=== PATIENT | female | born 1990 | race Caucasian/White ===

== ENCOUNTER 2021-03-09 15:42 | Emergency (ER) | payer OTHER, SELFPAY ==
[2021-03-09 16:09] VITALS: BP 138/85; PULSE 80; RESP 18; TEMP 36.7; O2SAT 98; BMI 39.5
--- NOTE | 2021-03-09 16:12 | ED_ITS ---
HPI - General Adult General Chief complaint: Abdominal Pain Stated complaint: dehydration Time Seen by Provider: 03/09/21 16:10 Related Data Previous Rx's Medication Instructions Recorded tramadol 50 mg tablet 50 mg PO Q6H PRN #20 tab 03/09/21 Allergies Allergy/AdvReac Type Severity Reaction Status Date / Time No Known Allergies Allergy Verified 03/09/21 16:09 [No Known Allergies*] [facility] Past Medical History Medical History IBS (irritable bowel syndrome) Vaso vagal episode Social History Social History Advance Directives: No Advance Directives Information Provided: Yes Patient : No Physical Exam Vital Signs: Vital Signs: Last Vital Signs Temp 98.3 F 03/09/21 21:55 Pulse 66 03/09/21 21:55 Resp 16 03/09/21 21:55 BP 139/82 03/09/21 21:55 Pulse Ox 100 03/09/21 21:55 Body Mass Index 39.5 Course Course Course Narrative: Patient presents to the the ED for left lower quadrant Abdominal pain, diarrhea, anoxeria, and runny nose. Patient states had similiar symptoms. Patient vital signs are stabe. Patient will have labs drawn including covid swab. This is Rapid MEdical screening. Medical Decision Making Lab Data Result diagrams: 03/09/21 20:10 03/09/21 20:10 Labs: Lab Results 03/09/21 03/09/21 03/09/21 Range/Units 20:10 20:10 20:10 WBC 6.6 (4.8-10.8) X10*3/uL RBC 5.39 (4.20-5.50) X10*6/uL Hgb 14.9 (12.0-16.0) g/dl Hct 45.1 (37-47) % MCV 83.7 (80-98) fL MCH 27.6 (27.0-33.0) pg MCHC 33.0 (31.0-35.0) g/dl RDW 13.7 (11.0-16.0) % Plt Count 230 (160-400) X10*3/uL MPV 10.4 (9.4-12.3) fL Immature Gran % (Auto) 0.6 H (0.0-0.4) % Neut % (Auto) 53.2 (45-73) % Lymph % (Auto) 35.9 (20-40) % [place] % (Auto) 9.7 (2-11) % Eos % (Auto) 0.0 (0-4) % Baso % (Auto) 0.6 (0-2) % Lymph # (Auto) 2.4 (1.2-4.9) X10*3/uL [place] # (Auto) 0.6 (0.1-1.2) X10*3/uL Eos # (Auto) 0.0 (0.0-0.4) X10*3/uL Baso # (Auto) 0.0 (0.0-0.2) X10*3/uL Abs Immat Gran (auto) 0.04 H (0.00-0.03) X10*3/uL Absolute Neuts (auto) 3.5 (2.0-8.3) X10*3/uL Absolute Nucleated RBC 0.000 (0.0-0.012) X10*3/uL Nucleated RBC % (auto) 0.0 (0.0-0.2) /100WBC Sodium 141 (135-145) mmol/L Potassium 4.0 (3.3-5.1) mmol/L Chloride 110 H (96-108) mmol/L Carbon Dioxide 22 (22-29) mmol/L Anion Gap 13 (12-20) BUN 7 L (9-16) mg/dL Creatinine 0.85 (0.5-1.4) mg/dL Estim Creat Clear Calc 129.5 Estimated GFR > 60 Random Glucose 82 (60-115) mg/dL Calcium 9.3 (8.4-10.2) mg/dL Magnesium (1.6-2.6) mg/dL Total Bilirubin 0.4 (0.0-1.0) mg/dL Direct Bilirubin < 0.2 (0.0-0.5) mg/dL AST 18 (5-31) U/L ALT 22 (0-31) U/L Alkaline Phosphatase 94 (39-117) U/L Total Creatine Kinase (26-140) U/L Total Protein 7.4 (6.5-8.0) g/dL Albumin 4.5 (3.5-5.0) g/dL Lipase 14 (8-78) U/L Urine Color Urine Appearance Urine pH (5.0-8.0) Ur Specific [place] (1.005-1.025) Urine Protein (NEG-TRACE) MG/DL Urine Glucose (UA) (NEG) MG/DL Urine Ketones (NEG) MG/DL Urine Blood (NEG) Urine Nitrite (NEG) Ur Leukocyte Esterase (NEG) Urine RBC (0) /HPF Urine WBC (0-4) /HPF Ur Squamous Epith Cells /LPF Urine Bacteria /LPF Urine Mucus /LPF Urine Test (NEGATIVE) Coronavirus (PCR) NEGATIVE (Negative) Influenza Type A (PCR) NEGATIVE (Negative) Influenza Type B (PCR) NEGATIVE (Negative) RSV RNA Qual (PCR) NEGATIVE (Negative) 03/09/21 03/09/21 03/09/21 Range/Units 20:10 20:15 20:15 WBC (4.8-10.8) X10*3/uL RBC (4.20-5.50) X10*6/uL Hgb (12.0-16.0) g/dl Hct (37-47) % MCV (80-98) fL MCH (27.0-33.0) pg MCHC (31.0-35.0) g/dl RDW (11.0-16.0) % Plt Count (160-400) X10*3/uL MPV (9.4-12.3) fL Immature Gran % (Auto) (0.0-0.4) % Neut % (Auto) (45-73) % Lymph % (Auto) (20-40) % [place] % (Auto) (2-11) % Eos % (Auto) (0-4) % Baso % (Auto) (0-2) % Lymph # (Auto) (1.2-4.9) X10*3/uL [place] # (Auto) (0.1-1.2) X10*3/uL Eos # (Auto) (0.0-0.4) X10*3/uL Baso # (Auto) (0.0-0.2) X10*3/uL Abs Immat Gran (auto) (0.00-0.03) X10*3/uL Absolute Neuts (auto) (2.0-8.3) X10*3/uL Absolute Nucleated RBC (0.0-0.012) X10*3/uL Nucleated RBC % (auto) (0.0-0.2) /100WBC Sodium (135-145) mmol/L Potassium (3.3-5.1) mmol/L Chloride (96-108) mmol/L Carbon Dioxide (22-29) mmol/L Anion Gap (12-20) BUN (9-16) mg/dL Creatinine (0.5-1.4) mg/dL Estim Creat Clear Calc Estimated GFR Random Glucose (60-115) mg/dL Calcium (8.4-10.2) mg/dL Magnesium 2.2 (1.6-2.6) mg/dL Total Bilirubin (0.0-1.0) mg/dL Direct Bilirubin (0.0-0.5) mg/dL AST (5-31) U/L ALT (0-31) U/L Alkaline Phosphatase (39-117) U/L Total Creatine Kinase 92 (26-140) U/L Total Protein (6.5-8.0) g/dL Albumin (3.5-5.0) g/dL Lipase (8-78) U/L Urine Color DARK YELLOW Urine Appearance CLOUDY Urine pH 6.0 (5.0-8.0) Ur Specific [place] >= 1.030 H (1.005-1.025) Urine Protein TRACE (NEG-TRACE) MG/DL Urine Glucose (UA) NEG (NEG) MG/DL Urine Ketones NEG (NEG) MG/DL Urine Blood 3+ H (NEG) Urine Nitrite NEG (NEG) Ur Leukocyte Esterase NEG (NEG) Urine RBC 76-150 H (0) /HPF Urine WBC 1-4 (0-4) /HPF Ur Squamous Epith Cells 1+ /LPF Urine Bacteria 1+ /LPF Urine Mucus TRACE /LPF Urine Test NEGATIVE (NEGATIVE) Coronavirus (PCR) (Negative) Influenza Type A (PCR) (Negative) Influenza Type B (PCR) (Negative) RSV RNA Qual (PCR) (Negative) Discharge Plan Discharge Clinical Impression: Irritable bowel syndrome Patient Disposition: Home, Self-Care Instructions: Irritable Bowel Syndrome (ED) Additional Instructions: Continue taking your dicyclomine 1 tablet every 8 hours as need Selective foods as advised by your gluing pressman Tramadol for increased pain Follow-up with PCP/gluing pressman Prescriptions: New tramadol 50 mg tablet 50 mg PO Q6H PRN (Reason: pain) Qty: 20 RF: 0 Interventions: ED Discharge Assessment Last Done: 03/09/21 22:44 Discharge Date/Time: 03/09/21 22:44
[2021-03-09 20:15] LABS: MANUAL DIFF FLAG NO
[2021-03-09 20:38] LABS: Basophils Percent Auto 0.6 % (0-2); Hematocrit 45.1 % (37-47); Hemoglobin 14.9 g/dl (12.0-16.0); Imm Gran Abs Auto 0.04 X10*3/uL (0.00-0.03); Imm Gran Pct Auto 0.6 % (0.0-0.4); Lymphocytes Absolute Auto 2.4 X10*3/uL (1.2-4.9); Lymphocytes Percent Auto 35.9 % (20-40); Mean Corpuscular Hemoglobin 27.6 pg (27.0-33.0); Mean Corpuscular Volume 83.7 fL (80-98); Mean Platelet Volume 10.4 fL (9.4-12.3); Monocytes Absolute Auto 0.6 X10*3/uL (0.1-1.2); Monocytes Percent Auto 9.7 % (2-11); Neutrophils Absolute Auto 3.5 X10*3/uL (2.0-8.3); Neutrophils Percent Auto 53.2 % (45-73); Platelet Count 230 X10*3/uL (160-400); Red Blood Count 5.39 X10*6/uL (4.20-5.50); Red Cell Distribution Width 13.7 % (11.0-16.0); White Blood Count 6.6 X10*3/uL (4.8-10.8)
[2021-03-09 20:41] LABS: Alanine Aminotransferase 22 U/L (0-31); Albumin Level 4.5 g/dL (3.5-5.0); Alkaline Phosphatase 94 U/L (39-117); Anion Gap 13 (12-20); Aspartate Amino Transferase 18 U/L (5-31); Bilirubin Direct < 0.2 mg/dL (0.0-0.5); Bilirubin Total 0.4 mg/dL (0.0-1.0); Blood Urea Nitrogen 7 mg/dL (9-16); Calcium 9.3 mg/dL (8.4-10.2); Carbon Dioxide 22 mmol/L (22-29); Chloride 110 mmol/L (96-108); Creatinine Clr Calc Pharmacy 129.5; Estimated Glomerular Filt Rate > 60; Glucose Random 82 mg/dL (60-115); Lipase 14 U/L (8-78); Magnesium 2.2 mg/dL (1.6-2.6); Sodium 141 mmol/L (135-145); Total Protein 7.4 g/dL (6.5-8.0)
[2021-03-09 20:46] LABS: Glucose Urine UA NEG (NEG); Leukocyte Esterase Urine NEG (NEG); Nitrite Urine NEG (NEG); Specific Gravity - Urine >= 1.030 (1.005-1.025); UACC Culture Trigger NO; Urine Blood 3+ (NEG); Urine Ketones NEG (NEG); Urine Protein TRACE MG/DL (NEG-TRACE)
[2021-03-09 20:49] LABS: UPreg QC Valid YES; Urine Pregnancy NEGATIVE (NEGATIVE)
[2021-03-09 20:50] LABS: Appearance Urine CLOUDY; Color Urine DARK YELLOW
[2021-03-09 20:57] LABS: Bacteria Urine 1+ /LPF; Mucus Urine TRACE /LPF; Squamous Epithelial Cell Urine 1+ /LPF
[2021-03-09 21:33] LABS: Influenza A PCR NEGATIVE (Negative); Influenza B PCR NEGATIVE (Negative); Resp Syncy Virus RNA Qual PCR NEGATIVE (Negative); SARS COV2 PCR INHOUSE NEGATIVE (Negative)
--- NOTE | 2021-03-09 21:51 | ED_ITS ---
HPI - Abdominal Pain General Chief Complaint: Abdominal Pain Stated Complaint: dehydration Time Seen by Provider: 03/09/21 16:10 Source: patient Mode of arrival: ambulatory History of Present Illness HPI narrative: Patient with history of anxiety IBS taking dicyclomine once in a while complaining of diffuse abdominal pain with bloating for last few days unable to eat much also complaining of nasal congestion no fever no cough patient had diarrhea 2 days ago no nausea no vomiting also has increased anxiety lately Related Data Previous Rx's Medication Instructions Recorded tramadol 50 mg tablet 50 mg PO Q6H PRN #20 tab 03/09/21 Allergies Allergy/AdvReac Type Severity Reaction Status Date / Time No Known Allergies Allergy Verified 03/09/21 16:09 [No Known Allergies*] Review of Systems Review of Systems Constitutional : No Weight loss, No Fever, No Chills ENT/Mouth : No sore throat, No Rhinorrhea Eyes: No Eye Pain, No Swelling Cardiovascular : No Chest Pain, no palpitations Respiratory : No Cough, No Sputum, no shortness of breath Gastrointestinal : no Nausea, No Vomiting, + Diarrhea, + abdominal Pain, no black stools Genitourinary : No Dysuria, No Urinary Frequency Musculoskeletal : No joint pain, No Myalgias, No Joint Swelling Skin : No Skin Lesions, No rash Neuro : No Weakness, No Numbness, No Dizziness, No Headache Psych : + Anxiety, No Depression Heme/Lymph: No Bruising, No Lymphadenopathy Endocrine : No Polyuria, No Polydipsia All other systems reviewed and are negative Physical Exam Vital Signs: Vital Signs: Last Vital Signs Temp 98.3 F 03/09/21 21:55 Pulse 66 03/09/21 21:55 Resp 16 03/09/21 21:55 BP 139/82 03/09/21 21:55 Pulse Ox 100 03/09/21 21:55 Body Mass Index 39.5 Appearance: Alert. Oriented X3. No acute distress. Eyes: No pallor or icterus ENT: Pharynx normal. Oral Mucosa moist Neck: Normal inspection. Neck supple. CVS: Normal heart rate and rhythm. Pulses normal. Respiratory: No respiratory distress. Equal air entry bilateral, no wheezing/rales/rhonchi Abdomen: Soft and nontender. Bowel sounds are present, no mass palpable, no CVA tenderness Skin: Skin warm and dry. Normal skin color. Normal skin turgor. Extremities: No lower extremity edema. No calf tenderness Neuro: Oriented X 3. MDM - Abdominal Pain Lab Data Attestation: I reviewed the patient's lab results. Result diagrams: 03/09/21 20:10 03/09/21 20:10 Labs: Lab Results 03/09/21 03/09/21 03/09/21 Range/Units 20:10 20:10 20:10 WBC 6.6 (4.8-10.8) X10*3/uL RBC 5.39 (4.20-5.50) X10*6/uL Hgb 14.9 (12.0-16.0) g/dl Hct 45.1 (37-47) % MCV 83.7 (80-98) fL MCH 27.6 (27.0-33.0) pg MCHC 33.0 (31.0-35.0) g/dl RDW 13.7 (11.0-16.0) % Plt Count 230 (160-400) X10*3/uL MPV 10.4 (9.4-12.3) fL Immature Gran % (Auto) 0.6 H (0.0-0.4) % Neut % (Auto) 53.2 (45-73) % Lymph % (Auto) 35.9 (20-40) % [place] % (Auto) 9.7 (2-11) % Eos % (Auto) 0.0 (0-4) % Baso % (Auto) 0.6 (0-2) % Lymph # (Auto) 2.4 (1.2-4.9) X10*3/uL [place] # (Auto) 0.6 (0.1-1.2) X10*3/uL Eos # (Auto) 0.0 (0.0-0.4) X10*3/uL Baso # (Auto) 0.0 (0.0-0.2) X10*3/uL Abs Immat Gran (auto) 0.04 H (0.00-0.03) X10*3/uL Absolute Neuts (auto) 3.5 (2.0-8.3) X10*3/uL Absolute Nucleated RBC 0.000 (0.0-0.012) X10*3/uL Nucleated RBC % (auto) 0.0 (0.0-0.2) /100WBC Sodium 141 (135-145) mmol/L Potassium 4.0 (3.3-5.1) mmol/L Chloride 110 H (96-108) mmol/L Carbon Dioxide 22 (22-29) mmol/L Anion Gap 13 (12-20) BUN 7 L (9-16) mg/dL Creatinine 0.85 (0.5-1.4) mg/dL Estim Creat Clear Calc 129.5 Estimated GFR > 60 Random Glucose 82 (60-115) mg/dL Calcium 9.3 (8.4-10.2) mg/dL Magnesium (1.6-2.6) mg/dL Total Bilirubin 0.4 (0.0-1.0) mg/dL Direct Bilirubin < 0.2 (0.0-0.5) mg/dL AST 18 (5-31) U/L ALT 22 (0-31) U/L Alkaline Phosphatase 94 (39-117) U/L Total Creatine Kinase (26-140) U/L Total Protein 7.4 (6.5-8.0) g/dL Albumin 4.5 (3.5-5.0) g/dL Lipase 14 (8-78) U/L Urine Color Urine Appearance Urine pH (5.0-8.0) Ur Specific [place] (1.005-1.025) Urine Protein (NEG-TRACE) MG/DL Urine Glucose (UA) (NEG) MG/DL Urine Ketones (NEG) MG/DL Urine Blood (NEG) Urine Nitrite (NEG) Ur Leukocyte Esterase (NEG) Urine RBC (0) /HPF Urine WBC (0-4) /HPF Ur Squamous Epith Cells /LPF Urine Bacteria /LPF Urine Mucus /LPF Urine Test (NEGATIVE) Coronavirus (PCR) NEGATIVE (Negative) Influenza Type A (PCR) NEGATIVE (Negative) Influenza Type B (PCR) NEGATIVE (Negative) RSV RNA Qual (PCR) NEGATIVE (Negative) 03/09/21 03/09/21 03/09/21 Range/Units 20:10 20:15 20:15 WBC (4.8-10.8) X10*3/uL RBC (4.20-5.50) X10*6/uL Hgb (12.0-16.0) g/dl Hct (37-47) % MCV (80-98) fL MCH (27.0-33.0) pg MCHC (31.0-35.0) g/dl RDW (11.0-16.0) % Plt Count (160-400) X10*3/uL MPV (9.4-12.3) fL Immature Gran % (Auto) (0.0-0.4) % Neut % (Auto) (45-73) % Lymph % (Auto) (20-40) % [place] % (Auto) (2-11) % Eos % (Auto) (0-4) % Baso % (Auto) (0-2) % Lymph # (Auto) (1.2-4.9) X10*3/uL [place] # (Auto) (0.1-1.2) X10*3/uL Eos # (Auto) (0.0-0.4) X10*3/uL Baso # (Auto) (0.0-0.2) X10*3/uL Abs Immat Gran (auto) (0.00-0.03) X10*3/uL Absolute Neuts (auto) (2.0-8.3) X10*3/uL Absolute Nucleated RBC (0.0-0.012) X10*3/uL Nucleated RBC % (auto) (0.0-0.2) /100WBC Sodium (135-145) mmol/L Potassium (3.3-5.1) mmol/L Chloride (96-108) mmol/L Carbon Dioxide (22-29) mmol/L Anion Gap (12-20) BUN (9-16) mg/dL Creatinine (0.5-1.4) mg/dL Estim Creat Clear Calc Estimated GFR Random Glucose (60-115) mg/dL Calcium (8.4-10.2) mg/dL Magnesium 2.2 (1.6-2.6) mg/dL Total Bilirubin (0.0-1.0) mg/dL Direct Bilirubin (0.0-0.5) mg/dL AST (5-31) U/L ALT (0-31) U/L Alkaline Phosphatase (39-117) U/L Total Creatine Kinase 92 (26-140) U/L Total Protein (6.5-8.0) g/dL Albumin (3.5-5.0) g/dL Lipase (8-78) U/L Urine Color DARK YELLOW Urine Appearance CLOUDY Urine pH 6.0 (5.0-8.0) Ur Specific [place] >= 1.030 H (1.005-1.025) Urine Protein TRACE (NEG-TRACE) MG/DL Urine Glucose (UA) NEG (NEG) MG/DL Urine Ketones NEG (NEG) MG/DL Urine Blood 3+ H (NEG) Urine Nitrite NEG (NEG) Ur Leukocyte Esterase NEG (NEG) Urine RBC 76-150 H (0) /HPF Urine WBC 1-4 (0-4) /HPF Ur Squamous Epith Cells 1+ /LPF Urine Bacteria 1+ /LPF Urine Mucus TRACE /LPF Urine Test NEGATIVE (NEGATIVE) Coronavirus (PCR) (Negative) Influenza Type A (PCR) (Negative) Influenza Type B (PCR) (Negative) RSV RNA Qual (PCR) (Negative) Discharge Plan Discharge Clinical Impression: Irritable bowel syndrome Qualifiers: Irritable bowel syndrome type: with diarrhea Qualified Code(s): K58.0 - Irrita ble bowel syndrome with diarrhea Patient Disposition: Home, Self-Care Instructions: Irritable Bowel Syndrome (ED) Additional Instructions: Continue taking your dicyclomine 1 tablet every 8 hours as need Selective foods as advised by your insole lip turner Tramadol for increased pain Follow-up with PCP/insole lip turner Prescriptions: New tramadol 50 mg tablet 50 mg PO Q6H PRN (Reason: pain) Qty: 20 RF: 0 PMFSH Past Medical History Medical History IBS (irritable bowel syndrome) Vaso vagal episode Social History Social History Advance Directives: No Advance Directives Information Provided: Yes Patient : No
[2021-03-09 21:55] VITALS: BP 139/82; PULSE 66; RESP 16; TEMP 36.8; O2SAT 100
[2021-03-09] MEDS: traMADoL HCL 50 MG TABLET PO (22:39)
[2021-03-09] MEDS: LORazepam 0.5 MG TABLET PO (22:40)
== END 2021-03-09 22:44 | disposition home or self-care (01) ==
PROVIDERS: Physician Assistant; Emergency Provider Internal Medicine; PCP Internal Medicine
DX: K58.0 Irritable bowel syndrome with diarrhea (principal); R10.30 Lower abdominal pain, unspecified; Z20.822 Contact with and (suspected) exposure to COVID-19; Z79.899 Other long term (current) drug therapy
CPT/HCPCS: 0241U; 36415; 80053; 80076; 81001; 81025; 82248; 82550; 83690; 83735; 85025; 99283; 99284

== ENCOUNTER 2021-03-16 11:16 | Emergency (ER) | payer OTHER, SELFPAY ==
--- NOTE | ~2021-03-16 | CT_ITS ---
EXAMINATION: CT ABDOMEN AND PELVIS WITHOUT CONTRAST CLINICAL INFORMATION: Right-sided abdominal pain. Evaluate for appendicitis. COMPARISON: CT abdomen/pelvis dated 02/21/2019. TECHNIQUE: Multidetector volumetric imaging was performed from the superior aspect of the liver through the pubic symphysis. Sagittal and coronal reformatted images were obtained on the technologist's workstation. This CT examination was performed using dose optimization techniques as appropriate, variously including the following: *Automated exposure control *Adjustment of mA and/or kV according to patient size (this includes techniques or standardized protocols for targeted exams where dose is matched to indication/reason for exam; i.e. extremities or head) *Use of iterative reconstruction technique DLP: 1117 mGy-cm. FINDINGS: LUNG BASES: The visualized lung bases are unremarkable. LIVER, GALLBLADDER, AND BILIARY TREE: The liver is normal in size, shape, and attenuation. No focal hepatic lesion or biliary ductal dilatation is present. The gallbladder is unremarkable with no evidence of radiopaque gallstones, gallbladder wall thickening, or obvious pericholecystic inflammatory changes. PANCREAS: Unremarkable. SPLEEN: Unremarkable. ADRENAL GLANDS: Unremarkable. KIDNEYS AND URETERS: The kidneys are normal in size, shape, and attenuation. Right mid/upper pole renal stone measuring 0.2 cm, too small to catheterize by Hounsfield units. This is located approximately 11.5 cm from the posterior axillary line. No additional renal or ureteral stone. No hydronephrosis or hydroureter. No perinephric stranding. BLADDER: Partially distended and unremarkable. GASTROINTESTINAL TRACT: No bowel wall thickening or associated inflammatory change. No small or large bowel obstruction. Unremarkable appendix. PERITONEAL CAVITY: No intra-abdominal free air or free fluid. No intra-abdominal mass or organized fluid collection/abscess formation. ABDOMINAL WALL: No significant hernia is appreciated. LYMPH NODES: No significant lymphadenopathy. VASCULAR: Unremarkable. PELVIC VISCERA: The uterus and adnexa are unremarkable. OSSEOUS STRUCTURES: Unremarkable. CT/CT abdomen pelvis wo con IMPRESSION: 1. Left mid/upper pole renal stone measuring 0.2 cm. No right renal stone. No ureteral stone. No hydronephrosis or hydroureter. Unremarkable urinary bladder. 2. No bowel wall thickening or associated fat or change. No small or large bowel obstruction. Unremarkable appendix. 3. No intra-abdominal mass, lymphadenopathy, or ascites.
--- NOTE | ~2021-03-16 | US_ITS ---
EXAMINATION: US ABDOMEN LIMITED CLINICAL INFORMATION: Epigastric pain. Gallbladder disease. COMPARISON: CT abdomen/pelvis dated 02/21/2019. Abdominal radiograph dated 03/19/2019. TECHNIQUE: Real-time imaging of the right upper quadrant abdominal viscera. FINDINGS: PANCREAS: The visualized pancreatic head and body are unremarkable. The tail is obscured by overlying bowel gas. LIVER: Unremarkable. The liver is normal in size. The liver contour is normal. Parenchymal echogenicity is normal. No focal hepatic lesion. There is no intrahepatic biliary duct dilatation seen. GALLBLADDER: Normal. The gallbladder is physiologically distended without evidence of stones, sludge, polyps, wall thickening or pericholecystic fluid. COMMON BILE DUCT: Normal in caliber measuring 0.4 cm in diameter. RIGHT KIDNEY: Normal. No hydronephrosis. No renal calculi or focal parenchymal lesions. The kidney measures 10.9 cm in maximum dimension. FREE FLUID: None. US/US abdomen limited IMPRESSION: Unremarkable examination.
[2021-03-16 11:59] VITALS: BP 129/77; PULSE 63; RESP 18; TEMP 36.9; O2SAT 100; BMI 37.5
--- NOTE | 2021-03-16 12:29 | ED_ITS ---
HPI - Abdominal Pain General Chief Complaint: Abdominal Pain Stated Complaint: stomach pains Time Seen by Provider: 03/16/21 12:27 Source: patient Mode of arrival: ambulatory Limitations: no limitations History of Present Illness HPI narrative: 30-year-old female came in for evaluation of abdominal pain. Abdominal pain started a week ago, diffuse abdominal pain that is mostly constant, pain is worsening with foods nothing relieves the, no other associated symptoms with to patient was seen in the department last week for evaluation of similar symptoms patient was diagnosed with IBS flare. No dysuria, no frequency. Related Data Previous Rx's Medication Instructions Recorded tramadol 50 mg tablet 50 mg PO Q6H PRN #20 tab 03/09/21 Allergies Allergy/AdvReac Type Severity Reaction Status Date / Time No Known Allergies Allergy Verified 03/09/21 16:09 [No Known Allergies*] Review of Systems Review of Systems All other systems are reviewed and are negative Constitutional: Reports as per HPI and Reports no additional constitutional complaints Eyes: Reports as per HPI and Reports no additional eye complaints Reports system reviewed and no additional complaints, except as documented Cardiovascular: Reports as per HPI and Reports no additional cardiovascular complaints Respiratory: Reports as per HPI and Reports no additional respiratory complaints Gastrointestinal: Reports as per HPI and Reports no additional gastrointestinal complaints Genitourinary: Reports no additional female genitourinary complaints Musculoskeletal: Reports no additional musculoskeletal complaints Skin/Breast: Reports system reviewed and no additional complaints, except as docu Psychiatric: Reports no additional psychiatric complaints Endocrine: Reports no additional endocrine complaints Hematologic/Lymphatic: Reports no additional hematologic/lymphatic complaints Allergic/Immunologic: Reports no additional allergic/immunologic complaints Reports system reviewed and no additional complaints, except as documented and Reports Abnormal speech present Physical Exam Vital Signs: Vital Signs: Last Vital Signs Temp 97.8 F 03/16/21 14:00 Pulse 59 03/16/21 14:00 Resp 18 03/16/21 11:59 BP 144/86 H 03/16/21 14:00 Pulse Ox 100 03/16/21 14:00 Body Mass Index 37.5 Vital signs have been reviewed as appeared to be correct. Blood pressure normal. Heart rate normal. Respiration rate normal. Temperature normal. Oxygen saturation normal. Appearance: Alert. Oriented X3. No acute distress. Head: Normal external exam. Normocephalic. Atraumatic. No [place] signs noted. No raccoon eyes noted Eyes: PERRLA. EOMI. Conjunctiva and sclera normal. Eyelids normal. ENT: TM's Normal. Pharynx normal. Uvula midline. Moist mucous membranes. No trismus noted. No drooling noted. No muffled voice noted. Neck: Normal inspection. Neck supple. FROM. No adenopathy. Thyroid Normal. No meningeal signs. No neck mass noted. CVS: Normal heart rate and rhythm. Heart sound normal. No murmurs noted. Pulses normal throughout. Respiratory: No respiratory distress. Painless inspiration. Breath sounds normal. No wheezes/rales/rhonchi noted. Chest nontender. No accessory muscle usage noted or decreased air movement noted. Abdomen: Soft and nontender. Bowel sounds normal in all 4 quadrants. No distention noted. No organomegaly noted. No visible injury noted. Back: No CVA tenderness. Full range of motion noted. Skin: Skin warm and dry. Normal skin color. Normal skin turgor. No rashes/lesions/lacerations noted. Extremities: No lower extremity edema. Extremities exhibit normal range of motion. Extremities nontender. Neuro: Oriented X 3. Cranial nerve exam: II-XII are grossly intact No motor deficit. No sensory deficit. Reflexes normal. Course Course Course Narrative: Assessment and plan. 30-year-old female came in for nonspecific abdominal pain that has improved but she is in the emergency department, patient was history of IBS. Patient's history, patient's exam, labs, and CT abdomen pelvis, and ultrasound of the gallbladder findings are more consistent with possible IBS versus gastritis. Patient is already having an appointment with systems applications programming lead in the next week patient was instructed to keep the appointment next week. MDM - Abdominal Pain Medical Records Attestation: I reviewed the patient's medical records. Lab Data Attestation: I reviewed the patient's lab results. Result diagrams: 03/16/21 12:50 03/16/21 12:49 Labs: Lab Results 03/16/21 03/16/21 03/16/21 Range/Units 12:49 12:49 12:50 WBC 5.1 (4.8-10.8) X10*3/uL RBC 5.26 (4.20-5.50) X10*6/uL Hgb 14.3 (12.0-16.0) g/dl Hct 43.3 (37-47) % MCV 82.3 (80-98) fL MCH 27.2 (27.0-33.0) pg MCHC 33.0 (31.0-35.0) g/dl RDW 13.6 (11.0-16.0) % Plt Count 210 (160-400) X10*3/uL MPV 9.9 (9.4-12.3) fL Immature Gran % (Auto) 0.2 (0.0-0.4) % Neut % (Auto) 51.1 (45-73) % Lymph % (Auto) 36.2 (20-40) % [place] % (Auto) 12.1 H (2-11) % Eos % (Auto) 0.0 (0-4) % Baso % (Auto) 0.4 (0-2) % Lymph # (Auto) 1.8 (1.2-4.9) X10*3/uL [place] # (Auto) 0.6 (0.1-1.2) X10*3/uL Eos # (Auto) 0.0 (0.0-0.4) X10*3/uL Baso # (Auto) 0.0 (0.0-0.2) X10*3/uL Abs Immat Gran (auto) 0.01 (0.00-0.03) X10*3/uL Absolute Neuts (auto) 2.6 (2.0-8.3) X10*3/uL Absolute Nucleated RBC 0.000 (0.0-0.012) X10*3/uL Nucleated RBC % (auto) 0.0 (0.0-0.2) /100WBC Sodium 142 (135-145) mmol/L Potassium 3.9 (3.3-5.1) mmol/L Chloride 109 H (96-108) mmol/L Carbon Dioxide 24 (22-29) mmol/L Anion Gap 13 (12-20) BUN 6 L (9-16) mg/dL Creatinine 0.86 (0.5-1.4) mg/dL Estim Creat Clear Calc 128.4 Estimated GFR > 60 Random Glucose 93 (60-115) mg/dL Calcium 9.1 (8.4-10.2) mg/dL Total Bilirubin 0.5 (0.0-1.0) mg/dL Direct Bilirubin < 0.2 (0.0-0.5) mg/dL AST 21 (5-31) U/L ALT 20 (0-31) U/L Alkaline Phosphatase 81 (39-117) U/L Total Protein 6.9 (6.5-8.0) g/dL Albumin 4.2 (3.5-5.0) g/dL Lipase 9 (8-78) U/L Urine Color YELLOW Urine Appearance CLEAR Urine pH 6.0 (5.0-8.0) Ur Specific [place] 1.025 (1.005-1.025) Urine Protein TRACE (NEG-TRACE) MG/DL Urine Glucose (UA) NEG (NEG) MG/DL Urine Ketones 5 (NEG) MG/DL Urine Blood TRACE (NEG) Urine Nitrite NEG (NEG) Ur Leukocyte Esterase NEG (NEG) Urine RBC 1-4 (0) /HPF Urine WBC 0-2 (0-4) /HPF Ur Squamous Epith Cells 2+ /LPF Urine Bacteria TRACE /LPF Urine Mucus 2+ /LPF Urine Test (NEGATIVE) 03/16/21 Range/Units 12:50 WBC (4.8-10.8) X10*3/uL RBC (4.20-5.50) X10*6/uL Hgb (12.0-16.0) g/dl Hct (37-47) % MCV (80-98) fL MCH (27.0-33.0) pg MCHC (31.0-35.0) g/dl RDW (11.0-16.0) % Plt Count (160-400) X10*3/uL MPV (9.4-12.3) fL Immature Gran % (Auto) (0.0-0.4) % Neut % (Auto) (45-73) % Lymph % (Auto) (20-40) % [place] % (Auto) (2-11) % Eos % (Auto) (0-4) % Baso % (Auto) (0-2) % Lymph # (Auto) (1.2-4.9) X10*3/uL [place] # (Auto) (0.1-1.2) X10*3/uL Eos # (Auto) (0.0-0.4) X10*3/uL Baso # (Auto) (0.0-0.2) X10*3/uL Abs Immat Gran (auto) (0.00-0.03) X10*3/uL Absolute Neuts (auto) (2.0-8.3) X10*3/uL Absolute Nucleated RBC (0.0-0.012) X10*3/uL Nucleated RBC % (auto) (0.0-0.2) /100WBC Sodium (135-145) mmol/L Potassium (3.3-5.1) mmol/L Chloride (96-108) mmol/L Carbon Dioxide (22-29) mmol/L Anion Gap (12-20) BUN (9-16) mg/dL Creatinine (0.5-1.4) mg/dL Estim Creat Clear Calc Estimated GFR Random Glucose (60-115) mg/dL Calcium (8.4-10.2) mg/dL Total Bilirubin (0.0-1.0) mg/dL Direct Bilirubin (0.0-0.5) mg/dL AST (5-31) U/L ALT (0-31) U/L Alkaline Phosphatase (39-117) U/L Total Protein (6.5-8.0) g/dL Albumin (3.5-5.0) g/dL Lipase (8-78) U/L Urine Color Urine Appearance Urine pH (5.0-8.0) Ur Specific [place] (1.005-1.025) Urine Protein (NEG-TRACE) MG/DL Urine Glucose (UA) (NEG) MG/DL Urine Ketones (NEG) MG/DL Urine Blood (NEG) Urine Nitrite (NEG) Ur Leukocyte Esterase (NEG) Urine RBC (0) /HPF Urine WBC (0-4) /HPF Ur Squamous Epith Cells /LPF Urine Bacteria /LPF Urine Mucus /LPF Urine Test NEGATIVE (NEGATIVE) Imaging Data CT scan - abdomen: Radiologist's impression: 1. Left mid/upper pole renal stone measuring 0.2 cm. No right renal stone. No ureteral stone. No hydronephrosis or hydroureter. Unremarkable urinary bladder. ?2. No bowel wall thickening or associated fat or change. No small or large bowel obstruction. Unremarkable appendix. ?3. No intra-abdominal mass, lymphadenopathy, or ascites.? US - abdomen: Radiologist's impression: Unremarkable exam. Discharge Plan Discharge Clinical Impression: Abdominal pain Patient Disposition: Home, Self-Care Instructions: Abdominal Pain (ED) Prescriptions: No Action tramadol 50 mg tablet 50 mg PO Q6H PRN (Reason: pain) Qty: 20 RF: 0 Referrals: Komal Diaz MD [Primary Care Provider] - 2 days PMFSH Past Medical History Medical History IBS (irritable bowel syndrome) Vaso vagal episode Social History Social History Advance Directives: No Advance Directives Information Provided: No Patient : No
[2021-03-16] MEDS: 0.9 % Sodium Chloride 1,000 ML 999 ML IVCONT (12:55)
[2021-03-16] MEDS: Famotidine/PF 20 MG/2 ML VIAL IVPUSH (12:55)
[2021-03-16 12:57] LABS: MANUAL DIFF FLAG NO
[2021-03-16 12:58] LABS: Basophils Percent Auto 0.4 % (0-2); Hematocrit 43.3 % (37-47); Hemoglobin 14.3 g/dl (12.0-16.0); Imm Gran Abs Auto 0.01 X10*3/uL (0.00-0.03); Imm Gran Pct Auto 0.2 % (0.0-0.4); Lymphocytes Absolute Auto 1.8 X10*3/uL (1.2-4.9); Lymphocytes Percent Auto 36.2 % (20-40); Mean Corpuscular Hemoglobin 27.2 pg (27.0-33.0); Mean Corpuscular Volume 82.3 fL (80-98); Mean Platelet Volume 9.9 fL (9.4-12.3); Monocytes Absolute Auto 0.6 X10*3/uL (0.1-1.2); Monocytes Percent Auto 12.1 % (2-11); Neutrophils Absolute Auto 2.6 X10*3/uL (2.0-8.3); Neutrophils Percent Auto 51.1 % (45-73); Platelet Count 210 X10*3/uL (160-400); Red Blood Count 5.26 X10*6/uL (4.20-5.50); Red Cell Distribution Width 13.6 % (11.0-16.0); White Blood Count 5.1 X10*3/uL (4.8-10.8)
[2021-03-16 13:01] LABS: Glucose Urine UA NEG (NEG); Leukocyte Esterase Urine NEG (NEG); Nitrite Urine NEG (NEG); Specific Gravity - Urine 1.025 (1.005-1.025); UACC Culture Trigger NO; Urine Blood TRACE (NEG); Urine Ketones 5 MG/DL (NEG); Urine Protein TRACE MG/DL (NEG-TRACE)
[2021-03-16 13:05] LABS: Appearance Urine CLEAR; Color Urine YELLOW
[2021-03-16 13:06] LABS: UPreg QC Valid YES; Urine Pregnancy NEGATIVE (NEGATIVE)
[2021-03-16 13:17] LABS: Bacteria Urine TRACE /LPF; Mucus Urine 2+ /LPF; Squamous Epithelial Cell Urine 2+ /LPF; WBC Urine 0-2 /HPF (0-4)
[2021-03-16 13:21] LABS: Alanine Aminotransferase 20 U/L (0-31); Albumin Level 4.2 g/dL (3.5-5.0); Alkaline Phosphatase 81 U/L (39-117); Anion Gap 13 (12-20); Aspartate Amino Transferase 21 U/L (5-31); Bilirubin Direct < 0.2 mg/dL (0.0-0.5); Bilirubin Total 0.5 mg/dL (0.0-1.0); Blood Urea Nitrogen 6 mg/dL (9-16); Calcium 9.1 mg/dL (8.4-10.2); Carbon Dioxide 24 mmol/L (22-29); Chloride 109 mmol/L (96-108); Creatinine Clr Calc Pharmacy 128.4; Estimated Glomerular Filt Rate > 60; Glucose Random 93 mg/dL (60-115); Lipase 9 U/L (8-78); Potassium 3.9 mmol/L (3.3-5.1); Sodium 142 mmol/L (135-145); Total Protein 6.9 g/dL (6.5-8.0)
[2021-03-16 14:00] VITALS: BP 144/86; PULSE 59; TEMP 36.6; O2SAT 100
[2021-03-16 15:13] VITALS: BP 127/72; PULSE 60; RESP 18; O2SAT 98
== END 2021-03-16 15:14 | disposition home or self-care (01) ==
PROVIDERS: Emergency Provider Emergency Medicine; PCP Internal Medicine
DX: R10.9 Unspecified abdominal pain (principal)
CPT/HCPCS: 36415; 74176; 76705; 80048; 80076; 81001; 81003; 81025; 83690; 85025; 96361; 96374; 99284

== ENCOUNTER 2021-07-17 18:15 | Emergency (ER) | payer OTHER, SELFPAY ==
--- NOTE | ~2021-07-17 | CT_ITS ---
EXAMINATION: CT ABDOMEN AND PELVIS WITH CONTRAST CLINICAL INFORMATION: Left lower quadrant and left flank pain. COMPARISON: Abdominal ultrasound dated from 03/16/[address] abdomen/pelvis dated from 12/14/2020. TECHNIQUE: Multidetector volumetric images were obtained from the superior aspect of the liver through the pubic symphysis following administration 85 mL of Omnipaque 350 intravenous contrast. Sagittal and coronal reformatted images were obtained on the technologist's workstation. Oral contrast: No This CT examination was performed using dose optimization techniques as appropriate, variously including the following: *Automated exposure control *Adjustment of mA and/or kV according to patient size (this includes techniques or standardized protocols for targeted exams where dose is matched to indication/reason for exam; i.e. extremities or head) *Use of iterative reconstruction technique DLP: 979 mGy-cm FINDINGS: LUNG BASES: Subsegmental atelectasis. No focal consolidation or pleural effusion. LIVER, GALLBLADDER, AND BILIARY TREE: The liver is normal in size, shape, and attenuation. No focal hepatic lesion or biliary ductal dilatation is present. The gallbladder is unremarkable with no evidence of radiopaque gallstones, gallbladder wall thickening, or obvious pericholecystic inflammatory changes. PANCREAS: Unremarkable. SPLEEN: Unremarkable. ADRENAL GLANDS: Unremarkable. KIDNEYS AND URETERS: The kidneys are normal in size, shape, and attenuation. Redemonstration of a punctate stone in the upper pole of the left kidney. No hydronephrosis or hydroureter. No perinephric stranding. BLADDER: Unremarkable. GASTROINTESTINAL TRACT: The stomach and the small bowel are nondilated. There are however several fluid-filled loops of small bowel with prominent mesenteric lymph nodes. Normal appendix. No pericolic inflammatory changes or bowel obstruction. Normal appendix. ABDOMINAL WALL: No significant hernia is appreciated. LYMPH NODES: Normal. VASCULAR: Unremarkable. PELVIC VISCERA: Unremarkable. OSSEOUS STRUCTURES: Unremarkable. CT/CT abdomen pelvis w con IMPRESSION: Fluid-filled loops of small bowel with prominent mesenteric lymph nodes and subtle mesentery engorgement raising the possibility of gastroenteritis in the appropriate clinical context. Nonobstructive left-sided renal calculus.
[2021-07-17 20:27] VITALS: BP 143/92; PULSE 84; RESP 16; TEMP 36.8; O2SAT 100; BMI 39.5
[2021-07-17 20:43] LABS: Basophils Percent Auto 0.2 % (0-2); Eosinophils Absolute Auto 0.1 X10*3/uL (0.0-0.4); Eosinophils Percent Auto 0.8 % (0-4); Hematocrit 43.2 % (37.0-47.0); Hemoglobin 14.2 g/dl (12.0-16.0); Imm Gran Abs Auto 0.03 X10*3/uL (0.00-0.03); Imm Gran Pct Auto 0.5 % (0.0-0.4); Lymphocytes Absolute Auto 1.6 X10*3/uL (1.2-4.9); Lymphocytes Percent Auto 26.7 % (20-40); MANUAL DIFF FLAG NO; Mean Corpuscular HGB Conc 32.9 g/dl (31.0-35.0); Mean Corpuscular Hemoglobin 27.6 pg (27.0-33.0); Mean Platelet Volume 9.3 fL (9.4-12.3); Monocytes Absolute Auto 0.9 X10*3/uL (0.1-1.2); Monocytes Percent Auto 14.6 % (2-11); Neutrophils Absolute Auto 3.5 x10*3/uL (2.0-8.3); Neutrophils Percent Auto 57.2 % (45-73); Platelet Count 196 X10*3/uL (160-400); Red Blood Count 5.14 X10*6/uL (4.20-5.50); Red Cell Distribution Width 13.2 % (11.0-16.0)
[2021-07-17 20:51] LABS: Appearance Urine CLEAR; Color Urine YELLOW; Glucose Urine UA NEG (NEG); Leukocyte Esterase Urine NEG (NEG); Nitrite Urine NEG (NEG); Specific Gravity - Urine >= 1.030 (1.005-1.025); Urine Blood NEG (NEG); Urine Ketones NEG (NEG); Urine Protein NEG (NEG-TRACE)
[2021-07-17 20:56] LABS: UPreg QC Valid YES; Urine Pregnancy NEGATIVE (NEGATIVE)
[2021-07-17 21:03] LABS: Alanine Aminotransferase 23 U/L (0-31); Albumin Level 4.2 g/dL (3.5-5.0); Alkaline Phosphatase 102 U/L (39-117); Anion Gap 11 (12-20); Aspartate Amino Transferase 24 U/L (5-31); Bilirubin Total 0.3 mg/dL (0.0-1.0); Blood Urea Nitrogen 9 mg/dL (9-16); Calcium 8.6 mg/dL (8.4-10.2); Carbon Dioxide 25 mmol/L (22-29); Chloride 108 mmol/L (96-108); Creatinine Clr Calc Pharmacy 139.2; Estimated Glomerular Filt Rate > 60; Glucose Random 78 mg/dL (60-115); Lipase 13 U/L (8-78); Potassium 3.9 mmol/L (3.3-5.1); Sodium 140 mmol/L (135-145); Total Protein 7.1 g/dL (6.5-8.0)
[2021-07-17] MEDS: Morphine Sulfate 4 MG/ML CARTRIDGE IM (22:53)
[2021-07-17] MEDS: 0.9 % Sodium Chloride 1,000 ML 999 ML IV (22:53)
[2021-07-17] MEDS: ondansetron HCL 4 MG/2 ML VIAL IVPUSH (22:53)
[2021-07-17] MEDS: iohexoL 350 MG/ML 100 ML INFUS..BTL 85 ML IV (23:16)
[2021-07-17 23:41] VITALS: BP 137/78; PULSE 73; RESP 16; O2SAT 99
[2021-07-18 00:01] LABS: COVID-19 Test Negative (Negative); IDNOW Serial# 9DD0AD1C
--- NOTE | 2021-07-18 00:05 | ED_ITS ---
HPI - Abdominal Pain General Chief Complaint: Abdominal Pain Stated Complaint: ? kidney infected Time Seen by Provider: 07/17/21 22:00 Source: patient Mode of arrival: ambulatory Limitations: no limitations History of Present Illness HPI narrative: 30-year-old female with 2 weeks low back pain presents for sudden worsening left back pain radiating to her left lower quadrant. States last night she was vomiting from the pain and felt feverish. She has that headache today, she has body aches and is nauseous. She has had diarrhea. She can not eat due to the nausea. Patient's past medical history of kidney stones, states this feels like a kidney stone. States the pain comes and goes and is worse with movement, is a 5/10. No abdominal surgeries. As she does have a history of IBS. Related Data Previous Rx's Medication Instructions Recorded tramadol 50 mg tablet 50 mg PO Q6H PRN #20 tab 03/09/21 ibuprofen 800 mg tablet 800 mg PO Q8H 7 Days #21 tab 07/18/21 Allergies Allergy/AdvReac Type Severity Reaction Status Date / Time No Known Allergies Allergy Verified 03/09/21 16:09 [No Known Allergies*] Review of Systems Constitutional: Reports body ache(s), Reports chills, Reports fatigue, Reports fever(s), Reports headache(s), Reports malaise and Denies weakness Eyes: Denies diplopia Denies vertigo, Denies dizziness, Denies otalgia, Reports headache(s), Denies mouth pain, Denies post nasal drip, Denies sinus pain, Denies sinus pressure, Denies sore throat and Denies throat swelling Cardiovascular: Denies chest pain, Denies syncope, Denies leg edema, Denies lightheadedness, Denies Loss of Consciousness, Denies palpitations and Denies dyspnea Respiratory: Denies chest congestion, Denies cough and Denies dyspnea Gastrointestinal: Reports abdominal pain, Denies hematochezia, Denies constipation, Reports diarrhea, Reports nausea and Denies vomiting Genitourinary: Denies hematuria, Denies dysuria, Denies urinary hesitancy, Denies urinary urgency, Denies vaginal discharge and Denies vaginal odor Musculoskeletal: Reports back pain Denies confusion, Denies vertigo, Denies dizziness, Denies syncope, Reports headache(s) and Denies weakness Psychiatric: Denies anxiety, Denies confusion and Denies depression Endocrine: Reports fatigue and Denies palpitations Allergic/Immunologic: Denies throat swelling Physical Exam Vital Signs: Vital Signs: Last Vital Signs Temp 98.2 F 07/17/21 20:27 Pulse 73 07/17/21 23:41 Resp 16 07/17/21 23:41 BP 137/78 07/17/21 23:41 Pulse Ox 99 07/17/21 23:41 BMI result Body Mass Index 39.5 Const: General: no acute distress, well developed, alert and awake; No confusion Nutritional Appearance: obese Orientation/consciousness: patient oriented x3 and No confusion Limitations: no limitations HENMT: Head: Yes normal to inspection, Yes normocephalic and Yes atraumatic Ears: hearing grossly normal bilaterally, external ears normal, TM's normal bilaterally and EAC's normal General nose exam: Normal external nose present Face and sinus: Yes normal facial exam and Yes sinuses nontender Mouth: Normal oral and palatal mucosa present Throat: Yes posterior oropharynx normal Eyes: Conjunctivae: conjunctivae normal Pupils: Equal, round and reactive pupils present EOM: EOMs intact bilaterally Neck: Neck: Yes full ROM, Yes no lymphadenopathy and Yes supple Resp: Effort & Inspection: normal respiratory effort and able to speak in complete sentences Auscultation: clear to auscultation bilaterally, no crackles, no rales, no rhonchi and no wheezes Cardio: Rate: regular rate Rhythm: regular rhythm Heart sounds: S1 normal heart sound present and S2 normal heart sound present GI: Inspection: Yes Abdominal panniculus present, Yes obesity and Yes striae Palpation (GI): Soft to palpation, Tenderness to palpation present (GI) in the LLQ, Guarding due to palpation present (GI) in the LLQ and not rigid Percussion: Yes normal to percussion Auscultation: normal bowel sounds : General: Yes no CVA tenderness Back/Spine/Pelvis: Back: no CVA tenderness Skin: General skin exam: no rashes or lesions noted Neuro: General: patient oriented x3 and No confusion Cranial nerves: Yes Equal, round and reactive pupils present Extrem: General: Yes normal to inspection and Yes full ROM Psych: Appearance: grossly normal Affect: normal affect Attitude: cooperative Thought process: Normal thought process present Course Course Course Narrative: 30-year-old female with 2 weeks of low back pain with 1 day of left low back pain radiating to her left lower quadrant. Patient has been vomiting from pain, has had diarrhea, has been nauseous. On exam, patient is tender and guarding in her left lower quadrant, no CVA tenderness in her left flank. Labs and urine are normal. CT shows Fluid-filled loops of small bowel with prominent mesenteric lymph nodes and subtle mesentery engorgement raising the possibility of gastroenteritis in the appropriate clinical context. ? Nonobstructive left-sided renal calculus Patient COVID negative. Most likely mesenteric adenitis. Treated patient with NSAIDs,, will have her follow-up with her primary care provider MDM - Abdominal Pain Lab Data Result diagrams: 07/17/21 20:38 07/17/21 20:38 Labs: Lab Results 07/17/21 07/17/21 07/17/21 Range/Units 20:35 20:35 20:38 WBC 6.0 (4.8-10.8) X10*3/uL RBC 5.14 (4.20-5.50) X10*6/uL Hgb 14.2 (12.0-16.0) g/dl Hct 43.2 (37.0-47.0) % MCV 84.0 (80.0-98.0) fL MCH 27.6 (27.0-33.0) pg MCHC 32.9 (31.0-35.0) g/dl RDW 13.2 (11.0-16.0) % Plt Count 196 (160-400) X10*3/uL MPV 9.3 L (9.4-12.3) fL Immature Gran % (Auto) 0.5 H (0.0-0.4) % Neut % (Auto) 57.2 (45-73) % Lymph % (Auto) 26.7 (20-40) % [place] % (Auto) 14.6 H (2-11) % Eos % (Auto) 0.8 (0-4) % Baso % (Auto) 0.2 (0-2) % Lymph # (Auto) 1.6 (1.2-4.9) X10*3/uL [place] # (Auto) 0.9 (0.1-1.2) X10*3/uL Eos # (Auto) 0.1 (0.0-0.4) X10*3/uL Baso # (Auto) 0.0 (0.0-0.2) X10*3/uL Abs Immat Gran (auto) 0.03 (0.00-0.03) X10*3/uL Absolute Neuts (auto) 3.5 (2.0-8.3) x10*3/uL Absolute Nucleated RBC 0.000 (0.0-0.012) X10*3/uL Nucleated RBC % (auto) 0.0 (0.0-0.2) /100WBC Sodium (135-145) mmol/L Potassium (3.3-5.1) mmol/L Chloride (96-108) mmol/L Carbon Dioxide (22-29) mmol/L Anion Gap (12-20) BUN (9-16) mg/dL Creatinine (0.5-1.4) mg/dL Estim Creat Clear Calc Estimated GFR Random Glucose (60-115) mg/dL Calcium (8.4-10.2) mg/dL Total Bilirubin (0.0-1.0) mg/dL AST (5-31) U/L ALT (0-31) U/L Alkaline Phosphatase (39-117) U/L Total Protein (6.5-8.0) g/dL Albumin (3.5-5.0) g/dL Lipase (8-78) U/L Urine Color YELLOW Urine Appearance CLEAR Urine pH 6.0 (5.0-8.0) Ur Specific [place] >= 1.030 H (1.005-1.025) Urine Protein NEG (NEG-TRACE) MG/DL Urine Glucose (UA) NEG (NEG) MG/DL Urine Ketones NEG (NEG) MG/DL Urine Blood NEG (NEG) Urine Nitrite NEG (NEG) Ur Leukocyte Esterase NEG (NEG) Urine Test NEGATIVE (NEGATIVE) COVID-19 (JUNAID) (Negative) COVID-19 Clin Com 07/17/21 07/17/21 Range/Units 20:38 23:26 WBC (4.8-10.8) X10*3/uL RBC (4.20-5.50) X10*6/uL Hgb (12.0-16.0) g/dl Hct (37.0-47.0) % MCV (80.0-98.0) fL MCH (27.0-33.0) pg MCHC (31.0-35.0) g/dl RDW (11.0-16.0) % Plt Count (160-400) X10*3/uL MPV (9.4-12.3) fL Immature Gran % (Auto) (0.0-0.4) % Neut % (Auto) (45-73) % Lymph % (Auto) (20-40) % [place] % (Auto) (2-11) % Eos % (Auto) (0-4) % Baso % (Auto) (0-2) % Lymph # (Auto) (1.2-4.9) X10*3/uL [place] # (Auto) (0.1-1.2) X10*3/uL Eos # (Auto) (0.0-0.4) X10*3/uL Baso # (Auto) (0.0-0.2) X10*3/uL Abs Immat Gran (auto) (0.00-0.03) X10*3/uL Absolute Neuts (auto) (2.0-8.3) x10*3/uL Absolute Nucleated RBC (0.0-0.012) X10*3/uL Nucleated RBC % (auto) (0.0-0.2) /100WBC Sodium 140 (135-145) mmol/L Potassium 3.9 (3.3-5.1) mmol/L Chloride 108 (96-108) mmol/L Carbon Dioxide 25 (22-29) mmol/L Anion Gap 11 L (12-20) BUN 9 (9-16) mg/dL Creatinine 0.79 (0.5-1.4) mg/dL Estim Creat Clear Calc 139.2 Estimated GFR > 60 Random Glucose 78 (60-115) mg/dL Calcium 8.6 (8.4-10.2) mg/dL Total Bilirubin 0.3 (0.0-1.0) mg/dL AST 24 (5-31) U/L ALT 23 (0-31) U/L Alkaline Phosphatase 102 D (39-117) U/L Total Protein 7.1 (6.5-8.0) g/dL Albumin 4.2 (3.5-5.0) g/dL Lipase 13 (8-78) U/L Urine Color Urine Appearance Urine pH (5.0-8.0) Ur Specific [place] (1.005-1.025) Urine Protein (NEG-TRACE) MG/DL Urine Glucose (UA) (NEG) MG/DL Urine Ketones (NEG) MG/DL Urine Blood (NEG) Urine Nitrite (NEG) Ur Leukocyte Esterase (NEG) Urine Test (NEGATIVE) COVID-19 (JUNAID) Negative (Negative) COVID-19 Clin Com See Note Discharge Plan Discharge Clinical Impression: Nonspecific mesenteric adenitis Patient Disposition: Home, Self-Care Instructions: Mesenteric Adenitis (ED) Additional Instructions: Your labs and urine are normal This is reassuring. Your COVID was negative You have inflamed lymph nodes in your belly which I think are causing her pain. Most likely this is a viral infection which will resolve on its Please take ibuprofen as prescribed. Please call your primary care provider on Tuesday for follow-up appointment. If you have worsening pain, fevers, if you cannot eat or drink, please return to emergency room Prescriptions: New ibuprofen 800 mg tablet 800 mg PO Q8H 7 Days Qty: 21 RF: 0 No Action tramadol 50 mg tablet 50 mg PO Q6H PRN (Reason: pain) Qty: 20 RF: 0 Interventions: ED Discharge Assessment Last Done: 07/18/21 00:24 Discharge Date/Time: 07/18/21 00:31 [facility] Past Medical History Medical History IBS (irritable bowel syndrome) Vaso vagal episode Social History Social History Advance Directives: No Advance Directives Information Provided: Yes Patient : No
[2021-07-18] MEDS: Ketorolac Tromethamine 30 MG/ML VIAL IVPUSH (00:27)
== END 2021-07-18 00:31 | disposition home or self-care (01) ==
PROVIDERS: Physician Assistant; Emergency Provider Emergency Medicine; PCP Internal Medicine
DX: I88.0 Nonspecific mesenteric lymphadenitis (principal); M54.50 Low back pain, unspecified; R10.32 Left lower quadrant pain; Z79.899 Other long term (current) drug therapy; Z20.822 Contact with and (suspected) exposure to COVID-19
CPT/HCPCS: 36415; 74177; 80053; 81003; 81025; 83690; 85025; 87635; 96361; 96372; 96374; 96375; 99284; J1885; J2270; J2405; Q9967

== ENCOUNTER 2021-07-30 21:32 | Emergency (ER) | payer OTHER, SELFPAY ==
[2021-07-30 22:07] VITALS: BP 136/84; PULSE 120; RESP 22; TEMP 36.8; O2SAT 96; BMI 39.5
[2021-07-30 22:26] LABS: COVID-19 Test Positive (Negative)
[2021-07-31 01:58] VITALS: BP 131/81; PULSE 104; RESP 16; TEMP 36.8; O2SAT 99
--- NOTE | 2021-07-31 02:16 | ED.URI ---
HPI - URI/Sore Throat General Chief Complaint: Upper Respiratory Symptoms Stated Complaint: diff breathing covid booster 07/28 Time Seen by Provider: 07/31/21 01:55 Source: patient Mode of arrival: ambulatory Limitations: no limitations History of Present Illness HPI Narrative: 30-year-old female who presents emergency department for evaluation of fever, chills, cough, chest pain, shortness of breath, body aches, dyspnea on exertion and diarrhea. The patient states that her and took a home COVID-19 testing tested positive. She states that she has received 2 Pfizer vaccinations with her last 1 on 12/16/2020 and she chest got a Moderna booster shot on 07/28/2021. Related Data Previous Rx's Medication Instructions Recorded tramadol 50 mg tablet 50 mg PO Q6H PRN #20 tab 03/09/21 ibuprofen 800 mg tablet 800 mg PO Q8H 7 Days #21 tab 07/18/21 Allergies Allergy/AdvReac Type Severity Reaction Status Date / Time No Known Allergies Allergy Verified 03/09/21 16:09 [No Known Allergies*] Review of Systems Review of Systems: Yes all other systems are reviewed and are negative Neurologic: Reports Abnormal speech present [facility] Past Medical History [facility] Narrative: Past medical history: Vasovagal syncope sleep apnea. Social history: She is . She lives at home with her and mother. She denies tobacco, alcohol use. She smokes marijuana twice a week. Medical History IBS (irritable bowel syndrome) Vaso vagal episode Social History Social History Advance Directives: No Patient : No Physical Exam Vital Signs: Vital Signs: Last Vital Signs Temp 98.3 F 07/31/21 01:58 Pulse 104 H 07/31/21 01:58 Resp 16 07/31/21 01:58 BP 131/81 07/31/21 01:58 Pulse Ox 99 07/31/21 01:58 BMI result Body Mass Index 39.5 Const: General: cooperative, no acute distress, well developed, alert and awake Orientation/consciousness: oriented to person HENMT: Head: Yes normal to inspection, Yes normocephalic and Yes atraumatic Ears: hearing grossly normal bilaterally General nose exam: Normal external nose present Face and sinus: Yes normal facial exam Mouth: Normal oral and palatal mucosa present, lip normal, tongue normal, oropharynx normal and moist mucous membranes Throat: Yes posterior oropharynx normal, Yes tonsils normal and Yes uvula midline Eyes: General: appearance normal, both eyes and all related structures Eyelids: Yes eyelids normal Conjunctivae: conjunctivae normal Sclerae: sclerae normal Corneas: corneas normal Pupils: Equal, round and reactive pupils present Neck: Neck: Yes normal visual inspection, Yes no lymphadenopathy, Yes trachea midline and Yes supple Thyroid: Thyroid normal Lymphatic: no lymphadenopathy noted Chest: Chest palpation & inspection: normal inspection of the chest and normal palpation of entire chest wall Resp: Effort & Inspection: normal respiratory effort and able to speak in complete sentences Auscultation: clear to auscultation bilaterally Cardio: Rate: regular rate Rhythm: regular rhythm Heart sounds: S1 normal heart sound present, S2 normal heart sound present and no murmurs GI: Inspection: Yes normal to inspection and Yes obesity Palpation (GI): Soft to palpation, nontender and No hepatosplenomegaly present Auscultation: normal bowel sounds : General: Yes no CVA tenderness Back/Spine/Pelvis: Back: no CVA tenderness Thoracic/Lumbar Spine: thoracic and lumbar spine normal to inspection Skin: General skin exam: no rashes or lesions noted, no erythema and no jaundice Lesions: no lesions Rashes: no rashes Trauma: no lacerations or abrasions Wounds: no wounds Neuro: General: oriented to person, moves all extremities and no focal motor deficits Cranial nerves: Yes Equal, round and reactive pupils present Cognition (Neuro): normal cognition Speech: Abnormal speech present Motor exam (neuro): Motor abnormalities not present Extrem: General: Yes normal to inspection, Yes no pedal edema and Yes no calf tenderness Right upper extremity: normal to inspection Left upper extremity: normal to inspection Right lower extremity: normal to inspection Left lower extremity: normal to inspection Psych: Appearance: grossly normal Mental Status: mental status grossly normal Speech and movement: Normal speech and movement present Affect: normal affect Attitude: cooperative Thought process: Normal thought process present Insight: Good insight present (Psych) Course Course Course Narrative: 30-year-old female who presents emergency department for evaluation of viral like illness with symptoms including fever, chills, myalgias, fatigue, shortness of breath, dyspnea on exertion and cough. She has also had diarrhea. The patient's tested positive for COVID-19. The patient has been vaccinated with 2 Pfizer vaccine with the 2nd vaccine given on 12/16/2020 and she received a Moderna booster on 07/28/2021. Patient's vital signs revealed tachycardia with a pulse of 120, repeat was 104. She initially had an elevated respiratory rate of 22 with a repeat of 16. O2 saturation was 96-99% on room air. Her examination was unremarkable. Patient's COVID-19 test was positive. I did discuss the management of COVID 19. The patient does have an elevated BMI of 39.5 and I think she would benefit from COVID-19 monoclonal antibodies therefore she will be referred to the [facility] COVID-19 infusion clinic. She was told to quarantine at home for at least 7 days or until her symptoms have completely resolved. She was given printed and verbal instructions and discharged home. MDM - URI/Sore Throat Lab Data Labs: Lab Results 07/30/21 Range/Units 22:13 COVID-19 (JUNAID) Positive A (Negative) COVID-19 Clin Com See Note Discharge Plan Discharge Clinical Impression: COVID-19 virus infection Patient Disposition: Home, Self-Care Instructions: COVID-19 (Coronavirus Disease 2019) (ED) Additional Instructions: Your COVID-19 test today was positive. Your O2 saturation was 99% on room air which is reassuring. We do not hospitalize people for COVID-19 unless the developed pneumonia and her O2 saturation is less than 90% on room air. I believe that you would benefit from receiving COVID-19 monoclonal antibodies therefore I am referring you to the [facility] COVID-19 monoclonal infusion clinic. I emailed your information to the clinic. Please call the number on the bottom of the referral form today to make sure they received this information and that they are scheduling you for the COVID-19 monoclonal antibody treatment. Take ibuprofen 200 mg pills, 3 pills every 6 hours as needed for pain. Take Tylenol (acetaminophen) 500 mg pills, 2 pills every 4 to 6 hours as needed for pain. Follow-up with your doctor in 2 days. Please return to the emergency department if your symptoms get worse or if you develop any symptoms that are concerning to you. You need to quarantine for 7-14 days or until your symptoms have completely resolved. Prescriptions: No Action tramadol 50 mg tablet 50 mg PO Q6H PRN (Reason: pain) Qty: 20 RF: 0 ibuprofen 800 mg tablet 800 mg PO Q8H 7 Days Qty: 21 RF: 0
== END 2021-07-31 02:49 | disposition home or self-care (01) ==
PROVIDERS: Emergency Provider Emergency Medicine Emergency Medical Services
DX: U07.1 COVID-19 (principal)
CPT/HCPCS: 36415; 87635; 99283

== ENCOUNTER 2022-10-19 16:46 | Inpatient (IN) | payer OTHER, SELFPAY ==
--- NOTE | ~2022-10-19 | CT_ITS ---
EXAMINATION: CT ABDOMEN AND PELVIS WITH CONTRAST CLINICAL INFORMATION: Left lower quadrant pain, rectal bleeding. COMPARISON: CT scan of the abdomen and pelvis dated 07/17/2021. TECHNIQUE: Multidetector volumetric images were obtained from the superior aspect of the liver through the pubic symphysis following administration 85 mL of Omnipaque 350 intravenous contrast. Sagittal and coronal reformatted images were obtained on the technologist's workstation. Oral contrast: No This CT examination was performed using dose optimization techniques as appropriate, variously including the following: *Automated exposure control *Adjustment of mA and/or kV according to patient size (this includes techniques or standardized protocols for targeted exams where dose is matched to indication/reason for exam; i.e. extremities or head) *Use of iterative reconstruction technique DLP: 976 mGy-cm FINDINGS: LUNG BASES: The visualized lung bases are unremarkable. LIVER, GALLBLADDER, AND BILIARY TREE: Unremarkable. PANCREAS: Unremarkable. SPLEEN: Unremarkable. ADRENAL GLANDS: Unremarkable. KIDNEYS AND URETERS: Mild left hydronephrosis is seen caused by a 0.4 cm calculus at the level the left ureterovesical junction (image 54, series 5). BLADDER: Unremarkable. GASTROINTESTINAL TRACT: The stomach, small bowel and appendix are unremarkable. The colon and rectum are unremarkable. ABDOMINAL WALL: No significant hernia is appreciated. LYMPH NODES: No lymphadenopathy. VASCULAR: Unremarkable. PELVIC VISCERA: Unremarkable. OSSEOUS STRUCTURES: L5-S1 small to moderate posterior disc osteophyte complex mildly narrowing the spinal canal with a mid sagittal diameter 12 mm (image 61, series 3; image 71, series 6). T12-L1 mild degenerative disc disease. Mild bilateral sacroiliac degenerative joint changes. CT/CT abdomen pelvis w IV con IMPRESSION: 1. Mild left hydronephrosis caused by 0.4 cm calculus at the level the left ureterovesical junction. 2. Degenerative changes in the thoracolumbar spine as detailed above.
[2022-10-19 17:32] VITALS: BP 152/93; PULSE 66; RESP 18; TEMP 36.6; O2SAT 100; BMI 41.0
--- NOTE | 2022-10-19 17:32 | ED_ITS ---
HPI - General Adult General Chief complaint: Abdominal Pain <BHAVANI Roy - Last Filed: 10/19/22 17:34> Stated complaint: Abdominal pain <BHAVANI Roy - Last Filed: 10/19/22 17:34> Time Seen by Provider: 10/19/22 20:50 <BHAVANI Roy - Last Filed: 10/19/22 17:34> Source: patient <Trupti Araujo NP - Last Filed: 10/20/22 00:18> Mode of arrival: ambulatory <Trupti Araujo NP - Last Filed: 10/20/22 00:18> Limitations: no limitations <Trupti Araujo NP - Last Filed: 10/20/22 00:18> History of Present Illness HPI narrative: 31-year-old female presents with left lower quadrant abdominal pain with rectal bleeding. Has had multiple episodes of nausea, vomiting, and syncope over the past day. States the pain is sharp and intense. She does not report any prior abdominal surgeries. <Trupti Araujo NP - Last Filed: 10/20/22 00:18> Onset (ago): day(s) (1) <Trupti Araujo NP - Last Filed: 10/20/22 00:18> Location: abdomen <Trupti Araujo NP - Last Filed: 10/20/22 00:18> Radiation: non-radiation <Trupti Araujo NP - Last Filed: 10/20/22 00:18> Severity: severe <Trupti Aruajo NP - Last Filed: 10/20/22 00:18> Severity scale (1-10): 9 <Trupti Araujo NP - Last Filed: 10/20/22 00:18> Quality: aching and sharp <Trupti Araujo NP - Last Filed: 10/20/22 00:18> Pain Consistency: constant <Trupti Araujo NP - Last Filed: 10/20/22 00:18> Relieving factors: none <Trupti Araujo NP - Last Filed: 10/20/22 00:18> Exacerbating factors: movement <Trupti Araujo NP - Last Filed: 10/20/22 00:18> Associated symptoms: nausea/vomiting and syncope <Trupti Araujo NP - Last Filed: 10/20/22 00:18> Treatments prior to arrival: NSAID <Trupti Araujo NP - Last Filed: 10/20/22 00:18> Related Data Home medications: Home Medications Medication Instructions Recorded Confirmed apremilast 30 mg tablet (Otezla) 1 tab PO BID 10/19/22 10/19/22 escitalopram oxalate 20 mg tablet 1 tab PO DAILY 10/19/22 10/19/22 <BHAVANI Roy - Last Filed: 10/19/22 17:34> Allergies/adverse reactions: Allergies Allergy/AdvReac Type Severity Reaction Status Date / Time No Known Allergies Allergy Verified 10/19/22 17:31 [No Known Allergies*] <BHAVANI Roy - Last Filed: 10/19/22 17:34> Review of Systems Review of Systems: Constitutional: No Fever, No Chills Cardiovascular: No Chest Pain, No SOB Respiratory: No Cough, No Dyspnea Gastrointestinal: Positive Nausea, phos Vomiting, positive Diarrhea, positive left lower abdominal Pain Genitourinary: No Dysuria, No Hematuria Musculoskeletal: No joint pain, No Myalgias, No Joint Swelling Skin: No Skin lacerations, No rash Neuro: No Weakness, No Numbness, No Paresthesias, positive syncope, No Dizziness, No Headache <Trupti Araujo NP - Last Filed: 10/20/22 00:18> Yes all other systems are reviewed and are negative <Trupti Araujo NP - Last Filed: 10/20/22 00:18> [facility] Past Medical History Attestation statement: The following information was validated with the patient. <Trupti Araujo NP - Last Filed: 10/20/22 00:18> Source: old records reviewed <Trupti Araujo NP - Last Filed: 10/20/22 00:18> Medical History: Medical History IBS (irritable bowel syndrome) Vaso vagal episode <BHAVANI Roy Last Filed: 10/19/22 17:34> Social History Social History: Social History Alcohol intake: current Alcohol intake frequency: holidays/special occasions only Smoked in Last 30 Days: No Use of substances other than those prescribed or required for medical reasons: No Advance Directives: No Advance Directives Information Provided: No <BHAVANI Roy - Last Filed: 10/19/22 17:34> Physical Exam ED Vital Signs: Vital Signs - 24 hr 10/19/22 17:32 10/19/22 22:41 Temperature 98 F 98.4 F Pulse Rate 66 65 Respiratory Rate 18 20 Blood Pressure 152/93 H 121/78 Pulse Oximetry 100 100 Oxygen Delivery Method Room Air Room Air BMI result Body Mass Index 41.0 <BHAVANI Roy - Last Filed: 10/19/22 17:34> Vital Signs - 24 hr 10/19/22 17:32 10/19/22 22:41 Temperature 98 F 98.4 F Pulse Rate 66 65 Respiratory Rate 18 20 Blood Pressure 152/93 H 121/78 Pulse Oximetry 100 100 Oxygen Delivery Method Room Air Room Air BMI result Body Mass Index 41.0 <Trupti Araujo NP - Last Filed: 10/20/22 00:18> Appearance: Alert. Oriented X3. Moderate distress. Eyes: Pupils equal, round and reactive to light. Sclera nonicteric. ENT: Pharynx normal. Neck: Normal inspection. Neck supple. CVS: Normal heart rate and rhythm. Pulses normal. Respiratory: No respiratory distress. Breath sounds normal. Abdomen: Soft and diffusely tender to left lower and left upper quadrant, positive left-sided CVA tenderness. Skin: Skin warm and dry. Normal skin color. Normal skin turgor. Extremities: No lower extremity edema. Gait not assessed for safety. Neuro: No motor deficit. No sensory deficit. Cranial nerves 2-12 intact. <Trupti Araujo NP - Last Filed: 10/20/22 00:18> Course Course Course Narrative: This is an RME: Additional HPI, ROS, PE not included below will be deferred to primary provider. 31-year-old female history of diverticulosis presents to the emergency department for evaluation of left lower quadrant pain with associated bright red blood per rectum x1 day. Patient tells me she has never been told to use diverticulitis. Patient did have a colonoscopy before, she tells me the last 1 was a few years ago, which was unremarkable. Patient reports associated nausea, vomiting, fatigue, malaise, decreased appetite. Denies chest pain, shortness of breath, recent sick contacts is, changes in diet, recent antibiotic use Physical exam with left lower quadrant tenderness to palpation. Plan urine, labs, CT of the abdomen pelvis. Ordered fluids, pain meds, antinausea medications, OBS <BHAVANI Roy - Last Filed: 10/19/22 17:34> This is an RME: Additional HPI, ROS, PE not included below will be deferred to primary provider. 31-year-old female history of diverticulosis presents to the emergency department for evaluation of left lower quadrant pain with associated bright red blood per rectum x1 day. Patient tells me she has never been told to use diverticulitis. Patient did have a colonoscopy before, she tells me the last 1 was a few years ago, which was unremarkable. Patient reports associated nausea, vomiting, fatigue, malaise, decreased appetite. Denies chest pain, shortness of breath, recent sick contacts is, changes in diet, recent antibiotic use Physical exam with left lower quadrant tenderness to palpation. Plan urine, labs, CT of the abdomen pelvis. Ordered fluids, pain meds, antinausea medications, OBS 31-year-old female presents with 1 day of left lower quadrant abdominal pain, has had a few episodes of syncope today, with pain accompanied by nausea vomiting and diarrhea. States that she has bloody diarrhea, has a history of IBS and diverticulosis. Patient does report several days of abdominal pain prior to this sharp intense pain. CT scan abdomen and pelvis is pending. Labs drawn while she was in the emergency department waiting room. Labs indicated elevated white count of 13.3, this could possibly be viral versus infectious etiology. Patient states that she has relief from pain with morphine, will wait for CT scan results. Physical exam is consistent with possible colitis versus diverticulitis versus kidney stone versus pyelonephritis versus appendicitis. 22:45 CT scan indicates obstructing calculus at the left UVJ with hydronephrosis. Physical exam is consistent with pyelonephritis, white count is 13, urinalysis positive for leuks and white blood cells. Will treat with ceftriaxone, cultures and and lactic pending. Discussion with hospitalist regarding plan of care to admit for pyelo. Call out to Urology for consult. 23:27 urology would like continuous fluids and Flomax. Will around in the morning. <Trupti Araujo NP - Last Filed: 10/20/22 00:18> Consultations Consultation #1: Hospitalist <Trupti Araujo NP - Last Filed: 10/20/22 00:18> Time: 23:07 <Trupti Araujo NP - Last Filed: 10/20/22 00:18> Consultation #2: Urology <Trupti Araujo NP - Last Filed: 10/20/22 00:18> Time: 23:07 <Trupti Araujo NP - Last Filed: 10/20/22 00:18> Medications Administered Discontinued Medications Generic Name Dose Route Start Last Admin Trade Name Freq PRN Reason Stop Dose Admin Sodium Chloride 1,000 mls @ 999 mls/hr 10/19/22 17:45 10/19/22 21:38 Ns IV 10/19/22 18:45 Infused .Q1H1M BENJAMIN Infusion Ceftriaxone Sodium 1 gm/ 50 mls @ 100 mls/hr 10/19/22 22:47 10/19/22 23:37 Sodium Chloride IV 10/19/22 23:16 100 mls/hr ONCE ONE Administration Sodium Chloride 1,000 mls @ 999 mls/hr 10/19/22 23:00 10/19/22 23:37 Ns IVCONT 10/20/22 00:00 999 mls/hr .Q1H1M BENJAMIN Administration Iohexol 100 ml 10/19/22 21:54 10/19/22 21:54 Iohexol 350 Mg/Ml 100 Ml Infus..Btl IV 10/19/22 21:55 85 ml ONCE ONE Administration Morphine Sulfate 4 mg 10/19/22 17:32 10/19/22 20:32 Morphine Sulfate 4 Mg/Ml Cartridge IVPUSH 10/19/22 17:33 4 mg ONCE ONE Administration Protocol Ondansetron HCl 4 mg 10/19/22 17:30 10/19/22 20:32 Ondansetron Odt 4 Mg Tab.Rapdis TRANSLINGU 10/19/22 17:31 4 mg ONCE ONE Administration <BHAVANI Roy - Last Filed: 10/19/22 17:34> Medications Administered Discontinued Medications Generic Name Dose Route Start Last Admin Trade Name Pelon PRN Reason Stop Dose Admin Sodium Chloride 1,000 mls @ 999 mls/hr 10/19/22 17:45 10/19/22 21:38 Ns IV 10/19/22 18:45 Infused .Q1H1M BENJAMIN Infusion Ceftriaxone Sodium 1 gm/ 50 mls @ 100 mls/hr 10/19/22 22:47 10/19/22 23:37 Sodium Chloride IV 10/19/22 23:16 100 mls/hr ONCE ONE Administration Sodium Chloride 1,000 mls @ 999 mls/hr 10/19/22 23:00 10/19/22 23:37 Ns IVCONT 10/20/22 00:00 999 mls/hr .Q1H1M BENJAMIN Administration Iohexol 100 ml 10/19/22 21:54 10/19/22 21:54 Iohexol 350 Mg/Ml 100 Ml Infus..Btl IV 10/19/22 21:55 85 ml ONCE ONE Administration Morphine Sulfate 4 mg 10/19/22 17:32 10/19/22 20:32 Morphine Sulfate 4 Mg/Ml Cartridge IVPUSH 10/19/22 17:33 4 mg ONCE ONE Administration Protocol Ondansetron HCl 4 mg 10/19/22 17:30 10/19/22 20:32 Ondansetron Odt 4 Mg Tab.Rapdis TRANSLINGU 10/19/22 17:31 4 mg ONCE ONE Administration <Trupti Araujo NP - Last Filed: 10/20/22 00:18> Medical Decision Making Differential Diagnosis Differential Diagnoses: The differential diagnosis associated with the presentation includes <Trupti Araujo NP - Last Filed: 10/20/22 00:18> Acute abdomen, diverticulitis, colitis, UTI pyelo, kidney stone <Trupti Araujo NP - Last Filed: 10/20/22 00:18> Admission/Observation Consideration of admission/observation: Escalation of care including admission/observation considered <Trupti Araujo NP - Last Filed: 10/20/22 00:18> Admitted for pyelonephritis <Trupti Araujo NP - Last Filed: 10/20/22 00:18> Consult Healthcare Provider Management of the patient was discussed with: Hospitalist <Trupti Araujo NP - Last Filed: 10/20/22 00:18> Plan is to admit for pyelo <Trupti Araujo NP - Last Filed: 10/20/22 00:18> Lab Data MDM Lab Attestation statement: I reviewed the patient's lab results. <Trupti Araujo NP - Last Filed: 10/20/22 00:18> Result Diagrams: 10/19/22 18:11 10/19/22 18:11 <BHAVANI Roy - Last Filed: 10/19/22 17:34> Labs: Lab Results 10/19/22 10/19/22 10/19/22 Range/Units 18:11 18:11 21:04 WBC 13.3 H (4.8-10.8) X10*3/uL RBC 5.18 (4.20-5.50) X10*6/uL Hgb 14.6 (12.0-16.0) g/dl Hct 44.2 (37.0-47.0) % MCV 85.3 (80.0-98.0) fL MCH 28.2 (27.0-33.0) pg MCHC 33.0 (31.0-35.0) g/dl RDW 13.2 (11.0-16.0) % Plt Count 241 (160-400) X10*3/uL MPV 10.5 (9.4-12.3) fL Immature Gran % (Auto) 1.4 H (0.0-0.4) % Neut % (Auto) 79.6 H (45-73) % Lymph % (Auto) 12.4 L (20-40) % Richardson % (Auto) 5.8 (2-11) % Eos % (Auto) 0.4 (0-4) % Baso % (Auto) 0.4 (0-2) % Lymph # (Auto) 1.6 (1.2-4.9) X10*3/uL Richardson # (Auto) 0.8 (0.1-1.2) X10*3/uL Eos # (Auto) 0.1 (0.0-0.4) X10*3/uL Baso # (Auto) 0.1 (0.0-0.2) X10*3/uL Abs Immat Gran (auto) 0.18 H (0.00-0.03) X10*3/uL Absolute Neuts (auto) 10.6 H (2.0-8.3) x10*3/uL Absolute Nucleated RBC 0.000 (0.0-0.012) X10*3/uL Nucleated RBC % (auto) 0.0 (0.0-0.2) /100WBC Sodium 141 (135-145) mmol/L Potassium 4.0 (3.3-5.1) mmol/L Chloride 108 (96-108) mmol/L Carbon Dioxide 24 (22-29) mmol/L Anion Gap 13 (12-20) BUN 11 (9-16) mg/dL Creatinine 0.86 (0.5-1.4) mg/dL Estim Creat Clear Calc 129.5 Estimated GFR > 60 Random Glucose 114 (60-115) mg/dL Lactic Acid (0.5-2.0) mmol/L Calcium 8.8 (8.4-10.2) mg/dL Magnesium 2.2 (1.6-2.6) mg/dL Total Bilirubin 0.3 (0.0-1.0) mg/dL AST 18 (5-31) U/L ALT 16 (0-31) U/L Alkaline Phosphatase 104 (39-117) U/L Total Protein 7.0 (6.5-8.0) g/dL Albumin 4.1 (3.5-5.0) g/dL Lipase 17 (8-78) U/L Urine Color Yellow Urine Appearance Clear Urine pH 5.5 (5.0-9.0) Ur Specific Sylvester 1.025 (1.005-1.025) Urine Protein 30 (1+) H (Neg-Trace) mg/dL Urine Glucose (UA) Negative (Negative) mg/dL Urine Ketones Trace (Negative) mg/dL Urine Blood Large (3+) H (Negative) Urine Nitrite Negative (Negative) Ur Leukocyte Esterase Trace H (Negative) Urine RBC >20 H (0-2) /HPF Urine WBC 6-10 H (0-5) /HPF Ur Squamous Epith Cells 3-5 (0-2) /HPF Urine Bacteria None Seen (None Seen) Hyaline Casts 0-2 (0-2) /LPF Urine Test (NEGATIVE) Blood Type Antibody Screen 10/19/22 10/19/22 10/19/22 Range/Units 21:04 21:04 23:28 WBC (4.8-10.8) X10*3/uL RBC (4.20-5.50) X10*6/uL Hgb (12.0-16.0) g/dl Hct (37.0-47.0) % MCV (80.0-98.0) fL MCH (27.0-33.0) pg MCHC (31.0-35.0) g/dl RDW (11.0-16.0) % Plt Count (160-400) X10*3/uL MPV (9.4-12.3) fL Immature Gran % (Auto) (0.0-0.4) % Neut % (Auto) (45-73) % Lymph % (Auto) (20-40) % Richardson % (Auto) (2-11) % Eos % (Auto) (0-4) % Baso % (Auto) (0-2) % Lymph # (Auto) (1.2-4.9) X10*3/uL Richardson # (Auto) (0.1-1.2) X10*3/uL Eos # (Auto) (0.0-0.4) X10*3/uL Baso # (Auto) (0.0-0.2) X10*3/uL Abs Immat Gran (auto) (0.00-0.03) X10*3/uL Absolute Neuts (auto) (2.0-8.3) x10*3/uL Absolute Nucleated RBC (0.0-0.012) X10*3/uL Nucleated RBC % (auto) (0.0-0.2) /100WBC Sodium (135-145) mmol/L Potassium (3.3-5.1) mmol/L Chloride (96-108) mmol/L Carbon Dioxide (22-29) mmol/L Anion Gap (12-20) BUN (9-16) mg/dL Creatinine (0.5-1.4) mg/dL Estim Creat Clear Calc Estimated GFR Random Glucose (60-115) mg/dL Lactic Acid 0.7 (0.5-2.0) mmol/L Calcium (8.4-10.2) mg/dL Magnesium (1.6-2.6) mg/dL Total Bilirubin (0.0-1.0) mg/dL AST (5-31) U/L ALT (0-31) U/L Alkaline Phosphatase (39-117) U/L Total Protein (6.5-8.0) g/dL Albumin (3.5-5.0) g/dL Lipase (8-78) U/L Urine Color Urine Appearance Urine pH (5.0-9.0) Ur Specific Sylvester (1.005-1.025) Urine Protein (Neg-Trace) mg/dL Urine Glucose (UA) (Negative) mg/dL Urine Ketones (Negative) mg/dL Urine Blood (Negative) Urine Nitrite (Negative) Ur Leukocyte Esterase (Negative) Urine RBC (0-2) /HPF Urine WBC (0-5) /HPF Ur Squamous Epith Cells (0-2) /HPF Urine Bacteria (None Seen) Hyaline Casts (0-2) /LPF Urine Test NEGATIVE (NEGATIVE) Blood Type O Negative Antibody Screen NEGATIVE <BHAVANI Roy - Last Filed: 10/19/22 17:34> Lab Results 10/19/22 10/19/22 10/19/22 Range/Units 18:11 18:11 21:04 WBC 13.3 H (4.8-10.8) X10*3/uL RBC 5.18 (4.20-5.50) X10*6/uL Hgb 14.6 (12.0-16.0) g/dl Hct 44.2 (37.0-47.0) % MCV 85.3 (80.0-98.0) fL MCH 28.2 (27.0-33.0) pg MCHC 33.0 (31.0-35.0) g/dl RDW 13.2 (11.0-16.0) % Plt Count 241 (160-400) X10*3/uL MPV 10.5 (9.4-12.3) fL Immature Gran % (Auto) 1.4 H (0.0-0.4) % Neut % (Auto) 79.6 H (45-73) % Lymph % (Auto) 12.4 L (20-40) % Richardson % (Auto) 5.8 (2-11) % Eos % (Auto) 0.4 (0-4) % Baso % (Auto) 0.4 (0-2) % Lymph # (Auto) 1.6 (1.2-4.9) X10*3/uL Richardson # (Auto) 0.8 (0.1-1.2) X10*3/uL Eos # (Auto) 0.1 (0.0-0.4) X10*3/uL Baso # (Auto) 0.1 (0.0-0.2) X10*3/uL Abs Immat Gran (auto) 0.18 H (0.00-0.03) X10*3/uL Absolute Neuts (auto) 10.6 H (2.0-8.3) x10*3/uL Absolute Nucleated RBC 0.000 (0.0-0.012) X10*3/uL Nucleated RBC % (auto) 0.0 (0.0-0.2) /100WBC Sodium 141 (135-145) mmol/L Potassium 4.0 (3.3-5.1) mmol/L Chloride 108 (96-108) mmol/L Carbon Dioxide 24 (22-29) mmol/L Anion Gap 13 (12-20) BUN 11 (9-16) mg/dL Creatinine 0.86 (0.5-1.4) mg/dL Estim Creat Clear Calc 129.5 Estimated GFR > 60 Random Glucose 114 (60-115) mg/dL Lactic Acid (0.5-2.0) mmol/L Calcium 8.8 (8.4-10.2) mg/dL Magnesium 2.2 (1.6-2.6) mg/dL Total Bilirubin 0.3 (0.0-1.0) mg/dL AST 18 (5-31) U/L ALT 16 (0-31) U/L Alkaline Phosphatase 104 (39-117) U/L Total Protein 7.0 (6.5-8.0) g/dL Albumin 4.1 (3.5-5.0) g/dL Lipase 17 (8-78) U/L Urine Color Yellow Urine Appearance Clear Urine pH 5.5 (5.0-9.0) Ur Specific Sylvester 1.025 (1.005-1.025) Urine Protein 30 (1+) H (Neg-Trace) mg/dL Urine Glucose (UA) Negative (Negative) mg/dL Urine Ketones Trace (Negative) mg/dL Urine Blood Large (3+) H (Negative) Urine Nitrite Negative (Negative) Ur Leukocyte Esterase Trace H (Negative) Urine RBC >20 H (0-2) /HPF Urine WBC 6-10 H (0-5) /HPF Ur Squamous Epith Cells 3-5 (0-2) /HPF Urine Bacteria None Seen (None Seen) Hyaline Casts 0-2 (0-2) /LPF Urine Test (NEGATIVE) Blood Type Antibody Screen 10/19/22 10/19/22 10/19/22 Range/Units 21:04 21:04 23:28 WBC (4.8-10.8) X10*3/uL RBC (4.20-5.50) X10*6/uL Hgb (12.0-16.0) g/dl Hct (37.0-47.0) % MCV (80.0-98.0) fL MCH (27.0-33.0) pg MCHC (31.0-35.0) g/dl RDW (11.0-16.0) % Plt Count (160-400) X10*3/uL MPV (9.4-12.3) fL Immature Gran % (Auto) (0.0-0.4) % Neut % (Auto) (45-73) % Lymph % (Auto) (20-40) % Richardson % (Auto) (2-11) % Eos % (Auto) (0-4) % Baso % (Auto) (0-2) % Lymph # (Auto) (1.2-4.9) X10*3/uL Richardson # (Auto) (0.1-1.2) X10*3/uL Eos # (Auto) (0.0-0.4) X10*3/uL Baso # (Auto) (0.0-0.2) X10*3/uL Abs Immat Gran (auto) (0.00-0.03) X10*3/uL Absolute Neuts (auto) (2.0-8.3) x10*3/uL Absolute Nucleated RBC (0.0-0.012) X10*3/uL Nucleated RBC % (auto) (0.0-0.2) /100WBC Sodium (135-145) mmol/L Potassium (3.3-5.1) mmol/L Chloride (96-108) mmol/L Carbon Dioxide (22-29) mmol/L Anion Gap (12-20) BUN (9-16) mg/dL Creatinine (0.5-1.4) mg/dL Estim Creat Clear Calc Estimated GFR Random Glucose (60-115) mg/dL Lactic Acid 0.7 (0.5-2.0) mmol/L Calcium (8.4-10.2) mg/dL Magnesium (1.6-2.6) mg/dL Total Bilirubin (0.0-1.0) mg/dL AST (5-31) U/L ALT (0-31) U/L Alkaline Phosphatase (39-117) U/L Total Protein (6.5-8.0) g/dL Albumin (3.5-5.0) g/dL Lipase (8-78) U/L Urine Color Urine Appearance Urine pH (5.0-9.0) Ur Specific Sylvester (1.005-1.025) Urine Protein (Neg-Trace) mg/dL Urine Glucose (UA) (Negative) mg/dL Urine Ketones (Negative) mg/dL Urine Blood (Negative) Urine Nitrite (Negative) Ur Leukocyte Esterase (Negative) Urine RBC (0-2) /HPF Urine WBC (0-5) /HPF Ur Squamous Epith Cells (0-2) /HPF Urine Bacteria (None Seen) Hyaline Casts (0-2) /LPF Urine Test NEGATIVE (NEGATIVE) Blood Type O Negative Antibody Screen NEGATIVE <Trupti Araujo NP - Last Filed: 10/20/22 00:18> Independent Interpretation I performed an independent interpretation of an: CT Scan <Trupti Araujo NP - Last Filed: 10/20/22 00:18> Radiology Impression Discussion of test interpretation with radiology: I have reviewed the radiologist's reading. <Trupti Araujo NP - Last Filed: 10/20/22 00:18> Radiologist Impression: EXAMINATION: CT ABDOMEN AND PELVIS WITH CONTRAST? CLINICAL INFORMATION: Left lower quadrant pain, rectal bleeding.? COMPARISON: CT scan of the abdomen and pelvis dated 07/17/2021. ? TECHNIQUE: Multidetector volumetric images were obtained from the superior aspect of the liver through the pubic symphysis following administration 85 mL of Omnipaque 350 intravenous contrast. Sagittal and coronal reformatted images were obtained on the technologist's workstation.? Oral contrast: No This CT examination was performed using dose optimization techniques as appropriate, variously including the following: *Automated exposure control *Adjustment of mA and/or kV according to patient size (this includes techniques or standardized protocols for targeted exams where dose is matched to indication/reason for exam; i.e. extremities or head) *Use of iterative reconstruction technique DLP: 976 mGy-cm FINDINGS: LUNG BASES: The visualized lung bases are unremarkable.? LIVER, GALLBLADDER, AND BILIARY TREE: Unremarkable. PANCREAS: Unremarkable.? SPLEEN: Unremarkable.? ADRENAL GLANDS: Unremarkable.? KIDNEYS AND URETERS: Mild left hydronephrosis is seen caused by a 0.4 cm calculus at the level the left ureterovesical junction (image 54, series 5). BLADDER: Unremarkable.? GASTROINTESTINAL TRACT: The stomach, small bowel and appendix are unremarkable. The colon and rectum are unremarkable. ABDOMINAL WALL: No significant hernia is appreciated.? LYMPH NODES: No lymphadenopathy. VASCULAR: Unremarkable. PELVIC VISCERA: Unremarkable.? OSSEOUS STRUCTURES: L5-S1 small to moderate posterior disc osteophyte complex mildly narrowing the spinal canal with a mid sagittal diameter 12 mm (image 61, series 3; image 71, series 6). T12-L1 mild degenerative disc disease. Mild bilateral sacroiliac degenerative joint changes. CT/CT abdomen pelvis w IV con IMPRESSION: 1. Mild left hydronephrosis caused by 0.4 cm calculus at the level the left ureterovesical junction. 2. Degenerative changes in the thoracolumbar spine as detailed above. <Trupti Araujo NP - Last Filed: 10/20/22 00:18> External Record Review External record reviewed: Outpatient record, Prior outpatient labs and Prior outpatient radiology <Trupti Araujo NP - Last Filed: 10/20/22 00:18> Prescription Management I considered prescription management with: Pain Medication and Antibiotic <Trupti Araujo NP - Last Filed: 10/20/22 00:18> Discharge Plan Discharge Clinical Impression: Abdominal pain, Kidney stone, Nausea & vomiting, Syncope, Pyelonephritis <BHAVANI Roy - Last Filed: 10/19/22 17:34> Patient Disposition: Admitted As Inpatient <BHAVANI Roy - Last Filed: 10/19/22 17:34>
[2022-10-19 18:17] LABS: MANUAL DIFF FLAG NO
[2022-10-19 18:27] LABS: Basophils Absolute Auto 0.1 X10*3/uL (0.0-0.2); Basophils Percent Auto 0.4 % (0-2); Eosinophils Absolute Auto 0.1 X10*3/uL (0.0-0.4); Eosinophils Percent Auto 0.4 % (0-4); Hematocrit 44.2 % (37.0-47.0); Hemoglobin 14.6 g/dl (12.0-16.0); Imm Gran Abs Auto 0.18 X10*3/uL (0.00-0.03); Imm Gran Pct Auto 1.4 % (0.0-0.4); Lymphocytes Absolute Auto 1.6 X10*3/uL (1.2-4.9); Lymphocytes Percent Auto 12.4 % (20-40); Mean Corpuscular Hemoglobin 28.2 pg (27.0-33.0); Mean Corpuscular Volume 85.3 fL (80.0-98.0); Mean Platelet Volume 10.5 fL (9.4-12.3); Monocytes Absolute Auto 0.8 X10*3/uL (0.1-1.2); Monocytes Percent Auto 5.8 % (2-11); Neutrophils Absolute Auto 10.6 x10*3/uL (2.0-8.3); Neutrophils Percent Auto 79.6 % (45-73); Platelet Count 241 X10*3/uL (160-400); Red Blood Count 5.18 X10*6/uL (4.20-5.50); Red Cell Distribution Width 13.2 % (11.0-16.0); White Blood Count 13.3 X10*3/uL (4.8-10.8)
[2022-10-19 18:38] LABS: Alanine Aminotransferase 16 U/L (0-31); Albumin Level 4.1 g/dL (3.5-5.0); Alkaline Phosphatase 104 U/L (39-117); Anion Gap 13 (12-20); Aspartate Amino Transferase 18 U/L (5-31); Bilirubin Total 0.3 mg/dL (0.0-1.0); Blood Urea Nitrogen 11 mg/dL (9-16); Calcium 8.8 mg/dL (8.4-10.2); Carbon Dioxide 24 mmol/L (22-29); Chloride 108 mmol/L (96-108); Creatinine Clr Calc Pharmacy 129.5; Estimated Glomerular Filt Rate > 60; Glucose Random 114 mg/dL (60-115); Lipase 17 U/L (8-78); Magnesium 2.2 mg/dL (1.6-2.6); Sodium 141 mmol/L (135-145)
[2022-10-19] MEDS: 0.9 % Sodium Chloride 1,000 ML 999 ML IV (20:32)
[2022-10-19] MEDS: Ondansetron ODT 4 MG TAB.RAPDIS TRANSLINGU (20:32)
[2022-10-19] MEDS: Morphine Sulfate 4 MG/ML CARTRIDGE IVPUSH (20:32)
[2022-10-19 21:18] LABS: Appearance Urine Clear; Color Urine Yellow; Glucose Urine UA Negative (Negative); Leukocyte Esterase Urine Trace (Negative); Nitrite Urine Negative (Negative); PH 5.5 (5.0-9.0); Specific Gravity - Urine 1.025 (1.005-1.025); UMIC TRIGGER UACC YES; Urine Blood Large (3+) (Negative); Urine Ketones Trace mg/dL (Negative); Urine Protein 30 (1+) mg/dL (Neg-Trace)
[2022-10-19 21:19] LABS: UPreg QC Valid YES; Urine Pregnancy NEGATIVE (NEGATIVE)
[2022-10-19 21:20] LABS: Bacteria Urine None Seen (None Seen); Hyaline Casts Urine 0-2 /LPF (0-2); RBC Urine >20 /HPF (0-2); UACC Culture Trigger YES
--- NOTE | 2022-10-19 21:49 | PC.NURSE ---
medications listed as late due to medications being ordered while pt was in the waiting room, all medications have now been administered per SEP. Pt is in CT at this time
[2022-10-19] MEDS: iohexoL 350 MG/ML 100 ML INFUS..BTL IV (21:54)
[2022-10-19 22:41] VITALS: BP 121/78; PULSE 65; RESP 20; TEMP 36.9; O2SAT 100
--- NOTE | 2022-10-19 23:00 | MHC.EDTECH ---
Dr Almazan called at 2300, voicemail left. Also sent [place], awaiting call back at this time.
--- NOTE | 2022-10-19 23:15 | MHC.EDTECH ---
Dr Almazan returns call at [phone].
[2022-10-19] MEDS: cefTRIAXone sodium 1 GM in 0.9 % Sodium Chloride 50 ML IV (23:37)
[2022-10-19] MEDS: 0.9 % Sodium Chloride 1,000 ML 999 ML IVCONT (23:37)
--- NOTE | 2022-10-19 23:45 | PM.IMHP ---
History of Present Illness Date of Service: 10/19/22 Chief Complaint: abd pain 31-year-old female with past medical history of IBS and Vasovagel syncope who presents to the hospital with complaints of left/abdominal pain. Patient states that the pain is 10/10, constant, started today, radiating to the groin. She has had urinary frequency. She feels feverish and has chills. Also associated with nausea, and few episodes of vomiting. Patient denies any chest pain, no shortness of breath, no lower extremity edema. No headache or change in vision. On arrival to the ED patient hemodynamically stable with no significant abnormal vitals Labs are significant for WBC count of 13.3, UA that is positive for leukocyte Estrace, WBC, Abdomen pelvic CT shows mild left hydronephrosis caused by an obstructing 0.4 cm calculus at the level of the left ureterovesical junction Discuss with Urology, recommended aggressive IV hydration, and admission for further management Review of Systems Review of Systems: Yes all other systems are reviewed and are negative [facility] Medical History (Updated 10/20/22 @ 05:54 by eVronica Payne MD) IBS (irritable bowel syndrome) Vaso vagal episode Surgical History (Updated 10/20/22 @ 05:50 by Veronica Payne MD) No pertinent past surgical history Social History Alcohol intake: current Alcohol intake frequency: holidays/special occasions only Patient Tobacco Use Status: Never used Tobacco Smoked in Last 30 Days: No Use of substances other than those prescribed or required for medical reasons: No Advance Directives: No Advance Directives Information Provided: No Nutrition Risks: No Nutritional Risk Patient : No Meds Allergies Allergy/AdvReac Type Severity Reaction Status Date / Time No Known Allergies Allergy Verified 10/19/22 17:31 [No Known Allergies*] Active Medications: Current Medications Sodium Chloride (Ns) 1,000 mls @ 999 mls/hr IVCONT .Q1H1M BENJAMIN Stop: 10/20/22 00:00 Last Admin: 10/19/22 23:37 Dose: 999 mls/hr Home Medications Medication Instructions Recorded Confirmed Last Taken Type apremilast 30 mg tablet (Otezla) 1 tab PO BID 03/21/23 03/21/23 03/20/23 History escitalopram oxalate 20 mg tablet 1 tab PO DAILY 10/19/22 10/19/22 10/19/22 History Physical Exam Vital Signs and Narrative: Vital Signs: Last Vital Signs Temp 98.4 F 10/19/22 22:41 Pulse 65 10/19/22 22:41 Resp 20 10/19/22 22:41 BP 121/78 10/19/22 22:41 Pulse Ox 100 10/19/22 22:41 O2 Del Method 10/19/22 22:41 BMI result Body Mass Index 41.0 Const: General: cooperative and no acute distress Orientation/consciousness: patient oriented x3 Eyes: General: appearance normal, both eyes and all related structures Pupils: Equal, round and reactive pupils present Resp: Effort & Inspection: normal respiratory effort Auscultation: clear to auscultation bilaterally Cardio: Rate: regular rate Rhythm: regular rhythm GI: Other: Left upper quadrant tenderness, no rebound or guarding Palpation (GI): Soft to palpation Auscultation: normal bowel sounds : Other: Left CVA tenderness Skin: General skin exam: no rashes or lesions noted Neuro: General: patient oriented x3 Cranial nerves: Yes Equal, round and reactive pupils present Cognition (Neuro): normal cognition Extrem: General: Yes normal to inspection and Yes no pedal edema Results Labs 10/19/22 18:11 10/19/22 18:11 Labs: Laboratory Results - last 24 hr 10/19/22 10/19/22 10/19/22 18:11 18:11 21:04 MCV 85.3 MCH 28.2 MCHC 33.0 RDW 13.2 Plt Count 241 MPV 10.5 Immature Gran % (Auto) 1.4 H Neut % (Auto) 79.6 H Lymph % (Auto) 12.4 L [place] % (Auto) 5.8 Eos % (Auto) 0.4 Baso % (Auto) 0.4 Lymph # (Auto) 1.6 [place] # (Auto) 0.8 Eos # (Auto) 0.1 Baso # (Auto) 0.1 Abs Immat Gran (auto) 0.18 H Absolute Neuts (auto) 10.6 H Absolute Nucleated RBC 0.000 Nucleated RBC % (auto) 0.0 Anion Gap 13 Estim Creat Clear Calc 129.5 Estimated GFR > 60 Random Glucose 114 Calcium 8.8 Magnesium 2.2 Total Bilirubin 0.3 AST 18 ALT 16 Alkaline Phosphatase 104 Total Protein 7.0 Albumin 4.1 Lipase 17 Urine Color Yellow Urine Appearance Clear Urine pH 5.5 Ur Specific [place] 1.025 Urine Protein 30 (1+) H Urine Glucose (UA) Negative Urine Ketones Trace Urine Blood Large (3+) H Urine Nitrite Negative Ur Leukocyte Esterase Trace H Urine RBC >20 H Urine WBC 6-10 H Ur Squamous Epith Cells 3-5 Urine Bacteria None Seen Hyaline Casts 0-2 Urine Test Blood Type Antibody Screen 10/19/22 10/19/22 21:04 21:04 MCV MCH MCHC RDW Plt Count MPV Immature Gran % (Auto) Neut % (Auto) Lymph % (Auto) [place] % (Auto) Eos % (Auto) Baso % (Auto) Lymph # (Auto) [place] # (Auto) Eos # (Auto) Baso # (Auto) Abs Immat Gran (auto) Absolute Neuts (auto) Absolute Nucleated RBC Nucleated RBC % (auto) Anion Gap Estim Creat Clear Calc Estimated GFR Random Glucose Calcium Magnesium Total Bilirubin AST ALT Alkaline Phosphatase Total Protein Albumin Lipase Urine Color Urine Appearance Urine pH Ur Specific [place] Urine Protein Urine Glucose (UA) Urine Ketones Urine Blood Urine Nitrite Ur Leukocyte Esterase Urine RBC Urine WBC Ur Squamous Epith Cells Urine Bacteria Hyaline Casts Urine Test NEGATIVE Blood Type O Negative Antibody Screen NEGATIVE Imaging Radiologist's Impressions: Impressions Abdomen/Pelvis CT 10/19/22 22:09 IMPRESSION: 1. Mild left hydronephrosis caused by 0.4 cm calculus at the level the left ureterovesical junction. 2. Degenerative changes in the thoracolumbar spine as detailed above. Assessment and Plan (1) Urolithiasis: Status: Acute (2) Hydronephrosis: Status: Acute (3) UTI (urinary tract infection): Status: Acute Plan 31-year-old was past medical history for vasovagal syncope as well as IBS presents to the hospital with abdominal pain found to have hydronephrosis with obstructing stone as well as UTI # acute hydronephrosis secondary urolithiasis - will treat with IV fluids, analgesics, - given the UTI patient will also receive IV antibiotics - follow cultures - Flomax - urology consulted # acute UTI - has urinary frequency, positive UA - in the setting of urolithiasis will treat with IV antibiotics - follow cultures # morbid obesity - continue Otezla DVT prophylaxis: Early ambulation, SCDs, for possible intervention for removal of the kidney stone Given patient's need for IV antibiotics/IV fluids patient required minimum 2 nights inpatient hospital stay for further management and monitoring Time Spent With Patient Time: Total time managing care of this patient today ____ minutes. Quality Stroke Does the patient have a stroke diagnosis?: No VTE Prior VTE?: No VTE Risk Level:: Medical - moderate - high VTE Device Contraindication: N/A - Device Ordered VTE Drug Contraindication: Treatment Not Indicated
[2022-10-19 23:54] LABS: Lactic Acid 0.7 mmol/L (0.5-2.0)
[2022-10-20] VITALS (7 sets, daily range): BP systolic 109–141; BP diastolic 59–81; PULSE 59–67; RESP 16–20; TEMP 36.4–36.6; O2SAT 96–100
[2022-10-20] MEDS: Lactated Ringers 1,000 ML 100 ML IVCONT ×3 (00:46→20:25)
[2022-10-20] MEDS: Tamsulosin HCL 0.4 MG CAPSULE PO (00:46)
[2022-10-20] MEDS: Morphine Sulfate 4 MG/ML CARTRIDGE IVPUSH ×2 (01:11→05:12)
[2022-10-20 02:28] LABS: COVID-19 Test Negative (Negative); IDNOW Serial# 6674DD1D
--- NOTE | 2022-10-20 02:52 | PC.NURSE ---
Report received from Rose GAMBLE.
--- NOTE | 2022-10-20 03:11 | PC.NURSE ---
pt ambulatory to the restroom with steady gait.
[2022-10-20 06:03] LABS: MANUAL DIFF FLAG NO
[2022-10-20 06:05] LABS: Basophils Percent Auto 0.4 % (0-2); Eosinophils Absolute Auto 0.1 X10*3/uL (0.0-0.4); Eosinophils Percent Auto 0.6 % (0-4); Hematocrit 37.9 % (37.0-47.0); Hemoglobin 12.5 g/dl (12.0-16.0); Imm Gran Abs Auto 0.05 X10*3/uL (0.00-0.03); Imm Gran Pct Auto 0.5 % (0.0-0.4); Lymphocytes Absolute Auto 3.4 X10*3/uL (1.2-4.9); Lymphocytes Percent Auto 33.6 % (20-40); Mean Platelet Volume 10.3 fL (9.4-12.3); Monocytes Absolute Auto 0.8 X10*3/uL (0.1-1.2); Monocytes Percent Auto 7.6 % (2-11); Neutrophils Absolute Auto 5.7 x10*3/uL (2.0-8.3); Neutrophils Percent Auto 57.3 % (45-73); Platelet Count 212 X10*3/uL (160-400); Red Blood Count 4.46 X10*6/uL (4.20-5.50); Red Cell Distribution Width 13.2 % (11.0-16.0)
[2022-10-20 06:20] LABS: Anion Gap 12 (12-20); Blood Urea Nitrogen 7 mg/dL (9-16); Calcium 8.1 mg/dL (8.4-10.2); Carbon Dioxide 21 mmol/L (22-29); Chloride 112 mmol/L (96-108); Creatinine Clr Calc Pharmacy 163.7; Estimated Glomerular Filt Rate > 60; Glucose Random 81 mg/dL (60-115); Potassium 3.7 mmol/L (3.3-5.1); Sodium 141 mmol/L (135-145)
--- NOTE | 2022-10-20 07:09 | PC.NURSE ---
Report to Erin GAMBLE for continued care.
--- NOTE | 2022-10-20 08:00 | PHA.MEDREC ---
Pharmacy Consult ? Medication Reconciliation Pharmacy has completed the medication reconciliation. Pt says she is only on the 2 medications (otezla and excitalopram). No otc meds. She is aware we don't have otezla here and was told she can have someone bring it in if she wants us to administer it here.
[2022-10-20] MEDS: Acetaminophen 325 MG TABLET 650 MG PO ×2 (09:30→13:12)
--- NOTE | 2022-10-20 09:30 | PC.NURSE ---
pt reports some confusion - reports believing it is from the morphine. medicated with tylenol for pain
--- NOTE | 2022-10-20 11:04 | MHC.CM.PN ---
Met with patient in regards to discharge planning. Patient lives with her mother and , ambulates independently and had no services prior to coming to the hospital. No services anticipated to be needed because patient is not homebound. PCP verified as Komal Colin. Patient received 2 Pfizer vaccines. Patient denies having a HCP. Information provided. Patient not interested in completing one at this time. Patient's will transport patient home when medically stable. Continue to monitor for d/c needs.
--- NOTE | 2022-10-20 11:11 | PC.NURSE ---
Dr Gomez at bedside to see pt. lab called r/t order for occult stool - pt reports having a 1x episode of rectal bleeding, juan luis red blood - reports a hx of hemmeroids.
--- NOTE | 2022-10-20 12:01 | HE.PHANOTE ---
Pharmacy has recieved patient's Otezla from [facility]. Pharmacy will send dose twice daily while patient is in the ER until patient moves to the unit. Once patient has a room on the unit will place in patient specific bin. Leatha Oreilly, MengD
[2022-10-20] MEDS: cefTRIAXone sodium 1 GM in 0.9 % Sodium Chloride 50 ML IV (13:12)
--- NOTE | 2022-10-20 14:02 | P.PNIM_ITS ---
Subjective Subjective Date of Service: 10/20/22 Interval History: abd pain Review of Systems stillhas flank pain slightly improvin but still significant pain no fever or chills Physical Exam Vital Signs: Vital Signs: Last Vital Signs Temp 97.9 F 10/20/22 05:57 Pulse 67 10/20/22 13:15 Resp 16 10/20/22 13:15 BP 125/74 10/20/22 13:15 Pulse Ox 99 10/20/22 13:15 O2 Del Method 10/20/22 13:15 BMI result Body Mass Index 41.0 Appearance: Alert.? Oriented X3.? not in distress.? cvs: rrr, [id number] . res: clear to auscultation ,no rhonchii or wheezing abd:soft,left flank pain -going to groin, bs present. ext pulses present , no cyanosis . neuro: axo3 , nonfocal. Objective Data Active Medications Acetaminophen (Acetaminophen 325 Mg Tablet) 650 mg PO Q6H PRN PRN Reason: Pain, Mild (Pain Scale 1-3) Last Admin: 10/20/22 09:30 Dose: 650 mg Documented By: JOSEFINA Docusate Sodium (Docusate Sodium 100 Mg Capsule) 100 mg PO DAILY PRN PRN Reason: Constipation Escitalopram Oxalate (Escitalopram Oxalate 20 Mg Tablet) 20 mg PO DAILY [facility] Hydromorphone HCl (Hydromorphone Hcl 0.5 Mg/0.5 Ml Syringe) 0.25 mg IVPUSH Q4H PRN; Protocol PRN Reason: Pain, Mild (Pain Scale 1-3) Lactated Ringer's (Lr) 1,000 mls @ 100 mls/hr IVCONT .Q10H [facility] Last Admin: 10/20/22 11:16 Dose: 100 mls/hr Documented By: JOSEFINA Ceftriaxone Sodium 1 gm/ (Sodium Chloride) 50 mls @ 100 mls/hr IV Q24H [facility] Last Admin: 10/20/22 13:12 Dose: 100 mls/hr Documented By: JOSEFINA Pt Own (Apremilast [ Otezla] 30 Mg Tablet ) 1 tab PO BID [facility] Last Admin: 10/20/22 12:54 Dose: 1 tab Documented By: JOSEFINA Ondansetron HCl (Ondansetron Hcl 4 Mg/2 Ml Vial) 4 mg IVPUSH Q8H PRN PRN Reason: Nausea and Vomiting Sodium Chloride (0.9 % Sodium Chloride Flush 3 Ml Syringe) 3 ml IVFLUSH QSHIFT [facility] Last Admin: 10/20/22 07:29 Dose: Not Given Documented By: JOSEFINA Non-Admin Reason: IV Running Tamsulosin HCl (Tamsulosin Hcl 0.4 Mg Capsule) 0.4 mg PO DAILY [facility] Labs 10/20/22 05:59 10/20/22 05:59 Labs: Laboratory Results - last 24 hr 10/19/22 10/19/22 10/19/22 18:11 18:11 21:04 MCV 85.3 MCH 28.2 MCHC 33.0 RDW 13.2 Plt Count 241 MPV 10.5 Immature Gran % (Auto) 1.4 H Neut % (Auto) 79.6 H Lymph % (Auto) 12.4 L [place] % (Auto) 5.8 Eos % (Auto) 0.4 Baso % (Auto) 0.4 Lymph # (Auto) 1.6 [place] # (Auto) 0.8 Eos # (Auto) 0.1 Baso # (Auto) 0.1 Abs Immat Gran (auto) 0.18 H Absolute Neuts (auto) 10.6 H Absolute Nucleated RBC 0.000 Nucleated RBC % (auto) 0.0 Anion Gap 13 Estim Creat Clear Calc 129.5 Estimated GFR > 60 Random Glucose 114 Lactic Acid Calcium 8.8 Magnesium 2.2 Total Bilirubin 0.3 AST 18 ALT 16 Alkaline Phosphatase 104 Total Protein 7.0 Albumin 4.1 Lipase 17 Urine Color Yellow Urine Appearance Clear Urine pH 5.5 Ur Specific [place] 1.025 Urine Protein 30 (1+) H Urine Glucose (UA) Negative Urine Ketones Trace Urine Blood Large (3+) H Urine Nitrite Negative Ur Leukocyte Esterase Trace H Urine RBC >20 H Urine WBC 6-10 H Ur Squamous Epith Cells 3-5 Urine Bacteria None Seen Hyaline Casts 0-2 Urine Test COVID-19 (JUNAID) COVID-19 Clin Com Blood Type Antibody Screen 10/19/22 10/19/22 10/19/22 21:04 21:04 23:28 MCV MCH MCHC RDW Plt Count MPV Immature Gran % (Auto) Neut % (Auto) Lymph % (Auto) [place] % (Auto) Eos % (Auto) Baso % (Auto) Lymph # (Auto) [place] # (Auto) Eos # (Auto) Baso # (Auto) Abs Immat Gran (auto) Absolute Neuts (auto) Absolute Nucleated RBC Nucleated RBC % (auto) Anion Gap Estim Creat Clear Calc Estimated GFR Random Glucose Lactic Acid 0.7 Calcium Magnesium Total Bilirubin AST ALT Alkaline Phosphatase Total Protein Albumin Lipase Urine Color Urine Appearance Urine pH Ur Specific [place] Urine Protein Urine Glucose (UA) Urine Ketones Urine Blood Urine Nitrite Ur Leukocyte Esterase Urine RBC Urine WBC Ur Squamous Epith Cells Urine Bacteria Hyaline Casts Urine Test NEGATIVE COVID-19 (JUNAID) COVID-19 Clin Com Blood Type O Negative Antibody Screen NEGATIVE 10/20/22 10/20/22 10/20/22 02:05 05:59 05:59 MCV 85.0 MCH 28.0 MCHC 33.0 RDW 13.2 Plt Count 212 MPV 10.3 Immature Gran % (Auto) 0.5 H Neut % (Auto) 57.3 Lymph % (Auto) 33.6 [place] % (Auto) 7.6 Eos % (Auto) 0.6 Baso % (Auto) 0.4 Lymph # (Auto) 3.4 [place] # (Auto) 0.8 Eos # (Auto) 0.1 Baso # (Auto) 0.0 Abs Immat Gran (auto) 0.05 H Absolute Neuts (auto) 5.7 Absolute Nucleated RBC 0.000 Nucleated RBC % (auto) 0.0 Anion Gap 12 Estim Creat Clear Calc 163.7 Estimated GFR > 60 Random Glucose 81 Lactic Acid Calcium 8.1 L D Magnesium Total Bilirubin AST ALT Alkaline Phosphatase Total Protein Albumin Lipase Urine Color Urine Appearance Urine pH Ur Specific [place] Urine Protein Urine Glucose (UA) Urine Ketones Urine Blood Urine Nitrite Ur Leukocyte Esterase Urine RBC Urine WBC Ur Squamous Epith Cells Urine Bacteria Hyaline Casts Urine Test COVID-19 (JUNAID) Negative COVID-19 Clin Com See Note Blood Type Antibody Screen Microbiology Microbiology Results: Microbiology 10/19/22 21:23 Urine Culture - Preliminary Urine clean catch - Urine baltazar top No growth to date. Assessment and Plan (1) Hydronephrosis: Status: Acute (2) Urolithiasis: Status: Acute (3) UTI (urinary tract infection): Status: Acute Plan 31-year-old was past medical history for vasovagal syncope as well as IBS presents to the hospital with abdominal pain found to have hydronephrosis with obstructing stone as well as UTI acute hydronephrosis secondary urolithiasis - will treat with IV fluids, analgesics, - given the UTI patient will also receive IV antibiotics - follow cultures - Flomax - urology consulted acute UTI - has urinary frequency, positive UA - in the setting of urolithiasis will treat with IV antibiotics - follow cultures morbid obesity - continue Otezla DVT prophylaxis:? Early ambulation, SCDs, for possible intervention for removal of the kidney stone inaptient need : IV antibiotics/IV fluids,possible urology procedure if needed. Time Spent With Patient Time: Total time managing care of this patient today ____ minutes. Quality Stroke Does the patient have a stroke diagnosis?: No VTE Prior VTE?: No VTE Risk Level:: Medical - moderate - high VTE Device Contraindication: N/A - Device Ordered VTE Drug Contraindication: Treatment Not Indicated
[2022-10-20] MEDS: HYDROmorphone HCl 0.5 MG/0.5 ML SYRINGE 0.25 MG IVPUSH ×2 (17:11→21:27)
[2022-10-21 03:06] VITALS: BP 143/85; PULSE 76; RESP 18; TEMP 36.4; O2SAT 98
[2022-10-21] MEDS: Lactated Ringers 1,000 ML 100 ML IVCONT (06:25)
[2022-10-21 07:22] VITALS: BP 146/84; PULSE 69; RESP 16; TEMP 36.3; O2SAT 98
[2022-10-21] MEDS: Escitalopram Oxalate 20 MG TABLET PO (09:32)
[2022-10-21] MEDS: Tamsulosin HCL 0.4 MG CAPSULE PO (09:33)
--- NOTE | 2022-10-21 09:45 | PM.UROPN ---
Subjective Subjective Date of Service: 10/21/22 Interval history: Appears that stone has passed May DC home with Ruchi Dejesus Six week follow-up with Urology for ultrasound Physical Exam Vital Signs: Vital Signs: Last Vital Signs Temp 97.3 F 10/21/22 07:22 Pulse 69 10/21/22 07:22 Resp 16 10/21/22 07:22 BP 146/84 H 10/21/22 07:22 Pulse Ox 98 10/21/22 07:22 O2 Del Method Room Air 10/21/22 07:22 BMI result Body Mass Index 41.0 Const: General: cooperative, healthy appearing, comfortable and no acute distress Orientation/consciousness: patient oriented x3 HEENT: Face and sinus: Yes normal facial exam Mouth: moist mucous membranes Neck: Neck: Yes normal visual inspection, Yes full ROM and Yes trachea midline Chest: Chest palpation & inspection: normal inspection of the chest Resp: Effort & Inspection: normal respiratory effort, able to speak in complete sentences and no respiratory distress GI: Inspection: Yes normal to inspection Back/Spine/Pelvis: Cervical Spine: normal cervical lordosis Thoracic/Lumbar Spine: thoracic and lumbar spine normal to inspection Skin: General skin exam: no rashes or lesions noted Neuro: General: patient oriented x3, tone normal and moves all extremities Extrem: General: Yes normal to inspection and Yes capillary refill normal Urology Results Labs 10/20/22 05:59 10/20/22 05:59 Progress Note: A&P Assessment and plan (1) Urolithiasis: Status: Acute Plan 6 week f/u US Time Spent With Patient Time: Total time managing care of this patient today ____ minutes. Progress Note: Quality Stroke Does the patient have a stroke diagnosis?: No
[2022-10-21] MEDS: ondansetron HCL 4 MG/2 ML VIAL IVPUSH (12:20)
[2022-10-21] MEDS: cefTRIAXone sodium 1 GM in 0.9 % Sodium Chloride 50 ML IV (12:20)
--- NOTE | 2022-10-21 12:35 | MHC.CM.PN ---
PT WILL DC HOME TODAY WITH NO SERVICES PT TO ARRANGE TRANSPORT
--- NOTE | 2022-10-21 17:25 | PM.DS ---
DS: Providers Provider Date of Service: 10/21/22 Date of admission: 10/19/22 23:41 Date of discharge: 10/21/22 Primary care physician: Komal Diaz MD Consults: 10/19/22 23:41 Consult to Urology Routine Consulting Provider: Andrei Sabillon Reason for consultation: obstructing urolithiasis with hydronephrosis and UTI DS: Diagnosis Discharge Diagnosis (1) Urolithiasis: Status: Acute DS: Summary Hospital Course Hospital Course: 31-year-old female with past medical history of IBS and Vasovagel syncope who presents to the hospital with complaints of left/abdominal pain.? Patient states that the pain is 10/10, constant, started today, radiating to the groin.? She has had urinary frequency.? She feels feverish and has chills.? Also associated with nausea, and few episodes of vomiting.? Patient denies any chest pain, no shortness of breath, no lower extremity edema.? No headache or change in vision.? On arrival to the ED patient hemodynamically stable with no significant abnormal vitals Labs are significant for WBC count of 13.3, UA that is positive for leukocyte Estrace, WBC, Abdomen pelvic CT shows mild left hydronephrosis caused by an obstructing 0.4 cm calculus at the level of the left ureterovesical junction Discuss with Urology, recommended aggressive IV hydration, and admission for further management. Hospital course: Patient admitted for Urolithiasis: For which patient was given hydration, pain medications and subsequently seems like Which she passed the stone, still somewhat sore but otherwise significantly better. Going home with Flomax and Naprosyn, patient is to follow up outpatient with Urology for outpatient ultrasound. patient has mild puria /asymptomatic bacteruria ,seen by urology-no need further antibiotics ,less likely UTI. Above management discussed the patient detail and she understand and in agreement with the above plan. plan: Started on Flomax and Naprosyn. Follow-up with Urology outpatientDr. Ridge. Above management discussed with patient in detail length, assessment and plan coordination time spent 50 minute, patient understand and in agreement with the above plan. Time Spent with Patient Time attestation: Total time managing care of this patient today ____ minutes. Discharge coordination time: Greater than 30 minutes Quality: Safe Use of Opioids Does Pt have an Active Cancer Diagnosis on the Problem List?: No Quality: Stroke Does the patient have a stroke diagnosis?: No Physical Exam Vital Signs: Vital Signs: Last Vital Signs Temp 97.3 F 10/21/22 07:22 Pulse 69 10/21/22 07:22 Resp 16 10/21/22 07:22 BP 146/84 H 10/21/22 07:22 Pulse Ox 98 10/21/22 07:22 O2 Del Method Room Air 10/21/22 07:22 BMI result Body Mass Index 41.0 ?Appearance: Alert.? Oriented X3.? not in distress.? cvs: rrr, [id number] . res: clear to auscultation ,no rhonchii or wheezing abd:soft,left flank pain improved but has some soarness, bs present. ext pulses present , no cyanosis . neuro: axo3 , nonfocal. DS: Data Data Completed and Pending Labs on day of discharge: Preliminary micro results at discharge 10/19/22 23:28 Blood Culture - Preliminary Blood - Venous No growth after 24 hours. 10/19/22 23:28 Blood Culture - Preliminary Blood - Venous No growth after 24 hours. Imaging Chest x-ray: Radiologist's impression: ITS Impressions Abdomen/Pelvis CT 10/19/22 22:09 IMPRESSION: 1. Mild left hydronephrosis caused by 0.4 cm calculus at the level the left ureterovesical junction. 2. Degenerative changes in the thoracolumbar spine as detailed above. Discharge Plan Discharge Anticipated Discharge Date/Time: 10/21/22 11:42 Patient Disposition: Home, Self-Care Discharge Diagnosis: Nephrolithiasis Referrals: Andrei Sabillon MD [Physician] - 2 Weeks (follow up outpatient) Komal Diaz MD [Primary Care Provider] - 1 Week Discharge Medications: New tamsulosin 0.4 mg Capsule 0.4 mg PO DAILY Qty: 30 0RF naproxen [Naprosyn] 500 mg tablet 500 mg PO BID PRN (Reason: pain) Qty: 10 0RF Continued escitalopram oxalate 20 mg tablet 1 tab PO DAILY Otezla 30 mg tablet 1 tab PO BID Discharge Orders: Discharge Order (Routine); Ordered 10/21/22 Ordered By: Ema Gomez Diet: Advance to usual diet Activity on Discharge: As tolerated Stand Alone Forms: Patient Portal Discharge page Care Plan Goals: Patient admitted for kidney stone: For which patient was given hydration, pain medications and subsequently seems like Which she passed the stone, still somewhat sore but otherwise significantly better. Going home with Flomax and Naprosyn, patient is to follow up outpatient with Urology for outpatient ultrasound. patient has mild puria /asymptomatic bacteruria ,seen by urology-no need further antibiotics ,less likely UTI. Above management discussed the patient detail and she understand and in agreement with the above plan. Health Concerns: As above. Plan of Treatment: As above. Assessment: As above. Discharge Date/Time: 10/21/22 15:29
== END 2022-10-21 15:29 | disposition home or self-care (01) | DRG 463 ==
LOC: HO.ED 23:11 → HO.EDOVER 23:47 → HO.S3 10-20 14:01
PROVIDERS: Nurse Practitioner Family; Physician Assistant; Admitting Provider Internal Medicine; Emergency Provider Internal Medicine; PCP Internal Medicine; Visit Provider Internal Medicine
DX: N13.6 Pyonephrosis (principal); E66.01 Morbid (severe) obesity due to excess calories; Z20.822 Contact with and (suspected) exposure to COVID-19; Z79.899 Other long term (current) drug therapy; Z68.41 Body mass index [BMI] 40.0-44.9, adult
CPT/HCPCS: 36415; 74177; 80048; 80053; 81001; 81025; 83605; 83690; 83735; 85025; 86850; 86900; 86901; 87040; 87086; 87635; 99285; J0696; J1170; J2270; J2405; Q9967

== ENCOUNTER 2022-10-21 16:21 | Emergency (ER) | payer OTHER, SELFPAY ==
[2022-10-21 16:25] VITALS: BP 140/100; PULSE 95; O2SAT 98
[2022-10-21 16:32] VITALS: BP 149/80; PULSE 78; RESP 16; TEMP 36.7; O2SAT 97; BMI 41.0
--- NOTE | 2022-10-21 16:34 | ED_ITS ---
HPI - General Adult General Chief complaint: Abdominal Pain Stated complaint: kidney stones Source: patient and RN notes reviewed Mode of arrival: ambulatory Limitations: no limitations History of Present Illness HPI narrative: 31-year-old female presents for evaluation of left lower abdominal pain. The patient was admitted here 2 days ago for acute left obstructive uropathy. She had a 4 mm stone at the UVJ. The patient was discharged home earlier this afternoon. She reports that she went home to shower and ?the pain came back. ? She was also treated with ceftriaxone for a couple of days due to UTI She has follow-up with Dr. Sabillon in 6 months for repeat ultrasound Currently she states her pain is 8/10 Related Data Home Medications Medication Instructions Recorded Confirmed apremilast 30 mg tablet (Otezla) 1 tab PO BID 10/19/22 10/20/22 escitalopram oxalate 20 mg tablet 1 tab PO DAILY 10/19/22 10/20/22 Previous Rx's Medication Instructions Recorded naproxen 500 mg tablet (Naprosyn) 500 mg PO BID PRN pain #10 tabs 10/21/22 oxycodone 5 mg tablet 5 mg PO TID PRN pain #9 tabs 10/21/22 tamsulosin 0.4 mg capsule 0.4 mg PO DAILY #30 caps 10/21/22 Allergies Allergy/AdvReac Type Severity Reaction Status Date / Time No Known Allergies Allergy Verified 10/19/22 17:31 [No Known Allergies*] Review of Systems Constitutional: Constitutional: Reports as per HPI, Denies chills, Denies fatigue, Denies fever(s) and Denies headache(s) ENT: Denies headache(s) Cardiovascular: Cardiovascular: Denies chest pain and Denies dyspnea Respiratory: Respiratory: Denies cough and Denies dyspnea Gastrointestinal: Gastrointestinal: Reports abdominal pain, Denies constipation and Denies vomiting Neurologic: Denies headache(s) and Denies focal weakness Endocrine: Endocrine: Denies fatigue [facility] Past Medical History Medical History (Updated 10/21/22 @ 19:49 by Raymond Chow) IBS (irritable bowel syndrome) Vaso vagal episode Surgical History (Updated 10/20/22 @ 05:50 by Veronica Payne MD) No pertinent past surgical history Social History Social History Household Members: Family Housing: House Do you presently have visiting nurse or other home services: No Alcohol intake: current Alcohol intake frequency: holidays/special occasions only Patient Tobacco Use Status: Never used Tobacco Substance Use Type: Marijuana Advance Directives: No Advance Directives Information Provided: Yes service: No Current occupational status: unemployed Physical Exam ED Vital Signs: Vital Signs - 24 hr 10/21/22 16:32 Temperature 98.1 F Pulse Rate 78 Respiratory Rate 16 Blood Pressure 149/80 H Pulse Oximetry 97 Oxygen Delivery Method Room Air BMI result Body Mass Index 41.0 Const General: healthy appearing, comfortable, no acute distress, alert and awake Nutritional Appearance: well nourished Orientation/consciousness: patient oriented x3 HENMT Head: Yes normocephalic and Yes atraumatic Neck Neck: Yes full ROM Resp Effort & Inspection: normal respiratory effort, able to speak in complete sentences, no audible wheezes and not labored Auscultation: clear to auscultation bilaterally GI Inspection: No distended Palpation (GI): Soft to palpation, not firm, Tenderness to palpation present (GI) in the LLQ, no guarding and not rigid Auscultation: normoactive bowel sounds Skin General skin exam: no rashes or lesions noted and elasticity normal Neuro General: patient oriented x3 Cranial nerves: Yes Bilaterally intact EOM present Cognition (Neuro): normal cognition Extrem Other: Moving all extremities well without any obvious deformities Course Course Course Narrative: 31 year old female presents for evaluation of left flank pain. Patient was admitted and discharged today for obstructive uropathy with UTI. Will repeat labs and a UA. She appears well with stable vitals Medical Decision Making Medical Decision Making MDM Narrative: 31-year-old female presents for evaluation of source of uropathy. She was discharged from inpatient earlier today for the same. Her urine does not appear to show acute infection. Kidney function is at her baseline. There is no leukocytosis. The patient's vitals are stable, no evidence of systemic infection. Patient medicated with Toradol, she was discharged with a short course of oxycodone Differential Diagnosis Obstructive uropathy Kidney stone UTI Pyelonephritis Lab Data 10/21/22 16:42 10/21/22 16:42 Labs: Lab Results 10/21/22 10/21/22 10/21/22 Range/Units 16:39 16:42 16:42 WBC 7.9 (4.8-10.8) X10*3/uL RBC 5.24 (4.20-5.50) X10*6/uL Hgb 14.5 (12.0-16.0) g/dl Hct 43.1 (37.0-47.0) % MCV 82.3 (80.0-98.0) fL MCH 27.7 (27.0-33.0) pg MCHC 33.6 (31.0-35.0) g/dl RDW 13.2 (11.0-16.0) % Plt Count 260 (160-400) X10*3/uL MPV 10.0 (9.4-12.3) fL Immature Gran % (Auto) 0.5 H (0.0-0.4) % Neut % (Auto) 61.8 (45-73) % Lymph % (Auto) 28.3 (20-40) % Sandoval % (Auto) 8.3 (2-11) % Eos % (Auto) 0.6 (0-4) % Baso % (Auto) 0.5 (0-2) % Lymph # (Auto) 2.2 (1.2-4.9) X10*3/uL Sandoval # (Auto) 0.7 (0.1-1.2) X10*3/uL Eos # (Auto) 0.1 (0.0-0.4) X10*3/uL Baso # (Auto) 0.0 (0.0-0.2) X10*3/uL Abs Immat Gran (auto) 0.04 H (0.00-0.03) X10*3/uL Absolute Neuts (auto) 4.9 (2.0-8.3) x10*3/uL Absolute Nucleated RBC 0.000 (0.0-0.012) X10*3/uL Nucleated RBC % (auto) 0.0 (0.0-0.2) /100WBC Sodium 142 (135-145) mmol/L Potassium 3.8 (3.3-5.1) mmol/L Chloride 106 (96-108) mmol/L Carbon Dioxide 26 (22-29) mmol/L Anion Gap 14 (12-20) BUN 8 L (9-16) mg/dL Creatinine 0.80 (0.5-1.4) mg/dL Estim Creat Clear Calc 139.1 Estimated GFR > 60 Random Glucose 104 (60-115) mg/dL Calcium 9.5 D (8.4-10.2) mg/dL Urine Color Yellow Urine Appearance Clear Urine pH 5.5 (5.0-9.0) Ur Specific [place] 1.015 (1.005-1.025) Urine Protein Negative (Neg-Trace) mg/dL Urine Glucose (UA) Negative (Negative) mg/dL Urine Ketones Negative (Negative) mg/dL Urine Blood Large (3+) H (Negative) Urine Nitrite Negative (Negative) Ur Leukocyte Esterase Trace H (Negative) Urine RBC >20 H (0-2) /HPF Urine WBC 0-5 (0-5) /HPF Ur Squamous Epith Cells 0-2 (0-2) /HPF Urine Bacteria None Seen (None Seen) Hyaline Casts 0-2 (0-2) /LPF Discharge Plan Discharge Clinical Impression: Kidney stone Patient Disposition: Home, Self-Care Instructions: Kidney Stones (ED) Additional Instructions: Your kidney function is unchanged and at your baseline. Your pain is likely from the kidney stone passing. There is no evidence of infection in your urine Continue to use Tylenol or naproxen You may take oxycodone for severe, breakthrough pain. This may make you sleepy, did not drink alcohol or drive after taking it Prescriptions: New oxycodone 5 mg tablet 5 mg PO TID PRN (Reason: pain) Qty: 9 0RF Rx Instructions: Partial Fill upon patient request. No Action escitalopram oxalate 20 mg tablet 1 tab PO DAILY Otezla 30 mg tablet 1 tab PO BID tamsulosin 0.4 mg Capsule 0.4 mg PO DAILY Qty: 30 0RF naproxen [Naprosyn] 500 mg tablet 500 mg PO BID PRN (Reason: pain) Qty: 10 0RF Interventions: ED Discharge Assessment Last Done: 10/21/22 19:56
[2022-10-21 16:48] LABS: MANUAL DIFF FLAG NO
[2022-10-21 16:51] LABS: Basophils Percent Auto 0.5 % (0-2); Eosinophils Absolute Auto 0.1 X10*3/uL (0.0-0.4); Eosinophils Percent Auto 0.6 % (0-4); Hematocrit 43.1 % (37.0-47.0); Hemoglobin 14.5 g/dl (12.0-16.0); Imm Gran Abs Auto 0.04 X10*3/uL (0.00-0.03); Imm Gran Pct Auto 0.5 % (0.0-0.4); Lymphocytes Absolute Auto 2.2 X10*3/uL (1.2-4.9); Lymphocytes Percent Auto 28.3 % (20-40); Mean Corpuscular HGB Conc 33.6 g/dl (31.0-35.0); Mean Corpuscular Hemoglobin 27.7 pg (27.0-33.0); Mean Corpuscular Volume 82.3 fL (80.0-98.0); Monocytes Absolute Auto 0.7 X10*3/uL (0.1-1.2); Monocytes Percent Auto 8.3 % (2-11); Neutrophils Absolute Auto 4.9 x10*3/uL (2.0-8.3); Neutrophils Percent Auto 61.8 % (45-73); Platelet Count 260 X10*3/uL (160-400); Red Blood Count 5.24 X10*6/uL (4.20-5.50); Red Cell Distribution Width 13.2 % (11.0-16.0); White Blood Count 7.9 X10*3/uL (4.8-10.8)
[2022-10-21 16:56] LABS: Appearance Urine Clear; Color Urine Yellow; Glucose Urine UA Negative (Negative); Leukocyte Esterase Urine Trace (Negative); Nitrite Urine Negative (Negative); PH 5.5 (5.0-9.0); Specific Gravity - Urine 1.015 (1.005-1.025); UMIC TRIGGER UACC YES; Urine Blood Large (3+) (Negative); Urine Ketones Negative (Negative); Urine Protein Negative (Neg-Trace)
[2022-10-21 17:01] LABS: Bacteria Urine None Seen (None Seen); Hyaline Casts Urine 0-2 /LPF (0-2); RBC Urine >20 /HPF (0-2); Squamous Epithelial Cell Urine 0-2 /HPF (0-2); WBC Urine 0-5 /HPF (0-5)
[2022-10-21 17:11] LABS: Anion Gap 14 (12-20); Blood Urea Nitrogen 8 mg/dL (9-16); Calcium 9.5 mg/dL (8.4-10.2); Carbon Dioxide 26 mmol/L (22-29); Chloride 106 mmol/L (96-108); Creatinine Clr Calc Pharmacy 139.1; Estimated Glomerular Filt Rate > 60; Glucose Random 104 mg/dL (60-115); Potassium 3.8 mmol/L (3.3-5.1); Sodium 142 mmol/L (135-145)
[2022-10-21] MEDS: Ketorolac Tromethamine 30 MG/ML VIAL IM (19:49)
== END 2022-10-21 19:58 | disposition home or self-care (01) ==
PROVIDERS: Physician Assistant; Emergency Provider Emergency Medicine; PCP Internal Medicine
DX: N20.0 Calculus of kidney (principal)
CPT/HCPCS: 36415; 80048; 81001; 85025; 96372; 99283; 99284; J1885

== ENCOUNTER 2022-10-22 08:40 | Day surgery (SDC) | payer OTHER, SELFPAY ==
[2022-10-22] VITALS (11 sets, daily range): BP systolic 119–161; BP diastolic 69–94; PULSE 65–94; RESP 14–18; TEMP 36.1–37.1; O2SAT 94–99; BMI 41.0
--- NOTE | ~2022-10-22 | FL_ITS ---
EXAMINATION: FL FLUOROSCOPY WITH IMAGES CLINICAL INFORMATION: Cystoscopy, ureteroscopy, and retrograde exam. COMPARISON: Previous CT of the abdomen and pelvis from earlier this month. TECHNIQUE: Fluoroscopy Supervised By: Dr. Cramer. Fluoroscopy Time: 29 seconds Cumulative Dose: 15 mGy-cm DAP: Not available Images: 4 FINDINGS: Initial image demonstrates wire projecting over the left renal collecting system and ureter. Final image demonstrates proximal end of a left internal ureteral stent. Left ureteral stone not well appreciated. FL/FL guidance in OR IMPRESSION: Fluoroscopy exam for urologic procedure.
--- NOTE | ~2022-10-22 | US_ITS ---
EXAMINATION: US RETROPERITONEAL LIMITED (RENAL ONLY) CLINICAL INFORMATION: Left flank pain, evaluate for hydronephrosis. COMPARISON: None available. Abdominal ultrasound dated 03/16/2021, CT scan of the abdomen and pelvis dated 10/19/2022. TECHNIQUE: Multiple 2-D grayscale and Doppler ultrasound images of the kidneys were obtained. FINDINGS: RIGHT KIDNEY: 12.1 x 5.0 x 5.4 cm (SAG x AP x TRV). No hydronephrosis or nephrolithiasis. Color Doppler showed no abnormal vascular flow. LEFT KIDNEY: 12.6 x 6.0 x 5.5 cm (SAG x AP x TRV). An echogenic focus is seen in the lower pole the left kidney measuring up to 1.3 cm. Mild left pelvic fullness. A 0.6 cm echogenic focus is seen at the level the left ureteropelvic junction. Doppler showed no abnormal vascular flow. URINARY BLADDER: Mildly distended without focal abnormality. US/US renal BI IMPRESSION: 1. Mild hydronephrosis caused by a 0.6 cm calculus at the level the left ureteropelvic junction similar to the previous CT scan. 2. Left lower pole intrarenal calculus versus artifact as there is no correlating calculus without size on the recent CT scan.
--- NOTE | 2022-10-22 09:01 | ED_ITS ---
HPI - Female Genitourinary General Chief complaint: Urogenital-Female Stated complaint: kidney stone Time Seen by Provider: 10/22/22 09:00 Source: patient and old records reviewed Mode of arrival: ambulatory Limitations: no limitations History of Present Illness HPI Narrative: 31-year-old female presents to the ER for evaluation of a painful kidney stone. She was admitted to the hospital 10/19 and just discharged yesterday after it was thought she passed a 0.4cm stone that was at the UVJ. She was discharged on Naprosyn and Flomax with plan to f/u with Urology in 6 weeks. She states she went home and last night after taking a shower the pain came back in her left side and left lower quadrant of her abdomen. She came to the ER last night. She was given Toradol and discharged with a short course of narcotic for pain control. She states the pain intensified this morning and became unbearable, 10/10. No improvement with taking Percocet and Advil 1 hour prior to arrival. She is nauseated but has not vomited. She has chills but no fevers. MD elicited complaint: flank pain Related Data Home Medications Medication Instructions Recorded Confirmed apremilast 30 mg tablet (Otezla) 1 tab PO BID 10/19/22 10/20/22 escitalopram oxalate 20 mg tablet 1 tab PO DAILY 10/19/22 10/20/22 Previous Rx's Medication Instructions Recorded naproxen 500 mg tablet (Naprosyn) 500 mg PO BID PRN pain #10 tabs 10/21/22 oxycodone 5 mg tablet 5 mg PO TID PRN pain #9 tabs 10/21/22 tamsulosin 0.4 mg capsule 0.4 mg PO DAILY #30 caps 10/21/22 Allergies Allergy/AdvReac Type Severity Reaction Status Date / Time No Known Allergies Allergy Verified 10/19/22 17:31 [No Known Allergies*] Review of Systems Review of Systems: Yes all other systems are reviewed and are negative [facility] Past Medical History Medical History (Updated 10/22/22 @ 12:11 by BHAVANI Sargent) IBS (irritable bowel syndrome) Vaso vagal episode Surgical History (Updated 10/20/22 @ 05:50 by Veronica Payne MD) No pertinent past surgical history Social History Social History Household Members: Family Housing: House Do you presently have visiting nurse or other home services: No Alcohol intake: current Alcohol intake frequency: holidays/special occasions only Patient Tobacco Use Status: Never used Tobacco Substance Use Type: Marijuana Advance Directives: Yes Advance Directives Information Provided: Yes Advance Directives on File: No service: No Current occupational status: unemployed Physical Exam Vital Signs: Vital Signs: Last Vital Signs Temp 97.1 F 10/22/22 13:20 Pulse 68 10/22/22 13:20 Resp 14 10/22/22 13:20 BP 130/69 10/22/22 13:20 Pulse Ox 95 10/22/22 13:20 O2 Del Method Room Air 10/22/22 13:20 BMI result Body Mass Index 41.0 Appearance: Alert. Oriented X3. No acute distress. Eyes: Pupils equal, round and reactive to light. ENT: Pharynx normal. Neck: Normal inspection. Neck supple. CVS: Normal heart rate and rhythm. Pulses normal. Respiratory: No respiratory distress. Breath sounds normal. Abdomen: Soft with left lower abdominal tenderness, no rebound or guarding, normal active BS x4. +CVA tenderness on the left Skin: Skin warm and dry. Normal skin color. Normal skin turgor. No rashes. Extremities: No lower extremity edema. Neuro: Oriented X 3. No motor deficit. No sensory deficit. Course Reevaluation(s) Reevaluation #1: still c/o pain after morphine and toradol iv dilaudid ordered pending renal U/S Reevaluation #2: renal u/s showing mild hydro w/ 0.6cm stone UVJ. Dr. Sabillon to add on procedure today. patient updated on plan of care. Medications Administered Discontinued Medications Generic Name Dose Route Start Last Admin Trade Name Freq PRN Reason Stop Dose Admin Acetaminophen 975 mg 10/22/22 11:41 10/22/22 11:57 Acetaminophen 325 Mg Tablet PO 10/22/22 11:42 975 mg ONCE ONE Administration Hydromorphone HCl 1 mg 10/22/22 10:31 10/22/22 10:44 Hydromorphone Hcl 1 Mg/Ml Syringe IVPUSH 10/22/22 10:32 1 mg ONCE ONE Administration Protocol Sodium Chloride 1,000 mls @ 999 mls/hr 10/22/22 09:30 10/22/22 09:29 Ns IVCONT 10/22/22 10:30 999 mls/hr .Q1H1M BENJAMIN Administration Ketorolac Tromethamine 30 mg 10/22/22 09:24 10/22/22 09:29 Ketorolac Tromethamine 30 Mg/Ml Vial IVPUSH 10/22/22 09:25 30 mg ONCE ONE Administration Morphine Sulfate 4 mg 10/22/22 09:11 10/22/22 09:28 Morphine Sulfate 4 Mg/Ml Cartridge IVPUSH 10/22/22 09:12 4 mg ONCE ONE Administration Protocol Ondansetron HCl 4 mg 10/22/22 09:11 10/22/22 09:29 Ondansetron Hcl 4 Mg/2 Ml Vial IVPUSH 10/22/22 09:12 4 mg ONCE ONE Administration Medical Decision Making Medical Decision Making MDM Narrative: 31 yo female with a 0.4cm stone at the left UVJ on CT 10/19 presenting to the ER after discharge yesterday with acute onset of worsening left lower quadrant pain. US showing persistent mild hydronephrosis w/ 0.6cm stone at UVJ. Dr. Sabillon to perform procedure today Differential Diagnosis Differential Diagnoses: The differential diagnosis associated with the presentation includes worsening hydronephrosis from obstructing kidney stones, pyelonpehritis, UTI, muscular pain, ureteral spasm Admission/Observation Consideration of admission/observation: Escalation of care including admission/observation considered Consult Healthcare Provider Management of the patient was discussed with: Communication Assistant Dr. Sabillon from Urology recommended Renal US Independent Interpretation I performed an independent interpretation of an: Ultrasound Interpretation: mild hydronephrosis left kidney with large stone Radiology Impression Discussion of test interpretation with radiology: I have reviewed the radiologist's reading. Radiologist Impression: ?US/US renal BI IMPRESSION: ? 1. Mild hydronephrosis caused by a 0.6 cm calculus at the level the left ureteropelvic junction similar to the previous CT scan. 2. Left lower pole intrarenal calculus versus artifact as there is no correlating calculus without size on the recent CT scan. External Record Review External record reviewed: Inpatient record and Outpatient record Prescription Management I considered prescription management with: Pain Medication and Antibiotic Critical Care Time Critical Care Time Critical Care Time: Yes Total Critical Care Time: 35 Attestation: I have personally provided critical care time exclusive of time spent on separately billable procedures. Time includes review of lab data, radiology results, prior documentation, multiple doses of IV narcotics and monitoring or hemodynamics/resp status and monitoring for potential decompensation. Intervention performed as documented. Discharge Plan Discharge Clinical Impression: Hydronephrosis with ureteral calculus Patient Disposition: Admitted As Inpatient
[2022-10-22] MEDS: Morphine Sulfate 4 MG/ML CARTRIDGE IVPUSH ×2 (09:28→14:16)
[2022-10-22] MEDS: 0.9 % Sodium Chloride 1,000 ML 999 ML IVCONT (09:29)
[2022-10-22] MEDS: Ketorolac Tromethamine 30 MG/ML VIAL IVPUSH (09:29)
[2022-10-22] MEDS: ondansetron HCL 4 MG/2 ML VIAL IVPUSH (09:29)
[2022-10-22] MEDS: HYDROmorphone HCl 1 MG/ML SYRINGE IVPUSH (10:44)
--- NOTE | 2022-10-22 10:49 | PC.NURSE ---
patient to ultrasound at this time
[2022-10-22] MEDS: Acetaminophen 325 MG TABLET 975 MG PO (11:57)
--- NOTE | 2022-10-22 16:14 | HO.ANESPROP2 ---
HPI - Anesthesia Eval Consult details Narrative: cysto retro stone PMFSH Active Problems Active Problems: All Active Problems (Updated 10/22/22 @ 12:11 by BHAVANI Sargent) Hydronephrosis with ureteral calculus (Acute) UTI (urinary tract infection) (Acute) Hydronephrosis (Acute) Urolithiasis (Acute) COVID-19 virus infection (Acute) Abdominal pain (Acute) Kidney stone (Acute) Nausea & vomiting (Acute) Syncope (Acute) Pyelonephritis (Acute) Past Medical History Medical History (Updated 10/22/22 @ 12:11 by BHAVANI Sargent) IBS (irritable bowel syndrome) Vaso vagal episode Patient : No Family History Family history of problems with anesthesia: No Surgical History Surgical History (Updated 10/20/22 @ 05:50 by Veronica Payne MD) No pertinent past surgical history History of Problems with Anesthesia: No Social History Social History Household Members: Family Housing: House Do you presently have visiting nurse or other home services: No Alcohol intake: current Alcohol intake frequency: does not drink Patient Tobacco Use Status: Never used Tobacco Use of substances other than those prescribed or required for medical reasons: Yes Substance Use Type: Marijuana Substance Use Frequency: Daily Are you DNR?: No Advance Directives: No Advance Directives Information Provided: No Advance Directives on File: No Patient : No service: No Current occupational status: unemployed Meds Allergies Allergy/AdvReac Type Severity Reaction Status Date / Time No Known Allergies Allergy Verified 10/19/22 17:31 [No Known Allergies*] Home Medications Medication Instructions Recorded Confirmed Last Taken Type apremilast 30 mg tablet (Otezla) 1 tab PO BID 10/19/22 10/20/22 10/19/22 History escitalopram oxalate 20 mg tablet 1 tab PO DAILY 10/19/22 10/20/22 10/19/22 History Exam Exam Date and Time: October 22, 2022 1614 Height,Weight and Vital Signs: Height 5 ft 8 in Weight 122.47 kg Last Vital Signs Temp 97.6 F 10/22/22 15:43 Pulse 78 10/22/22 15:43 Resp 18 10/22/22 15:43 BP 134/84 10/22/22 15:43 Pulse Ox 97 10/22/22 15:43 O2 Del Method Room Air 10/22/22 15:43 Airway Mallampati Class: II TM Dist: >3cm Neck ROM: Full Heart: ok Lungs: ok Assessment and Plan Final Anesthetic Review Family History of Problems with Anesthesia: No History of Problems with Anesthesia: No NPO: Yes ASA Class: II Final Preanesthetic Review: No Changes in Pt Med Stat, Meds/Allgs Chart Reviewed, Consent Obtained/Reviewed and Anes Risks/Benef Reviewed Patient Risk: Intermediate Procedure Risk: Low Anesthetic Plan Anesthetic Plan: GA and Agree w/ Assess. and Plan Disposition: Standard PACU
--- NOTE | 2022-10-22 16:35 | MHC.SHP ---
Pre-Procedural Eval Section A Date of Service: 10/22/22 The patient is an INPATIENT: No The History & Physical has been completed within 30 days and I have reviewed it.: Yes Section B Chief Complaint: kidney stone Allergies: Allergies Allergy/AdvReac Type Severity Reaction Status Date / Time No Known Allergies Allergy Verified 10/19/22 17:31 [No Known Allergies*] Plan Diagnosis/Plan: Unchanged I have reviewed the history and physical and performed a pertinent physical examination on my patient. No changes have occurred unless specified. Plan for Cystoscopy, Left ureteroscopy, possible laser lithotripsy, possible ureteral stent. Risks discussed included but not limited to, possible need to repeat procedure if stone is not completely fragmented, Irritative voiding symptoms, bladder spasms, urgency, blood in urine. Time Spent With Patient Time: Total time managing care of this patient today ____ minutes.
[2022-10-22] MEDS: Phenazopyridine HCL 200 MG TABLET PO (18:07)
--- NOTE | 2022-10-22 18:20 | W.PM.OPN ---
Operative Note Operative Note Date of Service: 10/22/22 Narrative: PreOperative Diagnosis:?? Left ureteral stone, hydronephrosis Post Operative Diagnosis:?? Left ureteral stone, hydronephrosis Procedure: - cystoscopy, left retrograde, left ureteroscopy stent insertion, 6 Turkmen by multi-length cm Surgeon:?Dr Damion Cramer Anesthesia:? General Indications for procedure: 31 year old female with 4 mm distal ureteral stone on CTAP, initially treated with IV hydration, the patient had persistent pain and follow up renal sono noted persistent stone with hydronephrosis. Procedure: After informed consent was verified the patient was brought to the operating room placed on the OR table in supine position.? General Anesthesia was administered per protocol.? The patient was placed in lithotomy position, prepped and draped in the usual sterile fashion.? Safety pause time-out and side of surgery confirmed.? Antibiotics confirmed. 2% lidocaine jelly 10 mL was passed transurethrally. A 22 Turkmen cystoscope was inserted transurethrally, The bladder was visualized.? Both ureteric orifices were in normal position. An open-ended ureteral catheter was passed into the left ureteral orifice and a retrograde examination was performed. There was not a filling defect noted but dilatation the ureter appreciated. A guidewire was passed through the ureteral catheter into the kidney. The balloon dilator size 12 fr by 4 cm was passed over the guide -wire the balloon was inflated to 8 mmHg and the intramural ureter was dilated for 45 seconds. The balloon was deflated and removed. After removing the balloon dilator a 2nd guidewire was then passed into the kidney to use as a safety. The cystoscope was removed, leaving both guidewires in place. One guidewire was used as the safety and was attached to the draping. The semi rigid ureteroscope was passed over one of the guidewires a small calcification was noted in the distal ureter that flushed out with the irrigation fluid. The ureteroscope, was passed up to the mid ureter, no other calcifications were seen. The ureteroscope was removed. The cystoscope was passed over the safety guidewire. A? 6 Turkmen by multi-length cm stent was placed into the ureter and renal pelvis under a combination of fluoroscopy and direct visualization. The bladder was emptied.? The rigid cystoscope was removed. ? The patient tolerated the procedure well and was brought to the recovery room in stable condition. Complications: None Drains: Ureteral stent as dictated above
--- NOTE | 2022-10-22 18:27 | HO.POSTANES ---
Post Anesthesia Evaluation Post Anesthesia Evaluation Vital Signs: Vital Signs Temp Pulse Resp BP Pulse Ox O2 Del Method 10/22/22 18:19 98.2 F 82 14 138/91 H 99 Room Air 10/22/22 18:04 85 16 119/77 99 Room Air 10/22/22 17:59 69 16 144/94 H 98 Room Air 10/22/22 17:54 82 18 137/84 94 Room Air 10/22/22 17:49 97.5 F 94 16 137/86 95 Room Air 10/22/22 15:43 97.6 F 78 18 134/84 97 Room Air 10/22/22 14:48 97.0 F 75 16 136/74 96 Room Air 10/22/22 13:20 97.1 F 68 14 130/69 95 Room Air 10/22/22 10:49 66 18 155/93 H 99 Room Air 10/22/22 10:00 98.7 F 65 18 145/85 H 98 Room Air 10/22/22 08:46 97.9 F 72 14 161/94 H 97 Room Air Anesthesia: General LMA Mental Status: Awake Pain Control: Satisfactory Nausea/Vomiting: None Hydration: Adequate Anesthesia-Related Issues: No Anes. Related Issues
== END 2022-10-22 18:26 | disposition home or self-care (01) ==
LOC: HO.ED 12:11 → HO.SSS 12:56
PROVIDERS: Urology; Emergency Provider Student in an Organized Health Care Education/Training Program; PCP Internal Medicine; Visit Provider Physician Assistant
PROC: (CPT 52351; principal; 2022-10-22 16:00)
DX: N13.2 Hydronephrosis with renal and ureteral calculous obstruction (principal); R11.0 Nausea; N39.0 Urinary tract infection, site not specified; E66.01 Morbid (severe) obesity due to excess calories; Z68.41 Body mass index [BMI] 40.0-44.9, adult; K58.9 Irritable bowel syndrome, unspecified; Z79.899 Other long term (current) drug therapy; F12.90 Cannabis use, unspecified, uncomplicated
CPT/HCPCS: 52351; 52332; 76775; 96374; 96375; 96376; 99284; 99285; C1726; C1769; C2617; J0690; J1100; J1170; J1885; J2250; J2270; J2405; J3010; Q9967

== ENCOUNTER 2022-10-25 15:24 | Observation (INO) | payer OTHER, SELFPAY ==
--- NOTE | 2022-10-25 | ECG_ITS ---
Test Reason : SYNCOPE Blood Pressure : / mmHG Vent. Rate : 075 BPM Atrial Rate : 075 BPM P-R Int : 166 ms QRS Dur : 084 ms QT Int : 400 ms P-R-T Axes : 054 044 037 degrees QTc Int : 446 ms Normal sinus rhythm Normal ECG No previous ECGs available Referred By: Ema Gomez Electronically Signed By:ALEA VOGEL
--- NOTE | ~2022-10-25 | FL_ITS ---
EXAMINATION: XR FLUOROSCOPY WITH IMAGES CLINICAL INFORMATION: Cystoscopy and left stent removal. COMPARISON: CT abdomen and pelvis noncontrast 10/25/2022. TECHNIQUE: Fluoroscopy Supervised By: Dr. Cramer. Fluoroscopy Time: under 1 min. Cumulative Dose: 1.39 mGy. DAP: 0.024 Gycm2. Images: 1. FINDINGS: Spot image left renal fossa shows no ureteral stent or visible calculus. FL/FL guidance in OR IMPRESSION: Fluoroscopy for urologic procedure.
--- NOTE | ~2022-10-25 | CT_ITS ---
EXAMINATION: CT ABDOMEN AND PELVIS WITHOUT CONTRAST CLINICAL INFORMATION: Left-sided flank pain with history of stone COMPARISON: CT abdomen pelvis 6 days ago 10/19/2022 TECHNIQUE: Multidetector volumetric imaging was performed from the superior aspect of the liver through the pubic symphysis. Sagittal and coronal reformatted images were obtained on the technologist's workstation. This CT examination was performed using dose optimization techniques as appropriate, variously including the following: *Automated exposure control *Adjustment of mA and/or kV according to patient size (this includes techniques or standardized protocols for targeted exams where dose is matched to indication/reason for exam; i.e. extremities or head) *Use of iterative reconstruction technique DLP: 919 mGy-cm FINDINGS: LUNG BASES: The visualized lung bases are unremarkable. LIVER, GALLBLADDER, AND BILIARY TREE: The liver is enlarged at 19.7 cm in cephalocaudad dimension and demonstrates decreased attenuation consistent with hepatic steatosis in size, shape, and attenuation. No focal hepatic lesion or biliary ductal dilatation is present. The gallbladder is unremarkable with no evidence of radiopaque gallstones, gallbladder wall thickening, or obvious pericholecystic inflammatory changes. PANCREAS: Unremarkable. SPLEEN: Unremarkable. ADRENAL GLANDS: Unremarkable. KIDNEYS AND URETERS: A double-J stent has been placed on the left since the prior study. There is a nonobstructing left lower pole 5 mm renal calculus. This is likely the same stone that had been in the proximal left ureter just beyond the ureteropelvic junction. No hydronephrosis is present at this time. No right nephrolithiasis. The right ureter appears normal. BLADDER: Unremarkable aside from the presence of the distal stent. GASTROINTESTINAL TRACT: The small and large bowel are unremarkable. The appendix is unremarkable. ABDOMINAL WALL: No significant hernia is appreciated. LYMPH NODES: No retroperitoneal lymphadenopathy. VASCULAR: Unremarkable. PELVIC VISCERA: The uterus and adnexa are unremarkable. OSSEOUS STRUCTURES: Unremarkable. CT/CT abdomen pelvis wo IV con IMPRESSION: 1. A double-J stent has been placed on the left since the prior study with resolution of hydronephrosis. There is a 5 mm nonobstructing left lower pole renal calculus which was most likely stone in the proximal ureter causing the obstruction as it is the same size and no stone was seen in that location only 6 days ago. 2. Incidentally noted enlarged fatty liver. Fleischner guidelines were followed.
[2022-10-25 15:54] VITALS: BP 154/94; PULSE 85; RESP 18; TEMP 36.8; O2SAT 99; BMI 41.0
--- NOTE | 2022-10-25 16:03 | ED_ITS ---
HPI - General Adult General Chief complaint: Abdominal Pain <BHAVANI Dupont - Last Filed: 11/07/22 12:03> Stated complaint: lower back pain ? kidney infection <BHAVANI Dupont Last Filed: 11/07/22 12:03> Time Seen by Provider: 10/25/22 16:48 <BHAVANI Dupont Last Filed: 11/07/22 12:03> Source: patient <BHAVANI Roy Last Filed: 10/25/22 18:53> Mode of arrival: ambulatory <BHAVANI Roy Last Filed: 10/25/22 18:53> Limitations: no limitations <BHAVANI Roy Last Filed: 10/25/22 18:53> History of Present Illness HPI narrative: 31-year-old female history of recurrent kidney stones, vasovagal syncope presenting to the emergency department for evaluation of severe left-sided flank pain, diffuse abdominal pain, lightheadedness, nausea since this morning. Patient tells me she got a stent placed by Urology on Tuesday by , reports everything seemed to be going well until today. Patient reports that today she has been feeling nauseous and like she is going to pass out. She also reports that she is having severe intermittent left-sided flank pain and diffuse abdominal pain as well as juan luis hematuria with blood clots. Also reporting urinary frequency, urgency and subjective fevers and chills. Denies chest pain, shortness of breath, headache, vision changes, dizziness, changes in bowel habits, fevers, vomiting. <BHAVANI Roy Last Filed: 10/25/22 18:53> Related Data Home medications: Home Medications Medication Instructions Recorded Confirmed apremilast 30 mg tablet (Otezla) 1 tab PO BID 10/19/22 10/28/22 escitalopram oxalate 20 mg tablet 1 tab PO DAILY 10/19/22 10/28/22 Previous Rx's Medication Instructions Recorded naproxen 375 mg tablet,delayed 375 mg PO BID #20 tabs 10/29/22 release oxycodone-acetaminophen 5 mg-325 1 tab PO Q8H PRN pain (scale score 10/29/22 mg tablet (Percocet) 7-10) #4 tabs sulfamethoxazole 800 1 tab PO BID 5 days #10 tabs 11/04/22 mg-trimethoprim 160 mg tablet (Bactrim DS) <BHAVANI Dupont - Last Filed: 11/07/22 12:03> Allergies/adverse reactions: Allergies Allergy/AdvReac Type Severity Reaction Status Date / Time No Known Allergies Allergy Verified 10/28/22 06:29 [No Known Allergies*] <BHAVANI Dupont - Last Filed: 11/07/22 12:03> Review of Systems Review of Systems: Constitutional : No Weight loss, No Fever, + Chills, + Fatigue, + Malaise ENT/Mouth : No sore throat, No Rhinorrhea Eyes: No Eye Pain, No Swelling, No Redness Cardiovascular : No Chest Pain, No SOB, No Dyspnea on Exertion, No Orthopnea, No Edema, No Palpitations Respiratory : No Cough, No Sputum, No Wheezing Gastrointestinal : + Nausea, No Vomiting, No Diarrhea, No Constipation, + abdominal Pain, No Hematochezia, No Melena Genitourinary : + Dysuria, + Urinary Frequency, No Hematuria, Musculoskeletal : No joint pain, No Myalgias, No Joint Swelling, + flank pain Skin : No Skin Lesions, No rash Neuro : No Weakness, No Numbness, No Dizziness, No Headache Psych : No Anxiety/Panic, No Depression All other systems reviewed and are negative <BHAVANI Roy - Last Filed: 10/25/22 18:53> Yes all other systems are reviewed and are negative <BHAVANI Roy - Last Filed: 10/25/22 18:53> [facility] Past Medical History Attestation statement: The following information was validated with the patient. <BHAVANI Roy - Last Filed: 10/25/22 18:53> Source: old records reviewed and nursing notes reviewed <BHAVANI Roy Last Filed: 10/25/22 18:53> Medical History: Medical History IBS (irritable bowel syndrome) Vaso vagal episode <BHAVANI Dupont Last Filed: 11/07/22 12:03> Surgical History: Surgical History No pertinent past surgical history <BHAVANI Dupont - Last Filed: 11/07/22 12:03> Social History Social History: Social History Household Members: Spouse Household Members Other:: 2 Housing: House Do you presently have visiting nurse or other home services: No Alcohol intake: current Alcohol intake frequency: does not drink Patient Tobacco Use Status: Never used Tobacco e-Cigarette/Vaping Use: Never Used Second Hand Smoke Exposure: No Substance Use Type: Marijuana Advance Directives Date on File: 10/25/22 service: No Current occupational status: unemployed <BHAVANI Dupont - Last Filed: 11/07/22 12:03> Physical Exam ED Vital Signs: Vital Signs - 24 hr 10/25/22 15:54 10/25/22 18:00 Temperature 98.3 F 98.1 F Pulse Rate 85 76 Respiratory Rate 18 16 Blood Pressure 154/94 H 129/82 Pulse Oximetry 99 98 Oxygen Delivery Method Room Air Room Air BMI result Body Mass Index 41.0 <BHAVANI Dupont - Last Filed: 11/07/22 12:03> Vital Signs - 24 hr 10/25/22 15:54 10/25/22 18:00 Temperature 98.3 F 98.1 F Pulse Rate 85 76 Respiratory Rate 18 16 Blood Pressure 154/94 H 129/82 Pulse Oximetry 99 98 Oxygen Delivery Method Room Air Room Air BMI result Body Mass Index 41.0 Vital signs stable <BHAVANI Roy - Last Filed: 10/25/22 18:53> Appearance: Alert.? Oriented X3.? No acute distress.? Head: Normocephalic, atraumatic, no step-offs or deformities Eyes: Pupils equal, round and reactive to light.? Neck: Normal inspection.? Neck supple.? CVS: Normal heart rate and rhythm.? Pulses normal.? Respiratory: No respiratory distress.? Breath sounds normal.? Abdomen: Soft and diffusely tender. Normoactive bowel sounds.? Skin: Skin warm and dry.? Normal skin color.? Normal skin turgor.? Extremities: No lower extremity edema.? No calf ttp. 5/5 strength to bilateral upper and lower extremities Back: Left-sided CVA tenderness. No CVA tenderness on the right. No midline back pain. Neuro: Oriented X 3.? No motor deficit.? No sensory deficit. CN 2-12 intact <BHAVANI Roy - Last Filed: 10/25/22 18:53> Course Course Course Narrative: RMNeo: 29 old female status post stent placed for obstructive kidney stones presents to ED for continuous dysuria, some hematuria, and flank pain. Patient wanted to make sure there is no infection in her kidney or in a stent. Patient denies any fever or chills. Vital signs stable. Negative CVA or flanks. Labs ordered. <BHAVANI Dupont - Last Filed: 11/07/22 12:03> Reevaluation(s) Reevaluation #1: CBC with slight leukocytosis 11.2. Chemistry with no acute electrolyte abnormalities requiring intervention. Negative lactic acid. Urine grossly infected, being covered with Levaquin to cover for pyelonephritis. CT of abdomen and pelvis with no acute findings. I did discuss this case with Urology who recommends hospital admission, antibiotics . They will follow in the morning. <BHAVANI Roy - Last Filed: 10/25/22 18:53> Time: 18:51 <BHAVANI Roy - Last Filed: 10/25/22 18:53> Medications Administered Discontinued Medications Generic Name Dose Route Start Last Admin Trade Name Jhoanq PRN Reason Stop Dose Admin Escitalopram Oxalate 20 mg 10/27/22 09:00 10/27/22 09:33 Escitalopram Oxalate 20 Mg Tablet PO 20 mg DAILY BENJAMIN Administration Levofloxacin 750 mg in 150 mls @ 100 mls/hr 10/25/22 17:47 10/25/22 21:52 Levaquin IV 10/25/22 19:16 Infused ONCE ONE Infusion Lactated Ringer's 1,000 mls @ 100 mls/hr 10/25/22 18:45 10/27/22 01:30 Lr IVCONT 100 mls/hr .Q10H BENJAMIN Administration Levofloxacin 500 mg in 100 mls @ 100 mls/hr 10/26/22 11:23 10/26/22 13:19 Levaquin IV 10/26/22 12:22 Not Given PREOP ONE Ketorolac Tromethamine 30 mg 10/25/22 19:56 10/26/22 18:12 Ketorolac Tromethamine 30 Mg/Ml Vial IVPUSH 30 mg Q6H PRN Administration Pain, Moderate (Pain Scale 4-6 Ketorolac Tromethamine 15 mg 10/26/22 12:05 10/26/22 13:20 Ketorolac Tromethamine 30 Mg/Ml Vial IVPUSH 10/26/22 12:06 Not Given ONCE ONE Morphine Sulfate 4 mg 10/25/22 17:53 10/25/22 18:22 Morphine Sulfate 4 Mg/Ml Cartridge IVPUSH 10/25/22 17:54 Not Given ONCE ONE Protocol Morphine Sulfate 1 mg 10/25/22 18:44 10/27/22 04:31 Morphine Sulfate 2 Mg/Ml Cartridge IVPUSH 1 mg Q4H PRN Administration abd pain Protocol Morphine Sulfate 4 mg 10/25/22 20:15 10/25/22 20:18 Morphine Sulfate 4 Mg/Ml Cartridge IVPUSH 10/25/22 20:16 4 mg ONCE ONE Administration Protocol Polyethylene Glycol 17 gm 10/26/22 20:20 10/26/22 21:24 Polyethylene Glycol 3350 17 Gm Powd.Pack PO 10/26/22 20:21 Not Given ONCE ONE Sodium Chloride 3 ml 10/26/22 00:00 10/27/22 07:36 0.9 % Sodium Chloride Flush 3 Ml Syringe IVFLUSH Not Given QSHIFT BENJAMIN Tamsulosin HCl 0.4 mg 10/26/22 09:00 10/27/22 07:36 Tamsulosin Hcl 0.4 Mg Capsule PO 0.4 mg DAILY BENJAMIN Administration <BHAVANI Dupont - Last Filed: 11/07/22 12:03> Medications Administered Discontinued Medications Generic Name Dose Route Start Last Admin Trade Name Freq PRN Reason Stop Dose Admin Escitalopram Oxalate 20 mg 10/27/22 09:00 10/27/22 09:33 Escitalopram Oxalate 20 Mg Tablet PO 20 mg DAILY BENJAMIN Administration Levofloxacin 750 mg in 150 mls @ 100 mls/hr 10/25/22 17:47 10/25/22 21:52 Levaquin IV 10/25/22 19:16 Infused ONCE ONE Infusion Lactated Ringer's 1,000 mls @ 100 mls/hr 10/25/22 18:45 10/27/22 01:30 Lr IVCONT 100 mls/hr .Q10H BENJAMIN Administration Levofloxacin 500 mg in 100 mls @ 100 mls/hr 10/26/22 11:23 10/26/22 13:19 Levaquin IV 10/26/22 12:22 Not Given PREOP ONE Ketorolac Tromethamine 30 mg 10/25/22 19:56 10/26/22 18:12 Ketorolac Tromethamine 30 Mg/Ml Vial IVPUSH 30 mg Q6H PRN Administration Pain, Moderate (Pain Scale 4-6 Ketorolac Tromethamine 15 mg 10/26/22 12:05 10/26/22 13:20 Ketorolac Tromethamine 30 Mg/Ml Vial IVPUSH 10/26/22 12:06 Not Given ONCE ONE Morphine Sulfate 4 mg 10/25/22 17:53 10/25/22 18:22 Morphine Sulfate 4 Mg/Ml Cartridge IVPUSH 10/25/22 17:54 Not Given ONCE ONE Protocol Morphine Sulfate 1 mg 10/25/22 18:44 10/27/22 04:31 Morphine Sulfate 2 Mg/Ml Cartridge IVPUSH 1 mg Q4H PRN Administration abd pain Protocol Morphine Sulfate 4 mg 10/25/22 20:15 10/25/22 20:18 Morphine Sulfate 4 Mg/Ml Cartridge IVPUSH 10/25/22 20:16 4 mg ONCE ONE Administration Protocol Polyethylene Glycol 17 gm 10/26/22 20:20 10/26/22 21:24 Polyethylene Glycol 3350 17 Gm Powd.Pack PO 10/26/22 20:21 Not Given ONCE ONE Sodium Chloride 3 ml 10/26/22 00:00 10/27/22 07:36 0.9 % Sodium Chloride Flush 3 Ml Syringe IVFLUSH Not Given QSHIFT BENJAMIN Tamsulosin HCl 0.4 mg 10/26/22 09:00 10/27/22 07:36 Tamsulosin Hcl 0.4 Mg Capsule PO 0.4 mg DAILY BENJAMIN Administration <BHAVANI Roy - Last Filed: 10/25/22 18:53> Medical Decision Making Medical Decision Making [facility] Narrative: 3330 31-year-old female presents for evaluation of urinary frequency, urgency, hematuria, severe his left-sided flank pain status post renal stent placed on Tuesday. Reports associated fatigue, chills, fatigue and malaise. Physical exam significant for diffuse abdominal tenderness and left-sided CVA tenderness. Hemodynamically stable. Concerns for possible UTI.vs pyelonephritis vs postoperative complications. W ill rule out new kidney stones. No signs of acute abdomen. Will rule out . Plan labs, imaging, urine <BHAVANI Roy - Last Filed: 10/25/22 18:53> Differential Diagnosis Differential Diagnoses: The differential diagnosis associated with the presentation includes <BHAVANI Roy - Last Filed: 10/25/22 18:53> Concerns for possible UTI.vs pyelonephritis vs postoperative complications. Will rule out new kidney stones. No signs of acute abdomen. Will rule out . <BHAVANI Roy - Last Filed: 10/25/22 18:53> Admission/Observation Consideration of admission/observation: Escalation of care including admission/observation considered <BHAVANI Roy - Last Filed: 10/25/22 18:53> Consult Healthcare Provider Management of the patient was discussed with: Accounting Software Specialist (Dr. [facility]) <BHAVANI Roy - Last Filed: 10/25/22 18:53> Lab Data MDM Lab Attestation statement: I reviewed the patient's lab results. <BHAVANI Roy - Last Filed: 10/25/22 18:53> Result Diagrams: 10/25/22 16:30 10/25/22 16:30 <BHAVANI Dupont - Last Filed: 11/07/22 12:03> Labs: Lab Results 10/25/22 10/25/22 10/25/22 Range/Units 16:30 16:30 16:30 WBC 11.2 H (4.8-10.8) X10*3/uL RBC 5.11 (4.20-5.50) X10*6/uL Hgb 14.0 (12.0-16.0) g/dl Hct 43.3 (37.0-47.0) % MCV 84.7 (80.0-98.0) fL MCH 27.4 (27.0-33.0) pg MCHC 32.3 (31.0-35.0) g/dl RDW 13.4 (11.0-16.0) % Plt Count 282 (160-400) X10*3/uL MPV 10.5 (9.4-12.3) fL Immature Gran % (Auto) 0.6 H (0.0-0.4) % Neut % (Auto) 62.3 (45-73) % Lymph % (Auto) 26.5 (20-40) % [place] % (Auto) 9.6 (2-11) % Eos % (Auto) 0.6 (0-4) % Baso % (Auto) 0.4 (0-2) % Lymph # (Auto) 3.0 (1.2-4.9) X10*3/uL [place] # (Auto) 1.1 (0.1-1.2) X10*3/uL Eos # (Auto) 0.1 (0.0-0.4) X10*3/uL Baso # (Auto) 0.1 (0.0-0.2) X10*3/uL Abs Immat Gran (auto) 0.07 H (0.00-0.03) X10*3/uL Absolute Neuts (auto) 7.0 (2.0-8.3) x10*3/uL Absolute Nucleated RBC 0.000 (0.0-0.012) X10*3/uL Nucleated RBC % (auto) 0.0 (0.0-0.2) /100WBC Sodium 139 (135-145) mmol/L Potassium 4.7 D (3.3-5.1) mmol/L Chloride 105 (96-108) mmol/L Carbon Dioxide 26 (22-29) mmol/L Anion Gap 13 (12-20) BUN 11 (9-16) mg/dL Creatinine 0.76 (0.5-1.4) mg/dL Estim Creat Clear Calc 146.5 Estimated GFR > 60 Random Glucose 92 (60-115) mg/dL Lactic Acid (0.5-2.0) mmol/L Calcium 9.1 (8.4-10.2) mg/dL Total Bilirubin 0.3 (0.0-1.0) mg/dL AST 12 (5-31) U/L ALT 11 (0-31) U/L Alkaline Phosphatase 93 (39-117) U/L Total Protein 6.6 (6.5-8.0) g/dL Albumin 4.0 (3.5-5.0) g/dL Urine Color ORANGE Urine Appearance Cloudy Urine pH 6.5 (5.0-9.0) Ur Specific [place] 1.015 (1.005-1.025) Urine Protein 300 (3+) H (Neg-Trace) mg/dL Urine Glucose (UA) 250 H (Negative) mg/dL Urine Ketones 15 (Negative) mg/dL Urine Blood Large (3+) H (Negative) Urine Nitrite Positive H (Negative) Ur Leukocyte Esterase Moderate (2+) H (Negative) Urine RBC >20 H (0-2) /HPF Urine WBC 0-5 (0-5) /HPF Ur Squamous Epith Cells 0-2 (0-2) /HPF Urine Bacteria 1+ (None Seen) Hyaline Casts 0-2 (0-2) /LPF Urine Test (NEGATIVE) 10/25/22 10/25/22 Range/Units 16:30 18:17 WBC (4.8-10.8) X10*3/uL RBC (4.20-5.50) X10*6/uL Hgb (12.0-16.0) g/dl Hct (37.0-47.0) % MCV (80.0-98.0) fL MCH (27.0-33.0) pg MCHC (31.0-35.0) g/dl RDW (11.0-16.0) % Plt Count (160-400) X10*3/uL MPV (9.4-12.3) fL Immature Gran % (Auto) (0.0-0.4) % Neut % (Auto) (45-73) % Lymph % (Auto) (20-40) % [place] % (Auto) (2-11) % Eos % (Auto) (0-4) % Baso % (Auto) (0-2) % Lymph # (Auto) (1.2-4.9) X10*3/uL [place] # (Auto) (0.1-1.2) X10*3/uL Eos # (Auto) (0.0-0.4) X10*3/uL Baso # (Auto) (0.0-0.2) X10*3/uL Abs Immat Gran (auto) (0.00-0.03) X10*3/uL Absolute Neuts (auto) (2.0-8.3) x10*3/uL Absolute Nucleated RBC (0.0-0.012) X10*3/uL Nucleated RBC % (auto) (0.0-0.2) /100WBC Sodium (135-145) mmol/L Potassium (3.3-5.1) mmol/L Chloride (96-108) mmol/L Carbon Dioxide (22-29) mmol/L Anion Gap (12-20) BUN (9-16) mg/dL Creatinine (0.5-1.4) mg/dL Estim Creat Clear Calc Estimated GFR Random Glucose (60-115) mg/dL Lactic Acid 1.2 (0.5-2.0) mmol/L Calcium (8.4-10.2) mg/dL Total Bilirubin (0.0-1.0) mg/dL AST (5-31) U/L ALT (0-31) U/L Alkaline Phosphatase (39-117) U/L Total Protein (6.5-8.0) g/dL Albumin (3.5-5.0) g/dL Urine Color Urine Appearance Urine pH (5.0-9.0) Ur Specific [place] (1.005-1.025) Urine Protein (Neg-Trace) mg/dL Urine Glucose (UA) (Negative) mg/dL Urine Ketones (Negative) mg/dL Urine Blood (Negative) Urine Nitrite (Negative) Ur Leukocyte Esterase (Negative) Urine RBC (0-2) /HPF Urine WBC (0-5) /HPF Ur Squamous Epith Cells (0-2) /HPF Urine Bacteria (None Seen) Hyaline Casts (0-2) /LPF Urine Test NEGATIVE (NEGATIVE) <HBAVANI Dupont - Last Filed: 11/07/22 12:03> Lab Results 10/25/22 10/25/22 10/25/22 Range/Units 16:30 16:30 16:30 WBC 11.2 H (4.8-10.8) X10*3/uL RBC 5.11 (4.20-5.50) X10*6/uL Hgb 14.0 (12.0-16.0) g/dl Hct 43.3 (37.0-47.0) % MCV 84.7 (80.0-98.0) fL MCH 27.4 (27.0-33.0) pg MCHC 32.3 (31.0-35.0) g/dl RDW 13.4 (11.0-16.0) % Plt Count 282 (160-400) X10*3/uL MPV 10.5 (9.4-12.3) fL Immature Gran % (Auto) 0.6 H (0.0-0.4) % Neut % (Auto) 62.3 (45-73) % Lymph % (Auto) 26.5 (20-40) % [place] % (Auto) 9.6 (2-11) % Eos % (Auto) 0.6 (0-4) % Baso % (Auto) 0.4 (0-2) % Lymph # (Auto) 3.0 (1.2-4.9) X10*3/uL [place] # (Auto) 1.1 (0.1-1.2) X10*3/uL Eos # (Auto) 0.1 (0.0-0.4) X10*3/uL Baso # (Auto) 0.1 (0.0-0.2) X10*3/uL Abs Immat Gran (auto) 0.07 H (0.00-0.03) X10*3/uL Absolute Neuts (auto) 7.0 (2.0-8.3) x10*3/uL Absolute Nucleated RBC 0.000 (0.0-0.012) X10*3/uL Nucleated RBC % (auto) 0.0 (0.0-0.2) /100WBC Sodium 139 (135-145) mmol/L Potassium 4.7 D (3.3-5.1) mmol/L Chloride 105 (96-108) mmol/L Carbon Dioxide 26 (22-29) mmol/L Anion Gap 13 (12-20) BUN 11 (9-16) mg/dL Creatinine 0.76 (0.5-1.4) mg/dL Estim Creat Clear Calc 146.5 Estimated GFR > 60 Random Glucose 92 (60-115) mg/dL Lactic Acid (0.5-2.0) mmol/L Calcium 9.1 (8.4-10.2) mg/dL Total Bilirubin 0.3 (0.0-1.0) mg/dL AST 12 (5-31) U/L ALT 11 (0-31) U/L Alkaline Phosphatase 93 (39-117) U/L Total Protein 6.6 (6.5-8.0) g/dL Albumin 4.0 (3.5-5.0) g/dL Urine Color ORANGE Urine Appearance Cloudy Urine pH 6.5 (5.0-9.0) Ur Specific [place] 1.015 (1.005-1.025) Urine Protein 300 (3+) H (Neg-Trace) mg/dL Urine Glucose (UA) 250 H (Negative) mg/dL Urine Ketones 15 (Negative) mg/dL Urine Blood Large (3+) H (Negative) Urine Nitrite Positive H (Negative) Ur Leukocyte Esterase Moderate (2+) H (Negative) Urine RBC >20 H (0-2) /HPF Urine WBC 0-5 (0-5) /HPF Ur Squamous Epith Cells 0-2 (0-2) /HPF Urine Bacteria 1+ (None Seen) Hyaline Casts 0-2 (0-2) /LPF Urine Test (NEGATIVE) 10/25/22 10/25/22 Range/Units 16:30 18:17 WBC (4.8-10.8) X10*3/uL RBC (4.20-5.50) X10*6/uL Hgb (12.0-16.0) g/dl Hct (37.0-47.0) % MCV (80.0-98.0) fL MCH (27.0-33.0) pg MCHC (31.0-35.0) g/dl RDW (11.0-16.0) % Plt Count (160-400) X10*3/uL MPV (9.4-12.3) fL Immature Gran % (Auto) (0.0-0.4) % Neut % (Auto) (45-73) % Lymph % (Auto) (20-40) % [place] % (Auto) (2-11) % Eos % (Auto) (0-4) % Baso % (Auto) (0-2) % Lymph # (Auto) (1.2-4.9) X10*3/uL [place] # (Auto) (0.1-1.2) X10*3/uL Eos # (Auto) (0.0-0.4) X10*3/uL Baso # (Auto) (0.0-0.2) X10*3/uL Abs Immat Gran (auto) (0.00-0.03) X10*3/uL Absolute Neuts (auto) (2.0-8.3) x10*3/uL Absolute Nucleated RBC (0.0-0.012) X10*3/uL Nucleated RBC % (auto) (0.0-0.2) /100WBC Sodium (135-145) mmol/L Potassium (3.3-5.1) mmol/L Chloride (96-108) mmol/L Carbon Dioxide (22-29) mmol/L Anion Gap (12-20) BUN (9-16) mg/dL Creatinine (0.5-1.4) mg/dL Estim Creat Clear Calc Estimated GFR Random Glucose (60-115) mg/dL Lactic Acid 1.2 (0.5-2.0) mmol/L Calcium (8.4-10.2) mg/dL Total Bilirubin (0.0-1.0) mg/dL AST (5-31) U/L ALT (0-31) U/L Alkaline Phosphatase (39-117) U/L Total Protein (6.5-8.0) g/dL Albumin (3.5-5.0) g/dL Urine Color Urine Appearance Urine pH (5.0-9.0) Ur Specific [place] (1.005-1.025) Urine Protein (Neg-Trace) mg/dL Urine Glucose (UA) (Negative) mg/dL Urine Ketones (Negative) mg/dL Urine Blood (Negative) Urine Nitrite (Negative) Ur Leukocyte Esterase (Negative) Urine RBC (0-2) /HPF Urine WBC (0-5) /HPF Ur Squamous Epith Cells (0-2) /HPF Urine Bacteria (None Seen) Hyaline Casts (0-2) /LPF Urine Test NEGATIVE (NEGATIVE) <BHAVANI Roy - Last Filed: 10/25/22 18:53> Independent Interpretation I performed an independent interpretation of an: CT Scan (CT/CT abdomen pelvis wo IV con IMPRESSION: 1. A double-J stent has been placed on the left since the prior study with resolution of hydronephrosis. There is a 5 mm nonobstructing left lower pole renal calculus which was most likely stone in the proximal ureter causing the obstruction as it is the s) <BHAVANI Roy - Last Filed: 10/25/22 18:53> Radiology Impression Discussion of test interpretation with radiology: I have reviewed the radiologist's reading. <BHAVANI Roy - Last Filed: 10/25/22 18:53> Core Measures AMI core measures followed: Yes <BHAVANI Roy - Last Filed: 10/25/22 18:53> Measure exclusions: not indicated <BHAVANI Roy - Last Filed: 10/25/22 18:53> Critical Care Time Critical Care Time Critical Care Time: Yes <BHAVANI Roy - Last Filed: 10/25/22 18:53> Total Critical Care Time: 35 <BHAVANI Roy - Last Filed: 10/25/22 18:53> Attestation: Insert critical care to <BHAVANI Roy - Last Filed: 10/25/22 18:53> Discharge Plan Discharge Clinical Impression: Pyelonephritis <BHAVANI Dupont - Last Filed: 11/07/22 12:03> Patient Disposition: Still a Patient <BHAVANI Dupont - Last Filed: 11/07/22 12:03> Interventions: Admission Worksheet (ED) Last Done: 10/25/22 21:25 <BHAVANI Dupont - Last Filed: 11/07/22 12:03> Discharge Date/Time: 10/25/22 21:26 <BHAVANI Dupont - Last Filed: 11/07/22 12:03>
[2022-10-25 16:46] LABS: MANUAL DIFF FLAG NO
[2022-10-25 16:53] LABS: Basophils Absolute Auto 0.1 X10*3/uL (0.0-0.2); Basophils Percent Auto 0.4 % (0-2); Eosinophils Absolute Auto 0.1 X10*3/uL (0.0-0.4); Eosinophils Percent Auto 0.6 % (0-4); Hematocrit 43.3 % (37.0-47.0); Imm Gran Abs Auto 0.07 X10*3/uL (0.00-0.03); Imm Gran Pct Auto 0.6 % (0.0-0.4); Lymphocytes Percent Auto 26.5 % (20-40); Mean Corpuscular HGB Conc 32.3 g/dl (31.0-35.0); Mean Corpuscular Hemoglobin 27.4 pg (27.0-33.0); Mean Corpuscular Volume 84.7 fL (80.0-98.0); Mean Platelet Volume 10.5 fL (9.4-12.3); Monocytes Absolute Auto 1.1 X10*3/uL (0.1-1.2); Monocytes Percent Auto 9.6 % (2-11); Neutrophils Percent Auto 62.3 % (45-73); Platelet Count 282 X10*3/uL (160-400); Red Blood Count 5.11 X10*6/uL (4.20-5.50); Red Cell Distribution Width 13.4 % (11.0-16.0); White Blood Count 11.2 X10*3/uL (4.8-10.8)
[2022-10-25 17:10] LABS: Alanine Aminotransferase 11 U/L (0-31); Alkaline Phosphatase 93 U/L (39-117); Anion Gap 13 (12-20); Aspartate Amino Transferase 12 U/L (5-31); Bilirubin Total 0.3 mg/dL (0.0-1.0); Blood Urea Nitrogen 11 mg/dL (9-16); Calcium 9.1 mg/dL (8.4-10.2); Carbon Dioxide 26 mmol/L (22-29); Chloride 105 mmol/L (96-108); Creatinine Clr Calc Pharmacy 146.5; Estimated Glomerular Filt Rate > 60; Glucose Random 92 mg/dL (60-115); Potassium 4.7 mmol/L (3.3-5.1); Sodium 139 mmol/L (135-145); Total Protein 6.6 g/dL (6.5-8.0)
[2022-10-25 17:16] LABS: Appearance Urine Cloudy; Color Urine ORANGE; Glucose Urine UA 250 mg/dL (Negative); Leukocyte Esterase Urine Moderate (2+) (Negative); Nitrite Urine Positive (Negative); PH 6.5 (5.0-9.0); Specific Gravity - Urine 1.015 (1.005-1.025); UMIC TRIGGER UACC YES; Urine Blood Large (3+) (Negative); Urine Ketones 15 mg/dL (Negative); Urine Protein 300 (3+) mg/dL (Neg-Trace)
[2022-10-25 17:31] LABS: UPreg QC Valid YES; Urine Pregnancy NEGATIVE (NEGATIVE)
[2022-10-25 17:50] LABS: UACC Culture Trigger YES; WBC Urine 0-5 /HPF (0-5)
[2022-10-25 17:51] LABS: Bacteria Urine 1+ (None Seen); Hyaline Casts Urine 0-2 /LPF (0-2); RBC Urine >20 /HPF (0-2); Squamous Epithelial Cell Urine 0-2 /HPF (0-2)
[2022-10-25 18:00] VITALS: BP 129/82; PULSE 76; RESP 16; TEMP 36.7; O2SAT 98
[2022-10-25] MEDS: levoFLOXacin/D5W 750 MG/150 ML PIGGYBACK 100 MG IV (18:22)
[2022-10-25 18:38] LABS: Lactic Acid 1.2 mmol/L (0.5-2.0)
--- NOTE | 2022-10-25 18:43 | MHC.EDTECH ---
pt 1800 rounding done ,vitals sign taken .
[2022-10-25 18:44] VITALS: BP 152/89; PULSE 85; RESP 16; TEMP 37.1; O2SAT 98
--- NOTE | 2022-10-25 18:54 | PM.IMHP ---
History of Present Illness Date of Service: 10/25/22 Attending physician on admission: Ema Gomez Chief Complaint: uti/nephrolithasis ?31-year-old female history of recurrent kidney stones: Patient was recently here for urolithiasis10/21: Which was treated with hydration, pain medication and subsequently her pain significantly improved and seen by Urology and thought to be passed her stone so sen home with flomax and naprosyn-for now coming back with again significant pain in the left flank area and possible nearsyncope presenting to the emergency department for evaluation of severe left-sided flank pain, diffuse abdominal pain, lightheadedness, nausea since this morning.? Patient tells me she got a stent placed by Urology on Tuesday by , reports everything seemed to be going well until today.? Patient reports that today she has been feeling nauseous and like she is going to pass out.? She also reports that she is having severe intermittent left-sided flank pain and diffuse abdominal pain as well as juan luis hematuria with blood clots. Denies any new complaint of chest pain or shortness of breath or abdominal pain orvomiting or cough Denies any weakness or numbness. Lab imaging reviewed: cbc fine bmp fine ct abd: CT/CT abdomen pelvis wo IV con IMPRESSION: 1.? A double-J stent has been placed on the left since the prior study with resolution of hydronephrosis. There is a 5 mm nonobstructing left lower pole renal calculus which was most likely stone in the proximal ureter causing the obstruction as it is the same size and no stone was seen in that location only 6 days ago. 2.? Incidentally noted enlarged fatty liver. ? Fleischner guidelines were followed. Review of Systems Review of Systems: as above. [facility] Medical History IBS (irritable bowel syndrome) Vaso vagal episode Surgical History No pertinent past surgical history Social History Household Members: Family Housing: House Do you presently have visiting nurse or other home services: No Alcohol intake: current Alcohol intake frequency: does not drink Patient Tobacco Use Status: Never used Tobacco Substance Use Type: Marijuana Advance Directives: No Advance Directives Information Provided: No service: No Current occupational status: unemployed Meds Allergies Allergy/AdvReac Type Severity Reaction Status Date / Time No Known Allergies Allergy Verified 10/19/22 17:31 [No Known Allergies*] Active Medications: Current Medications Levofloxacin (Levaquin) 750 mg in 150 mls @ 100 mls/hr IV ONCE ONE Stop: 10/25/22 19:16 Last Admin: 10/25/22 18:22 Dose: 100 mls/hr Lactated Ringer's (Lr) 1,000 mls @ 100 mls/hr IVCONT .Q10H [facility] Morphine Sulfate (Morphine Sulfate 2 Mg/Ml Cartridge) 1 mg IVPUSH Q4H PRN; Protocol PRN Reason: abd pain Pharmacy Consult (Consult Rx Perform Med Rec) 1 each MISCELLANE ONCE PRN PRN Reason: Consult order Sodium Chloride (0.9 % Sodium Chloride Flush 3 Ml Syringe) 3 ml IVFLUSH QSHIFT [facility] Tamsulosin HCl (Tamsulosin Hcl 0.4 Mg Capsule) 0.4 mg PO DAILY [facility] Home Medications Medication Instructions Recorded Confirmed Last Taken Type apremilast 30 mg tablet (Otezla) 1 tab PO BID 10/19/22 10/25/22 10/25/22 History escitalopram oxalate 20 mg tablet 1 tab PO DAILY 10/19/22 10/25/22 10/25/22 History Physical Exam Vital Signs and Narrative: Vital Signs: Last Vital Signs Temp 98.1 F 10/25/22 18:00 Pulse 76 10/25/22 18:00 Resp 16 10/25/22 18:00 BP 129/82 10/25/22 18:00 Pulse Ox 98 10/25/22 18:00 O2 Del Method Room Air 10/25/22 18:00 BMI result Body Mass Index 41.0 Appearance: Alert.? Oriented X3.? Eyes: Pupils equal, round and reactive to light.? Sclera nonicteric.? ENT: Pharynx normal.? Moist mucous membranes. cvs: rrr, [id number] res: clear to auscultation ,no rhonchii or wheezing abd: no rebound or guarding ,left flank pain, bs present. ext pulses present , no cyanosis . neuro: axo3 , nonfocal. Results Labs 10/25/22 16:30 10/25/22 16:30 Labs: Laboratory Results - last 24 hr 10/25/22 10/25/22 10/25/22 16:30 16:30 16:30 MCV 84.7 MCH 27.4 MCHC 32.3 RDW 13.4 Plt Count 282 MPV 10.5 Immature Gran % (Auto) 0.6 H Neut % (Auto) 62.3 Lymph % (Auto) 26.5 [place] % (Auto) 9.6 Eos % (Auto) 0.6 Baso % (Auto) 0.4 Lymph # (Auto) 3.0 [place] # (Auto) 1.1 Eos # (Auto) 0.1 Baso # (Auto) 0.1 Abs Immat Gran (auto) 0.07 H Absolute Neuts (auto) 7.0 Absolute Nucleated RBC 0.000 Nucleated RBC % (auto) 0.0 Anion Gap 13 Estim Creat Clear Calc 146.5 Estimated GFR > 60 Random Glucose 92 Lactic Acid Calcium 9.1 Total Bilirubin 0.3 AST 12 ALT 11 Alkaline Phosphatase 93 Total Protein 6.6 Albumin 4.0 Urine Color ORANGE Urine Appearance Cloudy Urine pH 6.5 Ur Specific [place] 1.015 Urine Protein 300 (3+) H Urine Glucose (UA) 250 H Urine Ketones 15 Urine Blood Large (3+) H Urine Nitrite Positive H Ur Leukocyte Esterase Moderate (2+) H Urine RBC >20 H Urine WBC 0-5 Ur Squamous Epith Cells 0-2 Urine Bacteria 1+ Hyaline Casts 0-2 Urine Test 10/25/22 10/25/22 16:30 18:17 MCV MCH MCHC RDW Plt Count MPV Immature Gran % (Auto) Neut % (Auto) Lymph % (Auto) [place] % (Auto) Eos % (Auto) Baso % (Auto) Lymph # (Auto) [place] # (Auto) Eos # (Auto) Baso # (Auto) Abs Immat Gran (auto) Absolute Neuts (auto) Absolute Nucleated RBC Nucleated RBC % (auto) Anion Gap Estim Creat Clear Calc Estimated GFR Random Glucose Lactic Acid 1.2 Calcium Total Bilirubin AST ALT Alkaline Phosphatase Total Protein Albumin Urine Color Urine Appearance Urine pH Ur Specific [place] Urine Protein Urine Glucose (UA) Urine Ketones Urine Blood Urine Nitrite Ur Leukocyte Esterase Urine RBC Urine WBC Ur Squamous Epith Cells Urine Bacteria Hyaline Casts Urine Test NEGATIVE Imaging Radiologist's Impressions: Impressions Abdomen/Pelvis CT 10/25/22 17:47 IMPRESSION: 1. A double-J stent has been placed on the left since the prior study with resolution of hydronephrosis. There is a 5 mm nonobstructing left lower pole renal calculus which was most likely stone in the proximal ureter causing the obstruction as it is the same size and no stone was seen in that location only 6 days ago. 2. Incidentally noted enlarged fatty liver. Fleischner guidelines were followed. Assessment and Plan (1) UTI (urinary tract infection): Status: Acute Plan 31-year-old was past medical history for vasovagal syncope as well as IBS presents to the hospital with abdominal pain found to have hydronephrosis with obstructing stone as well as UTI nephrolithasis :nonobstructing left lower pole renal calculus?. - will treat with IV fluids, analgesics, - given the UTI patient will also receive IV antibiotics - follow cultures - Flomax - urology consulted ?acute UTI - has urinary frequency, positive UA - in the setting of n will treat with IV antibiotics - follow cultures ?morbid obesity - continue Otezla near syncope: possible due to pain/dehydration moniter on tele ekg added DVT prophylaxis:? Early ambulation, SCDs, for possible intervention for removal of the kidney stone Patient will need IV antibiotics/IV fluids,possible urology procedure if needed. Above management discussed with the patient in detail length. We Time Spent With Patient Time: Total time managing care of this patient today ____ minutes. Quality Stroke Does the patient have a stroke diagnosis?: No VTE Prior VTE?: No VTE Risk Level:: Medical - moderate - high VTE Device Contraindication: N/A - Device Ordered VTE Drug Contraindication: N/A - Med Ordered
--- NOTE | 2022-10-25 19:01 | PHA.MEDREC ---
Pharmacy Consult ? Medication Reconciliation Pharmacy has completed the medication reconciliation. Patient knew all medications
[2022-10-25 19:39] VITALS: BP 152/98; PULSE 86; RESP 17; TEMP 36.8; O2SAT 98
--- NOTE | 2022-10-25 19:40 | MHC.EDTECH ---
dr pierce said patient could eat food before mid night ,pt was given turkey sandwich and dariela brody ,covid swab collected and sent to lab ,vitals sign taken .
[2022-10-25 20:08] LABS: COVID-19 Test Negative (Negative); IDNOW Serial# BCCEAD1C
[2022-10-25] MEDS: Lactated Ringers 1,000 ML 100 ML IVCONT (20:16)
[2022-10-25] MEDS: Morphine Sulfate 4 MG/ML CARTRIDGE IVPUSH (20:18)
--- NOTE | 2022-10-25 20:24 | PC.NURSE ---
pt a&o, no sob or chest pain, medicated per mar, awaiting covid result and pt will be transferred to accepting unit. Will continue to monitor.
[2022-10-25 20:30] LABS: COVID-19 Test Negative (Negative); IDNOW Serial# BCCEAD1C
--- NOTE | 2022-10-25 20:33 | PC.NURSE ---
report given to Latasha, pt will be transformed to receiving unit.
--- NOTE | 2022-10-25 20:55 | MHC.CM.PN ---
ELIZABETH 10/25. Met with patient assigned to observation. A&Ox4. Lives with . Uses CPAP. No services. Pfizer x3 (11/24/20, 12/16/20) and Moderna 07/28/21.No HCP on file. HCP reviewed, completed and signed. Copies given. Uploaded into [facility] and [facility]. HCP/ Hosea Lisa ([phone]). Pt was admitted on 10/19-10/21 with UTI, kidney stone- had stent placed. Returned with worsening pain. D/C plan: Home without services. will transport. CM following for any discharge needs.
--- NOTE | 2022-10-25 21:23 | PC.NURSE ---
Adjust pt Iv, Iv intact and fluid running upon transport. Report given to receiving unit.
[2022-10-25 21:25] VITALS: BMI 40.1
[2022-10-25 21:29] VITALS: BP 155/84; PULSE 78; RESP 16; TEMP 36.6; O2SAT 97
[2022-10-25] MEDS: 0.9 % Sodium Chloride Flush 3 ML SYRINGE IVFLUSH (21:53)
[2022-10-25] MEDS: Ketorolac Tromethamine 30 MG/ML VIAL IVPUSH (21:56)
[2022-10-26] VITALS (7 sets, daily range): BP systolic 120–162; BP diastolic 70–95; PULSE 69–99; RESP 16–20; TEMP 36.2–37.2; O2SAT 94–99
[2022-10-26] MEDS: Morphine Sulfate 2 MG/ML CARTRIDGE 1 MG IVPUSH ×2 (03:33→07:42)
[2022-10-26] MEDS: Lactated Ringers 1,000 ML 100 ML IVCONT ×2 (05:36→16:22)
[2022-10-26] MEDS: Tamsulosin HCL 0.4 MG CAPSULE PO (07:43)
[2022-10-26] MEDS: 0.9 % Sodium Chloride Flush 3 ML SYRINGE IVFLUSH (07:45)
--- NOTE | 2022-10-26 09:27 | PM.UROCN ---
History of Present Illness Consult details Consult date: 10/26/22 Narrative: 31-year-old female history of recurrent kidney stones:? Patient was recently here for urolithiasis 10/21:? She had Left ureteroscopy, and stent placement 10/22/22. The patient presented to ED. Patient reports nausea and severe intermittent left-sided flank pain and diffuse abdominal pain as well as juan luis hematuria with blood clots, all symptoms may be related to stent. CTAP-10/25/22- notes that ureteral stone migrated to left kidney lower pole. No hydronephrosis. Discussed plan to remove stent today. Pt is on IV abx for UTI. Will plan on elective outpatient Left ESWL. Review of Systems Review of Systems: Ten point review of systems negative other than stated in [facility] Past Medical History Medical History IBS (irritable bowel syndrome) Vaso vagal episode Surgical History Surgical History No pertinent past surgical history Social History Social History Household Members: Spouse Household Members Other:: 2 Housing: House Do you presently have visiting nurse or other home services: No Alcohol intake: current Alcohol intake frequency: does not drink Patient Tobacco Use Status: Never used Tobacco e-Cigarette/Vaping Use: Never Used Second Hand Smoke Exposure: No Substance Use Type: Marijuana Advance Directives Date on File: 10/25/22 service: No Current occupational status: unemployed Meds Allergies Allergy/AdvReac Type Severity Reaction Status Date / Time No Known Allergies Allergy Verified 10/19/22 17:31 [No Known Allergies*] Active Medications: Current Medications Lactated Ringer's (Lr) 1,000 mls @ 100 mls/hr IVCONT .Q10H [facility] Last Admin: 10/26/22 05:36 Dose: 100 mls/hr Ketorolac Tromethamine (Ketorolac Tromethamine 30 Mg/Ml Vial) 30 mg IVPUSH Q6H PRN PRN Reason: Pain, Moderate (Pain Scale 4-6 Last Admin: 10/25/22 21:56 Dose: 30 mg Morphine Sulfate (Morphine Sulfate 2 Mg/Ml Cartridge) 1 mg IVPUSH Q4H PRN; Protocol PRN Reason: abd pain Last Admin: 10/26/22 07:42 Dose: 1 mg Pharmacy Consult (Consult Rx Perform Med Rec) 1 each MISCELLANE ONCE PRN PRN Reason: Consult order Sodium Chloride (0.9 % Sodium Chloride Flush 3 Ml Syringe) 3 ml IVFLUSH QSHIFT [facility] Last Admin: 10/26/22 07:45 Dose: 3 ml Tamsulosin HCl (Tamsulosin Hcl 0.4 Mg Capsule) 0.4 mg PO DAILY [facility] Last Admin: 10/26/22 07:43 Dose: 0.4 mg Home Medications Medication Instructions Recorded Confirmed Last Taken Type apremilast 30 mg tablet (Otezla) 1 tab PO BID 10/19/22 10/25/22 10/25/22 History escitalopram oxalate 20 mg tablet 1 tab PO DAILY 10/19/22 10/25/22 10/25/22 History Physical Exam Vital Signs: Vital Signs: Last Vital Signs Temp 97.3 F 10/26/22 07:45 Pulse 69 10/26/22 07:45 Resp 18 10/26/22 07:45 BP 162/85 H 10/26/22 07:45 Pulse Ox 99 10/26/22 07:45 O2 Del Method Room Air 10/26/22 07:45 BMI result Body Mass Index 40.1 Const: General: cooperative, healthy appearing and no acute distress Orientation/consciousness: patient oriented x3 HEENT: Head: Yes normal to inspection, Yes normocephalic and Yes atraumatic Eyes: Conjunctivae: conjunctivae normal Neck: Neck: Yes normal visual inspection and Yes trachea midline Chest: Chest palpation & inspection: normal inspection of the chest Resp: Effort & Inspection: normal respiratory effort Cardio: Rate: regular rate GI: Inspection: Yes normal to inspection Palpation (GI): Soft to palpation Skin: General skin exam: no rashes or lesions noted Neuro: General: patient oriented x3 Extrem: General: No edema Psych: Appearance: grossly normal Results Labs 10/25/22 16:30 10/25/22 16:30 Labs: Abnormal lab results 10/25/22 10/25/22 Range/Units 16:30 16:30 WBC 11.2 H (4.8-10.8) X10*3/uL Immature Gran % (Auto) 0.6 H (0.0-0.4) % Abs Immat Gran (auto) 0.07 H (0.00-0.03) X10*3/uL Urine Protein 300 (3+) H (Neg-Trace) mg/dL Urine Glucose (UA) 250 H (Negative) mg/dL Urine Blood Large (3+) H (Negative) Urine Nitrite Positive H (Negative) Ur Leukocyte Esterase Moderate (2+) H (Negative) Urine RBC >20 H (0-2) /HPF Short CBC 10/25/22 Range/Units 16:30 WBC 11.2 H (4.8-10.8) X10*3/uL Hgb 14.0 (12.0-16.0) g/dl Hct 43.3 (37.0-47.0) % Plt Count 282 (160-400) X10*3/uL BMP 10/25/22 16:30 Sodium 139 Potassium 4.7 D Chloride 105 Carbon Dioxide 26 BUN 11 Creatinine 0.76 Calcium 9.1 Liver Function 10/25/22 Range/Units 16:30 Total Bilirubin 0.3 (0.0-1.0) mg/dL AST 12 (5-31) U/L ALT 11 (0-31) U/L Alkaline Phosphatase 93 (39-117) U/L Albumin 4.0 (3.5-5.0) g/dL Urine 10/25/22 10/25/22 Range/Units 16:30 16:30 Urine Color ORANGE Urine Appearance Cloudy Urine pH 6.5 (5.0-9.0) Ur Specific [place] 1.015 (1.005-1.025) Urine Protein 300 (3+) H (Neg-Trace) mg/dL Urine Glucose (UA) 250 H (Negative) mg/dL Urine Test NEGATIVE (NEGATIVE) All other labs normal. Assessment and Plan (1) UTI (urinary tract infection): Status: Acute (2) Kidney stone: Status: Acute (3) Ureteral stent present: Status: Acute Plan Remove left ureteral stent, out patient management of Left renal stone with ESWL Time Spent With Patient Time: Total time managing care of this patient today ____ minutes. Procedures Date of Service Date of Service: 10/26/22
--- NOTE | 2022-10-26 10:38 | P.CONAN_ITS ---
[facility] Active Problems Active Problems: All Active Problems (Updated 10/26/22 @ 09:28 by Damion Cramer MD) Ureteral stent present (Acute) Hydronephrosis with ureteral calculus (Acute) UTI (urinary tract infection) (Acute) Hydronephrosis (Acute) Urolithiasis (Acute) COVID-19 virus infection (Acute) Abdominal pain (Acute) Kidney stone (Acute) Nausea & vomiting (Acute) Syncope (Acute) Pyelonephritis (Acute) Past Medical History Medical History IBS (irritable bowel syndrome) Vaso vagal episode Family History Family history of problems with anesthesia: No Surgical History Surgical History No pertinent past surgical history History of Problems with Anesthesia: No Social History Social History Household Members: Spouse Household Members Other:: 2 Housing: House Do you presently have visiting nurse or other home services: No Alcohol intake: current Alcohol intake frequency: does not drink Patient Tobacco Use Status: Never used Tobacco e-Cigarette/Vaping Use: Never Used Second Hand Smoke Exposure: No Substance Use Type: Marijuana Advance Directives Date on File: 10/25/22 service: No Current occupational status: unemployed Meds Allergies Allergy/AdvReac Type Severity Reaction Status Date / Time No Known Allergies Allergy Verified 10/19/22 17:31 [No Known Allergies*] Active Medications: Current Medications Lactated Ringer's (Lr) 1,000 mls @ 100 mls/hr IVCONT .Q10H [facility] Last Admin: 10/26/22 05:36 Dose: 100 mls/hr Ketorolac Tromethamine (Ketorolac Tromethamine 30 Mg/Ml Vial) 30 mg IVPUSH Q6H PRN PRN Reason: Pain, Moderate (Pain Scale 4-6 Last Admin: 10/25/22 21:56 Dose: 30 mg Morphine Sulfate (Morphine Sulfate 2 Mg/Ml Cartridge) 1 mg IVPUSH Q4H PRN; Protocol PRN Reason: abd pain Last Admin: 10/26/22 07:42 Dose: 1 mg Pharmacy Consult (Consult Rx Perform Med Rec) 1 each MISCELLANE ONCE PRN PRN Reason: Consult order Sodium Chloride (0.9 % Sodium Chloride Flush 3 Ml Syringe) 3 ml IVFLUSH QSHIFT [facility] Last Admin: 10/26/22 07:45 Dose: 3 ml Tamsulosin HCl (Tamsulosin Hcl 0.4 Mg Capsule) 0.4 mg PO DAILY [facility] Last Admin: 10/26/22 07:43 Dose: 0.4 mg Home Medications Medication Instructions Recorded Confirmed Last Taken Type apremilast 30 mg tablet (Otezla) 1 tab PO BID 10/19/22 10/25/22 10/25/22 History escitalopram oxalate 20 mg tablet 1 tab PO DAILY 10/19/22 10/25/22 10/25/22 History Exam Exam Date and Time: October 26, 2022 1038 Height,Weight and Vital Signs: Height 5 ft 8 in Weight 119.9 kg Last Vital Signs Temp 97.3 F 10/26/22 07:45 Pulse 69 10/26/22 07:45 Resp 18 10/26/22 07:45 BP 162/85 H 10/26/22 07:45 Pulse Ox 99 10/26/22 07:45 O2 Del Method Room Air 10/26/22 07:45 Pertinent Lab Results Pertinent Lab Results: Laboratory Tests 10/25/22 10/25/22 10/25/22 16:30 16:30 16:30 WBC 11.2 H RBC 5.11 Hgb 14.0 Hct 43.3 MCV 84.7 MCH 27.4 MCHC 32.3 RDW 13.4 Plt Count 282 MPV 10.5 Immature Gran % (Auto) 0.6 H Neut % (Auto) 62.3 Lymph % (Auto) 26.5 [place] % (Auto) 9.6 Eos % (Auto) 0.6 Baso % (Auto) 0.4 Lymph # (Auto) 3.0 [place] # (Auto) 1.1 Eos # (Auto) 0.1 Baso # (Auto) 0.1 Abs Immat Gran (auto) 0.07 H Absolute Neuts (auto) 7.0 Absolute Nucleated RBC 0.000 Nucleated RBC % (auto) 0.0 Sodium 139 Potassium 4.7 D Chloride 105 Carbon Dioxide 26 Anion Gap 13 BUN 11 Creatinine 0.76 Estim Creat Clear Calc 146.5 Estimated GFR > 60 Random Glucose 92 Lactic Acid Calcium 9.1 Total Bilirubin 0.3 AST 12 ALT 11 Alkaline Phosphatase 93 Total Protein 6.6 Albumin 4.0 Urine Color ORANGE Urine Appearance Cloudy Urine pH 6.5 Ur Specific [place] 1.015 Urine Protein 300 (3+) H Urine Glucose (UA) 250 H Urine Ketones 15 Urine Blood Large (3+) H Urine Nitrite Positive H Ur Leukocyte Esterase Moderate (2+) H Urine RBC >20 H Urine WBC 0-5 Ur Squamous Epith Cells 0-2 Urine Bacteria 1+ Hyaline Casts 0-2 Urine Test COVID-19 (JUNAID) COVID-19 Clin Com 10/25/22 10/25/22 10/25/22 16:30 18:17 19:39 WBC RBC Hgb Hct MCV MCH MCHC RDW Plt Count MPV Immature Gran % (Auto) Neut % (Auto) Lymph % (Auto) [place] % (Auto) Eos % (Auto) Baso % (Auto) Lymph # (Auto) [place] # (Auto) Eos # (Auto) Baso # (Auto) Abs Immat Gran (auto) Absolute Neuts (auto) Absolute Nucleated RBC Nucleated RBC % (auto) Sodium Potassium Chloride Carbon Dioxide Anion Gap BUN Creatinine Estim Creat Clear Calc Estimated GFR Random Glucose Lactic Acid 1.2 Calcium Total Bilirubin AST ALT Alkaline Phosphatase Total Protein Albumin Urine Color Urine Appearance Urine pH Ur Specific [place] Urine Protein Urine Glucose (UA) Urine Ketones Urine Blood Urine Nitrite Ur Leukocyte Esterase Urine RBC Urine WBC Ur Squamous Epith Cells Urine Bacteria Hyaline Casts Urine Test NEGATIVE COVID-19 (JUNAID) Negative COVID-19 Clin Com See Note 10/25/22 20:09 WBC RBC Hgb Hct MCV MCH MCHC RDW Plt Count MPV Immature Gran % (Auto) Neut % (Auto) Lymph % (Auto) [place] % (Auto) Eos % (Auto) Baso % (Auto) Lymph # (Auto) [place] # (Auto) Eos # (Auto) Baso # (Auto) Abs Immat Gran (auto) Absolute Neuts (auto) Absolute Nucleated RBC Nucleated RBC % (auto) Sodium Potassium Chloride Carbon Dioxide Anion Gap BUN Creatinine Estim Creat Clear Calc Estimated GFR Random Glucose Lactic Acid Calcium Total Bilirubin AST ALT Alkaline Phosphatase Total Protein Albumin Urine Color Urine Appearance Urine pH Ur Specific [place] Urine Protein Urine Glucose (UA) Urine Ketones Urine Blood Urine Nitrite Ur Leukocyte Esterase Urine RBC Urine WBC Ur Squamous Epith Cells Urine Bacteria Hyaline Casts Urine Test COVID-19 (JUNAID) Negative COVID-19 Clin Com See Note Airway Mallampati Class: II Loose/Missing/Broken Teeth: Yes Heart: rr Lungs: cta Assessment and Plan Final Anesthetic Review Family History of Problems with Anesthesia: No History of Problems with Anesthesia: No NPO: Yes ASA Class: II Final Preanesthetic Review: No Changes in Pt Med Stat, Meds/Allgs Chart Reviewed, Consent Obtained/Reviewed and Anes Risks/Benef Reviewed Patient Risk: Low Procedure Risk: Low Anesthetic Plan Anesthetic Plan: GA and MAC:
--- NOTE | 2022-10-26 11:13 | MHC.SHP ---
Pre-Procedural Eval Section A Date of Service: 10/26/22 The patient is an INPATIENT: Yes The History & Physical has been completed within 30 days and I have reviewed it.: Yes Section B Chief Complaint: Renal stone / uti Allergies: Allergies Allergy/AdvReac Type Severity Reaction Status Date / Time No Known Allergies Allergy Verified 10/19/22 17:31 [No Known Allergies*] Plan Diagnosis/Plan: Unchanged I have reviewed the history and physical and performed a pertinent physical examination on my patient. No changes have occurred unless specified. Cystoscopy, remove ureteral stent, possible retrograde Time Spent With Patient Time: Total time managing care of this patient today ____ minutes.
--- NOTE | 2022-10-26 12:06 | W.PM.OPN ---
Operative Note Operative Note Date of Service: 10/26/22 Narrative: PreOperative Diagnosis:?? left renal stone, history of hydronephrosis status post ureteral stent Post Operative Diagnosis:?? ? left renal stone, history of hydronephrosis status post ureteral stent Procedure: cystoscopy, left ureteral stent removal Surgeon:?Dr Damion Cramer Anesthesia:? MAC Indications for procedure: 31-year-old female history of recurrent kidney stones:? Patient was recently here for urolithiasis 10/21:? She had Left ureteroscopy, and stent placement 10/22/22.? The patient presented to ED.? Patient reports nausea and severe intermittent left-sided flank pain and diffuse abdominal pain as well as juan luis hematuria with blood clots, all symptoms may be related to stent. ? CTAP-10/25/22- notes that ureteral stone migrated to left kidney lower pole.? No hydronephrosis. Discussed plan to remove stent today. Pt is on IV abx for UTI.? Will plan on elective outpatient Left ESWL. Procedure: After informed consent was verified the patient was brought to the operating placed on the OR table in supine position.? IV sedation was administered per protocol.? The patient was placed in lithotomy position, prepped and draped in the usual sterile fashion.? Safety pause time-out and side of surgery confirmed.? Antibiotics confirmed. A 22 [place] cystoscope was inserted transurethrally, The bladder was visualized.? Both ureteric orifices were in normal position. The distal ureteral stent was visualized there was edematous changes at the left ureteral orifice and minimal blood clots noted, consistent with presence of the stent. The distal end of the left ureteral stent was grasped with the flexible grasping forceps and was removed without difficulty. The bladder was emptied.?The rigid cystoscope was removed. ? 2% lidocaine jelly was inserted transurethrally. The patient tolerated the procedure well and was brought to the recovery room in stable condition. Complications: None Drains: None
[2022-10-26] MEDS: Ketorolac Tromethamine 30 MG/ML VIAL IVPUSH ×2 (12:08→18:12)
--- NOTE | 2022-10-26 12:57 | HO.PM.IMPN ---
Subjective Subjective Date of Service: 10/26/22 Interval History: Seen and evaluated Pain in Lt inguinal area and CVA no other overnight events Review of Systems Review of Systems: Yes all other systems are reviewed and are negative Physical Exam Vital Signs: Vital Signs: Last Vital Signs Temp 97.3 F 10/26/22 12:14 Pulse 80 10/26/22 12:14 Resp 16 10/26/22 12:14 BP 142/95 H 10/26/22 12:14 Pulse Ox 98 10/26/22 12:14 O2 Del Method Room Air 10/26/22 12:14 BMI result Body Mass Index 40.1 Const: Other: Constitutional : Awake, interactive, not in distress Neck : Normal inspection, Supple Cardiovascular : RRR, no JVP, no lower extremity edema Respiratory : good bilateral air entry, no crackles, wheezes or rhonchi Gastrointestinal: soft, lax, Normal bowel sounds, Non tender, Lt CVA Skin : Warm, Dry Neurological : Alert & oriented x3, No focal deficit Objective Data Active Medications Fentanyl (Fentanyl Citrate/Pf 100 Mcg/2 Ml Vial) 25 mcg IVPUSH Q5M PRN; Protocol PRN Reason: Pain, Moderate (Pain Scale 4-6 Lactated Ringer's (Lr) 1,000 mls @ 100 mls/hr IVCONT .Q10H [facility] Last Admin: 10/26/22 05:36 Dose: 100 mls/hr Documented By: JOSÉ MANUEL Ketorolac Tromethamine (Ketorolac Tromethamine 30 Mg/Ml Vial) 30 mg IVPUSH Q6H PRN PRN Reason: Pain, Moderate (Pain Scale 4-6 Last Admin: 10/26/22 12:08 Dose: 30 mg Documented By: CHELA Morphine Sulfate (Morphine Sulfate 2 Mg/Ml Cartridge) 1 mg IVPUSH Q4H PRN; Protocol PRN Reason: abd pain Last Admin: 10/26/22 07:42 Dose: 1 mg Documented By: LEXY Pharmacy Consult (Consult Rx Perform Med Rec) 1 each MISCELLANE ONCE PRN PRN Reason: Consult order Sodium Chloride (0.9 % Sodium Chloride Flush 3 Ml Syringe) 3 ml IVFLUSH QSHIFT [facility] Last Admin: 10/26/22 07:45 Dose: 3 ml Documented By: LEXY Tamsulosin HCl (Tamsulosin Hcl 0.4 Mg Capsule) 0.4 mg PO DAILY BENJAMIN Last Admin: 10/26/22 07:43 Dose: 0.4 mg Documented By: LEXY Labs 10/25/22 16:30 10/25/22 16:30 Labs: Laboratory Results - last 24 hr 10/25/22 10/25/22 10/25/22 16:30 16:30 16:30 MCV 84.7 MCH 27.4 MCHC 32.3 RDW 13.4 Plt Count 282 MPV 10.5 Immature Gran % (Auto) 0.6 H Neut % (Auto) 62.3 Lymph % (Auto) 26.5 [place] % (Auto) 9.6 Eos % (Auto) 0.6 Baso % (Auto) 0.4 Lymph # (Auto) 3.0 [place] # (Auto) 1.1 Eos # (Auto) 0.1 Baso # (Auto) 0.1 Abs Immat Gran (auto) 0.07 H Absolute Neuts (auto) 7.0 Absolute Nucleated RBC 0.000 Nucleated RBC % (auto) 0.0 Anion Gap 13 Estim Creat Clear Calc 146.5 Estimated GFR > 60 Random Glucose 92 Lactic Acid Calcium 9.1 Total Bilirubin 0.3 AST 12 ALT 11 Alkaline Phosphatase 93 Total Protein 6.6 Albumin 4.0 Urine Color ORANGE Urine Appearance Cloudy Urine pH 6.5 Ur Specific [place] 1.015 Urine Protein 300 (3+) H Urine Glucose (UA) 250 H Urine Ketones 15 Urine Blood Large (3+) H Urine Nitrite Positive H Ur Leukocyte Esterase Moderate (2+) H Urine RBC >20 H Urine WBC 0-5 Ur Squamous Epith Cells 0-2 Urine Bacteria 1+ Hyaline Casts 0-2 Urine Test COVID-19 (JUNAID) COVID-19 Clin Com 10/25/22 10/25/22 10/25/22 16:30 18:17 19:39 MCV MCH MCHC RDW Plt Count MPV Immature Gran % (Auto) Neut % (Auto) Lymph % (Auto) [place] % (Auto) Eos % (Auto) Baso % (Auto) Lymph # (Auto) [place] # (Auto) Eos # (Auto) Baso # (Auto) Abs Immat Gran (auto) Absolute Neuts (auto) Absolute Nucleated RBC Nucleated RBC % (auto) Anion Gap Estim Creat Clear Calc Estimated GFR Random Glucose Lactic Acid 1.2 Calcium Total Bilirubin AST ALT Alkaline Phosphatase Total Protein Albumin Urine Color Urine Appearance Urine pH Ur Specific [place] Urine Protein Urine Glucose (UA) Urine Ketones Urine Blood Urine Nitrite Ur Leukocyte Esterase Urine RBC Urine WBC Ur Squamous Epith Cells Urine Bacteria Hyaline Casts Urine Test NEGATIVE COVID-19 (JUNAID) Negative COVID-19 Clin Com See Note 10/25/22 20:09 MCV MCH MCHC RDW Plt Count MPV Immature Gran % (Auto) Neut % (Auto) Lymph % (Auto) [place] % (Auto) Eos % (Auto) Baso % (Auto) Lymph # (Auto) [place] # (Auto) Eos # (Auto) Baso # (Auto) Abs Immat Gran (auto) Absolute Neuts (auto) Absolute Nucleated RBC Nucleated RBC % (auto) Anion Gap Estim Creat Clear Calc Estimated GFR Random Glucose Lactic Acid Calcium Total Bilirubin AST ALT Alkaline Phosphatase Total Protein Albumin Urine Color Urine Appearance Urine pH Ur Specific [place] Urine Protein Urine Glucose (UA) Urine Ketones Urine Blood Urine Nitrite Ur Leukocyte Esterase Urine RBC Urine WBC Ur Squamous Epith Cells Urine Bacteria Hyaline Casts Urine Test COVID-19 (JUNAID) Negative COVID-19 Clin Com See Note Microbiology Microbiology Results: Microbiology 10/25/22 17:51 Urine Culture - Preliminary Urine clean catch - Urine baltazar top No growth to date. Assessment and Plan (1) Ureteral stent present: Status: Acute (2) UTI (urinary tract infection): Status: Acute (3) Urolithiasis: Status: Acute Plan 31-year-old was past medical history for vasovagal syncope as well as IBS presents to the hospital with abdominal pain found to have hydronephrosis with obstructing stone as well as UTI Nephrolithasis :nonobstructing left lower pole renal calculus?. IV fluids, analgesics IV antibiotics follow cultures Flomax Urology to do cystoscopy ?acute UTI urinary frequency, positive UA IV antibiotics follow cultures ?morbid obesity continue Otezla near syncope possible due to pain/dehydration No abnormalities noted on tele ekg normal DVT prophylaxis:? Early ambulation, SCDs, for possible intervention for removal of the kidney stone Patient will need overnight hospital stay for IV antibiotics/IV fluids, urology procedure Time Spent With Patient Time: Total time managing care of this patient today ____ minutes. Quality Stroke Does the patient have a stroke diagnosis?: No VTE Prior VTE?: No VTE Risk Level:: Medical - moderate - high VTE Device Contraindication: N/A - Device Ordered VTE Drug Contraindication: N/A - Med Ordered
[2022-10-27] VITALS: BP 128/69; PULSE 83; RESP 18; TEMP 36.2; O2SAT 97
[2022-10-27] MEDS: Lactated Ringers 1,000 ML 100 ML IVCONT (01:30)
--- NOTE | 2022-10-27 03:05 | PC.NURSE ---
Pt c/o abdl bloating and feeling constipated, +BS, pt requested for stool softener, Dr. Butts was notified, Miralax was ordered, when med wa available, pt claimed she had a BM with relief from discomfort, then refusing to take Miralax.
[2022-10-27 03:40] VITALS: BP 129/75; PULSE 79; RESP 18; TEMP 36.7; O2SAT 97
[2022-10-27] MEDS: Morphine Sulfate 2 MG/ML CARTRIDGE 1 MG IVPUSH (04:31)
[2022-10-27 06:24] LABS: Hematocrit 39.5 % (37.0-47.0); Hemoglobin 13.1 g/dl (12.0-16.0); Mean Corpuscular HGB Conc 33.2 g/dl (31.0-35.0); Mean Corpuscular Hemoglobin 28.2 pg (27.0-33.0); Mean Corpuscular Volume 84.9 fL (80.0-98.0); Mean Platelet Volume 10.6 fL (9.4-12.3); Platelet Count 231 X10*3/uL (160-400); Red Blood Count 4.65 X10*6/uL (4.20-5.50); Red Cell Distribution Width 13.2 % (11.0-16.0); White Blood Count 8.6 X10*3/uL (4.8-10.8)
[2022-10-27 06:36] LABS: Anion Gap 12 (12-20); Blood Urea Nitrogen 13 mg/dL (9-16); Calcium 8.9 mg/dL (8.4-10.2); Carbon Dioxide 27 mmol/L (22-29); Chloride 106 mmol/L (96-108); Creatinine Clr Calc Pharmacy 146.7; Estimated Glomerular Filt Rate > 60; Glucose Random 91 mg/dL (60-115); Potassium 4.5 mmol/L (3.3-5.1); Sodium 140 mmol/L (135-145)
[2022-10-27] MEDS: Tamsulosin HCL 0.4 MG CAPSULE PO (07:36)
[2022-10-27 08:00] VITALS: BP 137/75; PULSE 81; RESP 18; TEMP 36.7; O2SAT 98
[2022-10-27] MEDS: Escitalopram Oxalate 20 MG TABLET PO (09:33)
--- NOTE | 2022-10-27 10:46 | PM.DS ---
DS: Providers Provider Date of Service: 10/27/22 Date of admission: 10/25/22 18:51 Primary care physician: Evin Colin MD Consults: 10/25/22 18:44 Consult to Urology Routine Consulting Provider: [facility] Reason for consultation: nephrolithasis /uti Has provider been notified: No DS: Diagnosis Discharge Diagnosis (1) Ureteral stent present: Status: Acute (2) UTI (urinary tract infection): Status: Acute (3) Urolithiasis: Status: Acute DS: Summary Hospital Course Hospital Course: from initial hpi: 31-year-old female history of recurrent kidney stones:? Patient was recently here for urolithiasis10/21:? Which was treated with hydration, pain medication and subsequently her pain significantly improved and seen by Urology and thought to be passed her stone so sen home with flomax and naprosyn-for now coming back with again significant pain in the left flank area and? possible nearsyncope presenting to the emergency department for evaluation of severe left-sided flank pain, diffuse abdominal pain, lightheadedness, nausea since this morning.? Patient tells me she got a stent placed by Urology on Tuesday by , reports everything seemed to be going well until today.? Patient reports that today she has been feeling nauseous and like she is going to pass out.? She also reports that she is having severe intermittent left-sided flank pain and diffuse abdominal pain as well as juan luis hematuria with blood clots. Denies any new complaint of chest pain or shortness of breath or abdominal pain orvomiting or cough Denies any weakness or numbness. hospital course: Patient presented with pain, hematuria due to known nephrolithiasis, nonobstructing on left side. She was given IV fluids, pain meds, empiric antibiotics, cultures were negative. Was seen by Urology who removed stent recommended outpatient follow-up for ESWL. For morbid obesity she will continue Otezla. Patient is feeling better will be discharged home. Time Spent with Patient Time attestation: Total time managing care of this patient today ____ minutes. Discharge coordination time: Greater than 30 minutes Quality: Safe Use of Opioids Does Pt have an Active Cancer Diagnosis on the Problem List?: No Quality: Stroke Does the patient have a stroke diagnosis?: No Physical Exam Vital Signs: Vital Signs: Last Vital Signs Temp 98.1 F 10/27/22 08:00 Pulse 81 10/27/22 08:00 Resp 18 10/27/22 08:00 BP 137/75 10/27/22 08:00 Pulse Ox 98 10/27/22 08:00 O2 Del Method Room Air 10/27/22 08:00 BMI result Body Mass Index 40.1 General: AO X 3, no acute distress Resp: CTA bilateral, no accessory muscles used CVS: S1,S2,RRR GI: soft, non tender, non distended Neuro: motor grossly intact, alert Psych: appropriate affect, appropriate insight DS: Data Data Completed and Pending Labs on day of discharge: Laboratory Results - last 24 hr 10/27/22 10/27/22 05:00 05:00 WBC 8.6 RBC 4.65 Hgb 13.1 Hct 39.5 MCV 84.9 MCH 28.2 MCHC 33.2 RDW 13.2 Plt Count 231 MPV 10.6 Absolute Nucleated RBC 0.000 Nucleated RBC % (auto) 0.0 Sodium 140 Potassium 4.5 Chloride 106 Carbon Dioxide 27 Anion Gap 12 BUN 13 Creatinine 0.75 Estim Creat Clear Calc 146.7 Estimated GFR > 60 Random Glucose 91 Calcium 8.9 Preliminary micro results at discharge 10/25/22 18:17 Blood Culture - Preliminary Blood - Venous No growth after 24 hours. 10/25/22 18:17 Blood Culture - Preliminary Blood - Venous No growth after 24 hours. Discharge Plan Discharge Anticipated Discharge Date/Time: 10/27/22 10:45 Patient Disposition: Home, Self-Care Discharge Diagnosis: hematuria Referrals: Evin Colin MD [Primary Care Provider] - 1 Week Andrei Sabillon MD [Physician] - 1 Week Discharge Medications: Continued hydromorphone [Dilaudid] 2 mg tablet 2 mg PO Q6H PRN (Reason: pain) Qty: 8 0RF Rx Instructions: Partial Fill upon patient request. escitalopram oxalate 20 mg tablet 1 tab PO DAILY Otezla 30 mg tablet 1 tab PO BID tamsulosin 0.4 mg Capsule 0.4 mg PO DAILY Qty: 30 0RF naproxen [Naprosyn] 500 mg tablet 500 mg PO BID PRN (Reason: pain) Qty: 10 0RF phenazopyridine [Pyridium] 200 mg tablet 200 mg PO TID Qty: 30 0RF Rx Instructions: take with food as may cause nausea oxybutynin chloride 10 mg tablet extended release 24hr 10 mg PO DAILY Qty: 30 0RF Discharge Orders: Discharge Order (Routine); Ordered 10/27/22 Ordered By: Lester Garcia Diet: Advance to usual diet Activity on Discharge: As tolerated Stand Alone Forms: Patient Portal Discharge page Care Plan Goals: recovery Health Concerns: renal stones Plan of Treatment: follow up with urology Assessment: see above
--- NOTE | 2022-10-27 10:50 | MHC.CM.PN ---
pt dcd home no skilled services ordered by
--- NOTE | 2022-10-27 15:15 | HO.POSTANES ---
Post Anesthesia Evaluation Post Anesthesia Evaluation Vital Signs: Vital Signs Temp Pulse Resp BP Pulse Ox O2 Del Method 10/27/22 08:00 98.1 F 81 18 137/75 98 Room Air 10/27/22 03:40 98.0 F 79 18 129/75 97 CPAP Anesthesia: General Mental Status: Awake Pain Control: Satisfactory Nausea/Vomiting: None Hydration: Adequate Anesthesia-Related Issues: No Anes. Related Issues
== END 2022-10-27 12:51 | disposition home or self-care (01) ==
LOC: HO.ED 18:53 → HO.EDOVER 19:09 → HO.S3 19:54
PROVIDERS: Physician Assistant; Student in an Organized Health Care Education/Training Program; Urology; Admitting Provider Internal Medicine; Emergency Provider Emergency Medicine Emergency Medical Services; PCP Psychiatry & Neurology Psychiatry; Visit Provider Internal Medicine
PROC: (CPT 52310; principal; 2022-10-26 11:30)
DX: R31.9 Hematuria, unspecified (principal); N39.0 Urinary tract infection, site not specified; N20.2 Calculus of kidney with calculus of ureter; K76.0 Fatty (change of) liver, not elsewhere classified; Z20.822 Contact with and (suspected) exposure to COVID-19; Z87.442 Personal history of urinary calculi; F12.90 Cannabis use, unspecified, uncomplicated; E66.9 Obesity, unspecified; Z68.41 Body mass index [BMI] 40.0-44.9, adult; Z96.0 Presence of urogenital implants; Z79.899 Other long term (current) drug therapy
CPT/HCPCS: 52310; 36415; 74176; 80048; 80053; 81001; 81003; 81025; 83605; 85025; 85027; 87040; 87086; 87635; 93005; 96365; 96366; 99221; 99285; J1885; J1956; J2250; J2270; J3010; Q9967

== ENCOUNTER 2022-10-28 06:11 | Observation (INO) | payer OTHER, SELFPAY ==
[2022-10-28] VITALS (12 sets, daily range): BP systolic 127–168; BP diastolic 65–93; PULSE 68–105; RESP 13–20; TEMP 36.4–36.9; O2SAT 95–100; BMI 41.0; BMI 40.9
--- NOTE | ~2022-10-28 | CT_ITS ---
EXAMINATION: CT ABDOMEN AND PELVIS WITHOUT CONTRAST CLINICAL INFORMATION: Recurrent flank pain COMPARISON: CT abdomen from 10/25/2022 TECHNIQUE: Multidetector volumetric imaging was performed from the superior aspect of the liver through the pubic symphysis. Sagittal and coronal reformatted images were obtained on the technologist's workstation. This CT examination was performed using dose optimization techniques as appropriate, variously including the following: *Automated exposure control *Adjustment of mA and/or kV according to patient size (this includes techniques or standardized protocols for targeted exams where dose is matched to indication/reason for exam; i.e. extremities or head) *Use of iterative reconstruction technique DLP: 903 mGy-cm FINDINGS: LUNG BASES: The visualized lung bases are unremarkable. LIVER, GALLBLADDER, AND BILIARY TREE: The liver is normal in size, shape, and attenuation. No focal hepatic lesion or biliary ductal dilatation is present. The gallbladder is unremarkable with no evidence of radiopaque gallstones, gallbladder wall thickening, or obvious pericholecystic inflammatory changes. PANCREAS: Unremarkable. SPLEEN: Unremarkable. 1.5 cm splenule. ADRENAL GLANDS: Unremarkable. KIDNEYS AND URETERS: Interval removal of left-sided double-J nephroureteral stent. Mild left-sided hydroureteronephrosis secondary to calculus along the left proximal ureter measuring 4 mm with mild periureteral stranding. No right-sided nephrolithiasis or hydronephrosis. BLADDER: Urinary bladder is decompressed with dependent air within the urinary bladder lumen, likely iatrogenic from recent double-J nephroureteral catheter. GASTROINTESTINAL TRACT: The small and large bowel are unremarkable. The appendix is unremarkable. ABDOMINAL WALL: No significant hernia is appreciated. LYMPH NODES: Normal. VASCULAR: Unremarkable. PELVIC VISCERA: Anteverted uterus. Bilateral adnexal/ovarian hypodense foci measuring up to 2.2 cm demonstrating fluid attenuation statistically representing cysts, stable from prior imaging. OSSEOUS STRUCTURES: Degenerative changes along the posterior L5-S1 disc space. CT/CT abdomen pelvis wo IV con IMPRESSION: 1. Interval removal of left-sided double-J nephroureteral stent. Mild left-sided hydroureteronephrosis secondary to calculus along the left proximal ureter measuring 4 mm with mild periureteral stranding. 2. Urinary bladder is decompressed with dependent air within the urinary bladder lumen, likely iatrogenic from recent double-J nephroureteral catheter.
--- NOTE | ~2022-10-28 | FL_ITS ---
EXAMINATION: Intraoperative fluoroscopy CLINICAL INFORMATION: Left ureteral stone COMPARISON: CT abdomen pelvis October 28, 2022 TECHNIQUE: Intraoperative fluoroscopy was provided for use by Dr. Owens. A total of 6 images were saved to PACS. A radiologist was not present during imaging. Today's dictation is only for administrative purposes to document intraoperative fluoroscopic usage. TOTAL FLUOROSCOPIC TIME: 25 seconds FL/FL guidance in OR FINDINGS~\^^ Intraoperative fluoroscopy provided for use by Dr. Owens. Please see operative note for detailed findings.
[2022-10-28 07:19] LABS: MANUAL DIFF FLAG NO
[2022-10-28 07:21] LABS: Basophils Percent Auto 0.4 % (0-2); Eosinophils Absolute Auto 0.1 X10*3/uL (0.0-0.4); Hematocrit 41.5 % (37.0-47.0); Hemoglobin 13.5 g/dl (12.0-16.0); Imm Gran Abs Auto 0.08 X10*3/uL (0.00-0.03); Imm Gran Pct Auto 0.8 % (0.0-0.4); Lymphocytes Absolute Auto 2.6 X10*3/uL (1.2-4.9); Lymphocytes Percent Auto 26.3 % (20-40); Mean Corpuscular HGB Conc 32.5 g/dl (31.0-35.0); Mean Corpuscular Hemoglobin 27.3 pg (27.0-33.0); Mean Platelet Volume 9.8 fL (9.4-12.3); Monocytes Absolute Auto 0.8 X10*3/uL (0.1-1.2); Monocytes Percent Auto 8.3 % (2-11); Neutrophils Absolute Auto 6.3 x10*3/uL (2.0-8.3); Neutrophils Percent Auto 63.2 % (45-73); Platelet Count 244 X10*3/uL (160-400); Red Blood Count 4.94 X10*6/uL (4.20-5.50); Red Cell Distribution Width 13.2 % (11.0-16.0)
[2022-10-28 07:36] LABS: Alanine Aminotransferase 12 U/L (0-31); Albumin Level 3.9 g/dL (3.5-5.0); Alkaline Phosphatase 98 U/L (39-117); Anion Gap 11 (12-20); Aspartate Amino Transferase 13 U/L (5-31); Bilirubin Total 0.3 mg/dL (0.0-1.0); Blood Urea Nitrogen 11 mg/dL (9-16); Carbon Dioxide 27 mmol/L (22-29); Chloride 107 mmol/L (96-108); Creatinine Clr Calc Pharmacy 134.1; Estimated Glomerular Filt Rate > 60; Glucose Random 86 mg/dL (60-115); Potassium 4.3 mmol/L (3.3-5.1); Sodium 141 mmol/L (135-145); Total Protein 6.3 g/dL (6.5-8.0)
[2022-10-28] MEDS: 0.9 % Sodium Chloride 1,000 ML 999 ML IV (08:16)
[2022-10-28] MEDS: HYDROmorphone HCl 1 MG/ML SYRINGE IVPUSH (08:29)
[2022-10-28] MEDS: Ketorolac Tromethamine 15 MG/ML VIAL IVPUSH (08:29)
[2022-10-28] MEDS: ondansetron HCL 4 MG/2 ML VIAL IVPUSH (08:29)
--- NOTE | 2022-10-28 08:40 | ED.GENADULT ---
HPI - General Adult General Chief complaint: Abdominal Pain Stated complaint: kidney stones, was here previously Time Seen by Provider: 10/28/22 07:53 Source: patient Mode of arrival: ambulatory Limitations: no limitations History of Present Illness HPI narrative: 31-year-old female presents with left-sided pain. Patient was recently discharged from hospital with kidney stones. Symptoms been going on for least a couple weeks. She was treated with hydration, analgesics. She was seen by Urology patient did have a stent placed by Dr. Giron. He then had to have the stent removed due to infection. Since then, patient has persistent severe pain. The pain is constant. There is some aches acute exacerbating and relieving features. She does take Dilaudid with some mild improvement. Currently her pain is a 10/10. The pain is left-sided radiates anteriorly. There is no clear exacerbating features. She does have some associated nausea but no significant vomiting. No diarrhea. She denies any fevers or chills. The patient describes her pain as severe sharp. Related Data Home Medications Medication Instructions Recorded Confirmed apremilast 30 mg tablet (Otezla) 1 tab PO BID 10/19/22 10/25/22 escitalopram oxalate 20 mg tablet 1 tab PO DAILY 10/19/22 10/25/22 Previous Rx's Medication Instructions Recorded naproxen 500 mg tablet (Naprosyn) 500 mg PO BID PRN pain #10 tabs 10/21/22 tamsulosin 0.4 mg capsule 0.4 mg PO DAILY #30 caps 10/21/22 oxybutynin chloride 10 mg 10 mg PO DAILY #30 tabs 10/22/22 tablet,extended release 24 hr phenazopyridine 200 mg tablet 200 mg PO TID #30 tabs 10/22/22 (Pyridium) hydromorphone 2 mg tablet 2 mg PO Q6H PRN pain #8 tabs 10/24/22 (Dilaudid) Allergies Allergy/AdvReac Type Severity Reaction Status Date / Time No Known Allergies Allergy Verified 10/28/22 06:29 [No Known Allergies*] [facility] Past Medical History Medical History IBS (irritable bowel syndrome) Vaso vagal episode Surgical History No pertinent past surgical history Social History Social History Household Members: Spouse Household Members Other:: 2 Housing: House Do you presently have visiting nurse or other home services: No Alcohol intake: current Alcohol intake frequency: does not drink Patient Tobacco Use Status: Never used Tobacco e-Cigarette/Vaping Use: Never Used Second Hand Smoke Exposure: No Substance Use Type: Marijuana Advance Directives: Yes Advance Directives on File: Yes Advance Directives Date on File: 10/25/22 service: No Current occupational status: unemployed Physical Exam ED Vital Signs: Vital Signs - 24 hr 10/28/22 06:26 10/28/22 08:00 10/28/22 09:49 Temperature 97.6 F Pulse Rate 75 72 68 Respiratory Rate 18 16 Blood Pressure 150/90 H 157/88 H 147/93 H Pulse Oximetry 97 99 99 Oxygen Delivery Method Room Air Room Air Room Air 10/28/22 10:09 Temperature Pulse Rate Respiratory Rate 20 Blood Pressure Pulse Oximetry Oxygen Delivery Method BMI result Body Mass Index 41.0 GEN: Well developed, no acute distress, alert, oriented HEENT: Normocephalic, atraumatic, normal external ears, nose appears normal, no oropharyngeal edema or exudates Eyes: Normal to appearance Neck: Supple, no lymphadenopathy Respiratory: Talks in complete sentences, no respiratory distress, clear to auscultation bilaterally Cardiovascular: Regular rate and rhythm, no murmurs rubs or gallops Abdomen: Soft, nontender, nondistended, no guarding, no rebound Back: No CVA tenderness Extremities: No clubbing cyanosis or edema Neurologic: No focal neurologic deficits, cranial nerves 2-12 intact, strength is 5/5 bilaterally, gait normal Skin: No rash Course Course Course Narrative: 31-year-old female presents with recurrent left-sided pain. The pain is severe. Will provide patient with analgesics, IV fluids, antiemetics and re-evaluate the patient. Will order CT scan to rule out any complications are related issues regarding recent stent removal, kidney stones, etc.. Reevaluation(s) Reevaluation #1: Spoke with Dr. Jose giron, patient will go to the OR at 4:00 p.m. this evening. She will likely be discharged from the operating room. Discussed with the patient as well. Time: 11:19 Medications Administered Generic Name Dose Route Start Last Admin Trade Name Pelon PRN Reason Stop Dose Admin Hydromorphone HCl 0.5 mg 10/28/22 09:16 10/28/22 10:09 Hydromorphone Hcl 0.5 Mg/0.5 Ml Syringe IVPUSH 0.5 mg 8XD PRN Administration severe pain Protocol Discontinued Medications Generic Name Dose Route Start Last Admin Trade Name Pelon PRN Reason Stop Dose Admin Hydromorphone HCl 1 mg 10/28/22 08:08 10/28/22 08:29 Hydromorphone Hcl 1 Mg/Ml Syringe IVPUSH 10/28/22 08:09 1 mg ONCE ONE Administration Protocol Sodium Chloride 1,000 mls @ 999 mls/hr 10/28/22 08:15 10/28/22 09:15 Ns IV 10/28/22 09:15 Infused .Q1H1M BENJAMIN Infusion Ketorolac Tromethamine 15 mg 10/28/22 08:08 10/28/22 08:29 Ketorolac Tromethamine 15 Mg/Ml Vial IVPUSH 10/28/22 08:09 15 mg ONCE ONE Administration Ondansetron HCl 4 mg 10/28/22 08:08 10/28/22 08:29 Ondansetron Hcl 4 Mg/2 Ml Vial IVPUSH 10/28/22 08:09 4 mg ONCE ONE Administration Medical Decision Making Medical Decision Making MDM Narrative: 31-year-old female presents with severe left-sided pain. Patient had recent hospitalization for kidney stone. She had stent placed which had to be removed for possible infection. Since then, patient continues have severe pain. She is not managing pain well at home. Will order CT scan to rule out complications related to this stent placement and removal, recurrent kidney stone into the ureter, or other intra-abdominal process per Differential Diagnosis Differential Diagnoses: The differential diagnosis associated with the presentation includes (Pyelonephritis, perforation, kidney stone, flank pain, neuropathic pain, musculoskeletal pain, strain, sprain) Ureterolithiasis Lab Data MDM Lab Attestation statement: I reviewed the patient's lab results. 10/28/22 07:14 10/28/22 07:14 Labs: Lab Results 10/28/22 10/28/22 10/28/22 Range/Units 07:14 07:14 08:37 WBC 10.0 (4.8-10.8) X10*3/uL RBC 4.94 (4.20-5.50) X10*6/uL Hgb 13.5 (12.0-16.0) g/dl Hct 41.5 (37.0-47.0) % MCV 84.0 (80.0-98.0) fL MCH 27.3 (27.0-33.0) pg MCHC 32.5 (31.0-35.0) g/dl RDW 13.2 (11.0-16.0) % Plt Count 244 (160-400) X10*3/uL MPV 9.8 (9.4-12.3) fL Immature Gran % (Auto) 0.8 H (0.0-0.4) % Neut % (Auto) 63.2 (45-73) % Lymph % (Auto) 26.3 (20-40) % [place] % (Auto) 8.3 (2-11) % Eos % (Auto) 1.0 (0-4) % Baso % (Auto) 0.4 (0-2) % Lymph # (Auto) 2.6 (1.2-4.9) X10*3/uL [place] # (Auto) 0.8 (0.1-1.2) X10*3/uL Eos # (Auto) 0.1 (0.0-0.4) X10*3/uL Baso # (Auto) 0.0 (0.0-0.2) X10*3/uL Abs Immat Gran (auto) 0.08 H (0.00-0.03) X10*3/uL Absolute Neuts (auto) 6.3 (2.0-8.3) x10*3/uL Absolute Nucleated RBC 0.000 (0.0-0.012) X10*3/uL Nucleated RBC % (auto) 0.0 (0.0-0.2) /100WBC Sodium 141 (135-145) mmol/L Potassium 4.3 (3.3-5.1) mmol/L Chloride 107 (96-108) mmol/L Carbon Dioxide 27 (22-29) mmol/L Anion Gap 11 L (12-20) BUN 11 (9-16) mg/dL Creatinine 0.83 (0.5-1.4) mg/dL Estim Creat Clear Calc 134.1 Estimated GFR > 60 Random Glucose 86 (60-115) mg/dL Calcium 9.0 (8.4-10.2) mg/dL Total Bilirubin 0.3 (0.0-1.0) mg/dL AST 13 (5-31) U/L ALT 12 (0-31) U/L Alkaline Phosphatase 98 (39-117) U/L Total Protein 6.3 L (6.5-8.0) g/dL Albumin 3.9 (3.5-5.0) g/dL Urine Color Yellow Urine Appearance Clear Urine pH 6.5 (5.0-9.0) Ur Specific [place] 1.020 (1.005-1.025) Urine Protein Negative (Neg-Trace) mg/dL Urine Glucose (UA) Negative (Negative) mg/dL Urine Ketones Negative (Negative) mg/dL Urine Blood Large (3+) H (Negative) Urine Nitrite Negative (Negative) Ur Leukocyte Esterase Trace H (Negative) Urine RBC >20 H (0-2) /HPF Urine WBC 6-10 H (0-5) /HPF Ur Squamous Epith Cells 0-2 (0-2) /HPF Urine Bacteria None Seen (None Seen) Hyaline Casts 0-2 (0-2) /LPF Independent Interpretation I performed an independent interpretation of an: CT Scan (ureterolithiasis) Radiology Impression Discussion of test interpretation with radiology: I have reviewed the radiologist's reading. ( CT/CT abdomen pelvis wo IV con IMPRESSION: 1. Interval removal of left-sided double-J nephroureteral stent. Mild left-sided hydroureteronephrosis secondary to calculus along the left proximal ureter measuring 4 mm with mild periureteral stranding. 2. Urinary bladder is decompres) External Record Review External record reviewed: Inpatient record (Recent discharge summary) Tests considered The following testing was considered but not selected: Ultrasound, CT scan Prescription Management I considered prescription management with: Pain Medication and Antibiotic Discharge Plan Discharge Clinical Impression: Kidney stone Prescriptions: No Action hydromorphone [Dilaudid] 2 mg tablet 2 mg PO Q6H PRN (Reason: pain) Qty: 8 0RF Rx Instructions: Partial Fill upon patient request. escitalopram oxalate 20 mg tablet 1 tab PO DAILY Otezla 30 mg tablet 1 tab PO BID tamsulosin 0.4 mg Capsule 0.4 mg PO DAILY Qty: 30 0RF naproxen [Naprosyn] 500 mg tablet 500 mg PO BID PRN (Reason: pain) Qty: 10 0RF phenazopyridine [Pyridium] 200 mg tablet 200 mg PO TID Qty: 30 0RF Rx Instructions: take with food as may cause nausea oxybutynin chloride 10 mg tablet extended release 24hr 10 mg PO DAILY Qty: 30 0RF
--- NOTE | 2022-10-28 08:42 | PC.NURSE ---
PT C/O 03/10 LL ABDOMINAL PAIN THAT STARTED EARLY THIS MORNING. PT HAS PAST HX OF KIDNEY STONES. SHE REPORTS THAT SHE HAD A PROCEDURE DONE HERE ON THIS PAST TUESDAY AND HAS BEEN BACK HERE 3 TIMES SINCE THEN. PT STATES SHE TOOK DILAUDID AROUND 0500 THIS MORNING. 20g IV INSERTED RAC, MEDS GIVEN DOCUMENTED. WILL CONTINUE TO MONITOR.
[2022-10-28 08:46] LABS: Appearance Urine Clear; Color Urine Yellow; Glucose Urine UA Negative (Negative); Leukocyte Esterase Urine Trace (Negative); Nitrite Urine Negative (Negative); PH 6.5 (5.0-9.0); UMIC TRIGGER UACC YES; Urine Blood Large (3+) (Negative); Urine Ketones Negative (Negative); Urine Protein Negative (Neg-Trace)
[2022-10-28 08:51] LABS: Bacteria Urine None Seen (None Seen); Hyaline Casts Urine 0-2 /LPF (0-2); RBC Urine >20 /HPF (0-2); Squamous Epithelial Cell Urine 0-2 /HPF (0-2); UACC Culture Trigger YES
[2022-10-28] MEDS: HYDROmorphone HCl 0.5 MG/0.5 ML SYRINGE IVPUSH (10:09)
[2022-10-28 11:49] LABS: COVID-19 Test Negative (Negative); IDNOW Serial# 9DB6401D
[2022-10-28 12:57] LABS: UPreg QC Valid YES; Urine Pregnancy NEGATIVE (NEGATIVE)
--- NOTE | 2022-10-28 15:54 | P.CONAN_ITS ---
HPI - Anesthesia Eval Consult details Narrative: 31 [address] scan shows mildleft-sided hydroureteronephrosis?. MARIA ELENA , uses CPAP h/o Vasovagal syncope . psoriasis , migraines Recent hospitalization for kidney stones , had stent placed and removed later ? , continues to have pain . Case discussed with the surgeon , mild hydronephrosis present . PMFSH Active Problems Active Problems: All Active Problems (Updated 10/28/22 @ 08:46 by Yao Neves MD) Ureteral stent present (Acute) Hydronephrosis with ureteral calculus (Acute) UTI (urinary tract infection) (Acute) Hydronephrosis (Acute) Urolithiasis (Acute) COVID-19 virus infection (Acute) Abdominal pain (Acute) Kidney stone (Acute) Nausea & vomiting (Acute) Syncope (Acute) Pyelonephritis (Acute) Past Medical History Medical History IBS (irritable bowel syndrome) Vaso vagal episode Functional capacity: wheelchair bound Family History Family history of problems with anesthesia: No Surgical History Surgical History No pertinent past surgical history History of Problems with Anesthesia: No Social History Social History Household Members: Spouse Household Members Other:: 2 Housing: House Do you presently have visiting nurse or other home services: No Alcohol intake: current Alcohol intake frequency: does not drink Patient Tobacco Use Status: Never used Tobacco e-Cigarette/Vaping Use: Never Used Second Hand Smoke Exposure: No Use of substances other than those prescribed or required for medical reasons: Yes Substance Use Type: Marijuana Substance Use Frequency: Weekly Are you DNR?: No Advance Directives: Yes Advance Directives on File: Yes Advance Directives Date on File: 10/25/22 service: No Current occupational status: unemployed Meds Allergies Allergy/AdvReac Type Severity Reaction Status Date / Time No Known Allergies Allergy Verified 10/28/22 06:29 [No Known Allergies*] Active Medications: Current Medications Hydromorphone HCl (Hydromorphone Hcl 0.5 Mg/0.5 Ml Syringe) 0.5 mg IVPUSH 8XD PRN; Protocol PRN Reason: severe pain Last Admin: 10/28/22 10:09 Dose: 0.5 mg Home Medications Medication Instructions Recorded Confirmed Last Taken Type apremilast 30 mg tablet (Otezla) 1 tab PO BID 10/19/22 10/25/22 10/25/22 History escitalopram oxalate 20 mg tablet 1 tab PO DAILY 10/19/22 10/25/22 10/25/22 History Exam Exam Date and Time: October 28, 2022 1554 Height,Weight and Vital Signs: Height 5 ft 8 in Weight 122.47 kg Last Vital Signs Temp 97.6 F 10/28/22 11:53 Pulse 105 H 10/28/22 11:53 Resp 18 10/28/22 11:53 BP 142/93 H 10/28/22 11:53 Pulse Ox 95 10/28/22 11:53 O2 Del Method Room Air 10/28/22 11:53 Pertinent Lab Results Pertinent Lab Results: Laboratory Tests 10/28/22 10/28/22 10/28/22 07:14 07:14 08:37 WBC 10.0 RBC 4.94 Hgb 13.5 Hct 41.5 MCV 84.0 MCH 27.3 MCHC 32.5 RDW 13.2 Plt Count 244 MPV 9.8 Immature Gran % (Auto) 0.8 H Neut % (Auto) 63.2 Lymph % (Auto) 26.3 Cassia % (Auto) 8.3 Eos % (Auto) 1.0 Baso % (Auto) 0.4 Lymph # (Auto) 2.6 Cassia # (Auto) 0.8 Eos # (Auto) 0.1 Baso # (Auto) 0.0 Abs Immat Gran (auto) 0.08 H Absolute Neuts (auto) 6.3 Absolute Nucleated RBC 0.000 Nucleated RBC % (auto) 0.0 Sodium 141 Potassium 4.3 Chloride 107 Carbon Dioxide 27 Anion Gap 11 L BUN 11 Creatinine 0.83 Estim Creat Clear Calc 134.1 Estimated GFR > 60 Random Glucose 86 Calcium 9.0 Total Bilirubin 0.3 AST 13 ALT 12 Alkaline Phosphatase 98 Total Protein 6.3 L Albumin 3.9 Urine Color Yellow Urine Appearance Clear Urine pH 6.5 Ur Specific [place] 1.020 Urine Protein Negative Urine Glucose (UA) Negative Urine Ketones Negative Urine Blood Large (3+) H Urine Nitrite Negative Ur Leukocyte Esterase Trace H Urine RBC >20 H Urine WBC 6-10 H Ur Squamous Epith Cells 0-2 Urine Bacteria None Seen Hyaline Casts 0-2 Urine Test COVID-19 (JUNAID) COVID-19 Clin Com 10/28/22 10/28/22 08:37 11:16 WBC RBC Hgb Hct MCV MCH MCHC RDW Plt Count MPV Immature Gran % (Auto) Neut % (Auto) Lymph % (Auto) Cassia % (Auto) Eos % (Auto) Baso % (Auto) Lymph # (Auto) Cassia # (Auto) Eos # (Auto) Baso # (Auto) Abs Immat Gran (auto) Absolute Neuts (auto) Absolute Nucleated RBC Nucleated RBC % (auto) Sodium Potassium Chloride Carbon Dioxide Anion Gap BUN Creatinine Estim Creat Clear Calc Estimated GFR Random Glucose Calcium Total Bilirubin AST ALT Alkaline Phosphatase Total Protein Albumin Urine Color Urine Appearance Urine pH Ur Specific [place] Urine Protein Urine Glucose (UA) Urine Ketones Urine Blood Urine Nitrite Ur Leukocyte Esterase Urine RBC Urine WBC Ur Squamous Epith Cells Urine Bacteria Hyaline Casts Urine Test NEGATIVE COVID-19 (JUNAID) Negative COVID-19 Clin Com See Note Narrative Narrative: Date of Service: 10/25/22 Procedure(s): ECG 12 lead EKG Vent. Rate : 075 BPM ? ? Atrial Rate : 075 BPM ?? P-R Int : 166 ms? QRS Dur : 084 ms ? ? QT Int : 400 ms ? ? ? P-R-T Axes : 054 044 037 degrees ?? QTc Int : 446 ms ? Normal sinus rhythm Normal ECG No previous ECGs available Airway Mallampati Class: III (narrow mouth opening ) TM Dist: >3cm Neck ROM: Full Loose/Missing/Broken Teeth: Yes Assessment and Plan Assessment Anesthesia Assessment: Anesthesia Plan Discussed and Chart Reviewed Final Anesthetic Review Family History of Problems with Anesthesia: No History of Problems with Anesthesia: No NPO: Yes ASA Class: III and Emergency Final Preanesthetic Review: Meds/Allgs Chart Reviewed, Consent Obtained/Reviewed and Anes Risks/Benef Reviewed Patient Risk: Intermediate Procedure Risk: Intermediate Assessment/Block/Sedation in SS: Assess/Block/Sedation- Anesthetic Plan Anesthetic Plan: GA and Agree w/ Assess. and Plan Disposition: Standard PACU
--- NOTE | 2022-10-28 16:46 | MHC.SHP ---
Pre-Procedural Eval Section A Date of Service: 10/28/22 The patient is an INPATIENT: No The History & Physical has been completed within 30 days and I have reviewed it.: Yes Section B Chief Complaint: kidney stones, was here previously Details of Present Illness: Kidney stone was in the left kidney lower pole, now moved into proximal left ureter with mild hydro nephrosis Allergies: Allergies Allergy/AdvReac Type Severity Reaction Status Date / Time No Known Allergies Allergy Verified 10/28/22 06:29 [No Known Allergies*] Plan Diagnosis/Plan: Unchanged I have reviewed the history and physical and performed a pertinent physical examination on my patient. No changes have occurred unless specified. Plan for Cystoscopy, Left ureteroscopy, possible laser lithotripsy, possible ureteral stent. Risks discussed included but not limited to, possible need to repeat procedure if stone is not completely fragmented, Irritative voiding symptoms, bladder spasms, urgency, blood in urine. Time Spent With Patient Time: Total time managing care of this patient today ____ minutes.
--- NOTE | 2022-10-28 18:06 | P.OP_ITS ---
Operative Note Operative Note Date of Service: 10/28/22 Narrative: PreOperative Diagnosis:?? Left ureteral stone left hydronephrosis Post Operative Diagnosis:? left ureteral stone, left hydronephrosis Procedure: - cystoscopy, left ureteroscopy laser lithotripsy stent insertion, 6 [place] by multi length cm Surgeon:?Dr Damion Cramer Anesthesia:? General Indications for procedure: Kristine is a 31-year-old female who was seen initially for an obstructing ureteral stone in the distal left ureter. Initial surgical procedure was ureteroscopy; the stone migrated up into the kidney and a ureteral stent was placed. The patient presented to the ED with blood clots and pain from the stent, evaluation at that time imaging confirmed stone in the left lower pole no hydronephrosis. The ureteral stent was removed. The patient presented today with recurrence of pain imaging notes that the stone has now moved back into the proximal ureter, with hydronephrosis. Procedure: After informed consent was verified the patient was brought to the operating placed on the OR table in supine position.? General Anesthesia was administered per protocol.? The patient was placed in lithotomy position, prepped and draped in the usual sterile fashion.? Safety pause time-out and side of surgery confirmed.? Antibiotics confirmed. 2% lidocaine jelly 10 mL was passed transurethrally. A 22 [place] cystoscope was inserted transurethrally, The bladder was visualized.? Both ureteric orifices were in normal position. The cystoscope was removed. The semi rigid ureteroscope was passed into left ureter to the level of the stone in the ureter. the stone basket was used grasping the stone, and attempting to remove the stone, there was resistance in the upper portion of the distal ureter it was not able to be passed beyond this area. The stone was released from the basket. A guidewire was then passed through the ureteroscope into the kidney. The ureteroscope was removed in then replaced alongside the guidewire and the laser was then used, laser fiber 365. The stone was lasered into tiny fragments. the stone basket was replaced through the ureteroscope and the stone fragments were removed and the larger fragment was sent for analysis. The cystoscope was passed over the safety guidewire. A? 6 [place] by multi length cm stent was placed into the ureter and renal pelvis under a combination of fluoroscopy and direct visualization. the dangler/string was left attached to the stent. The bladder was emptied.? The rigid cystoscope was removed. ? The patient tolerated the procedure well and was brought to the recovery room in stable condition. Complications: None Drains: Ureteral stent as dictated above
[2022-10-28] MEDS: Phenazopyridine HCL 100 MG TABLET 200 MG PO (18:23)
[2022-10-28] MEDS: Sodium Chloride 0.45 % 1,000 ML 100 ML IVCONT (19:18)
--- NOTE | 2022-10-28 19:47 | PHA.MEDREC ---
Pharmacy Consult ? Medication Reconciliation Pharmacy has completed the medication reconciliation. Patient reported all medications. Patient had Otezla with her. Pharmacy will hold on to medications. Once order by provider will send to floor with medication label on it. Leatha Oreilly, MengD
[2022-10-28] MEDS: Acetaminophen 325 MG TABLET 650 MG PO (23:57)
[2022-10-28] MEDS: oxyCODONE HCl Immed Release 5 MG TABLET PO (23:57)
[2022-10-29] MEDS: Ketorolac Tromethamine 30 MG/ML VIAL 15 MG IVPUSH ×2 (01:31→09:45)
[2022-10-29 02:43] VITALS: BP 126/65; PULSE 73; RESP 18; TEMP 36.4; O2SAT 94
[2022-10-29] MEDS: Sodium Chloride 0.45 % 1,000 ML 100 ML IVCONT (04:05)
[2022-10-29 07:40] VITALS: BP 131/71; PULSE 59; RESP 18; TEMP 36.1; O2SAT 92
--- NOTE | 2022-10-29 08:08 | PM.DS ---
DS: Providers Provider Date of Service: 10/29/22 Date of admission: 10/28/22 18:10 Date of discharge: 10/29/22 Primary care physician: Komal Diaz MD Admitting clinician: Damion Cramer Attending physician on admission: Damion Cramer Attending physician on discharge: Damion Cramer Discharging clinician: Damion Cramer DS: Diagnosis Discharge Diagnosis (1) Urolithiasis: Status: Acute (2) Hydronephrosis: Status: Acute (3) Hydronephrosis with ureteral calculus: Start date: 10/29/22 Status: Acute DS: Summary Hospital Course Hospital Course: Kristine is a 31-year-old female who was seen initially evaluated by me on 10/22/22 for an obstructing ureteral stone in the distal left ureter.? Initial surgical procedure was ureteroscopy at that time the stone was not visualized, and a left ureteral stent was placed.? Subsequent admission, 10/25/22, the patient presented to the ED with blood clots and pain from the stent; at that time imaging, CTAP 10/25/22 confirmed stone in the left kidney lower pole no hydronephrosis.? The ureteral stent was removed.? The patient presented 10/28/22 with recurrence of pain; CTAP imaging notes that the stone has now moved back into the proximal ureter, ? With hydronephrosis. 10/28/22-S/P left ureteroscopy laser lithotripsy left ureteral stone, fragment sent for analysis, stent placed. Left ureteral stent removed at bedside on 10/29/22. Plan - Urology FU as outpatient. Status at Discharge Overall status at discharge: patient is back to baseline Time Spent with Patient Time attestation: Total time managing care of this patient today _45___ minutes. Discharge coordination time: Greater than 30 minutes Specific discharge activities: Return to usual activity Quality: Safe Use of Opioids Does Pt have an Active Cancer Diagnosis on the Problem List?: No Quality: Stroke Does the patient have a stroke diagnosis?: No Physical Exam Vital Signs: Vital Signs: Last Vital Signs Temp 97.0 F 10/29/22 07:40 Pulse 59 10/29/22 07:40 Resp 18 10/29/22 07:40 BP 131/71 10/29/22 07:40 Pulse Ox 92 10/29/22 07:40 O2 Del Method Room Air 10/29/22 07:40 O2 Flow Rate 3 10/28/22 18:32 BMI result Body Mass Index 40.9 DS: Data Data Completed and Pending Pending studies at discharge: Pending at discharge 10/28/22 18:09 Surgical [PTH] Routine Labs on day of discharge: Laboratory Results - last 24 hr 10/28/22 10/28/22 10/28/22 08:37 08:37 11:16 Urine Color Yellow Urine Appearance Clear Urine pH 6.5 Ur Specific [place] 1.020 Urine Protein Negative Urine Glucose (UA) Negative Urine Ketones Negative Urine Blood Large (3+) H Urine Nitrite Negative Ur Leukocyte Esterase Trace H Urine RBC >20 H Urine WBC 6-10 H Ur Squamous Epith Cells 0-2 Urine Bacteria None Seen Hyaline Casts 0-2 Urine Test NEGATIVE COVID-19 (JUNAID) Negative COVID-19 Clin Com See Note Imaging CT scan - abdomen: Radiologist's impression: ITS Impressions Abdomen/Pelvis CT 10/28/22 09:39 IMPRESSION: 1. Interval removal of left-sided double-J nephroureteral stent. Mild left-sided hydroureteronephrosis secondary to calculus along the left proximal ureter measuring 4 mm with mild periureteral stranding. 2. Urinary bladder is decompressed with dependent air within the urinary bladder lumen, likely iatrogenic from recent double-J nephroureteral catheter. Discharge Plan Discharge Anticipated Discharge Date/Time: 10/29/22 10:39 Patient Disposition: Home, Self-Care Referrals: Komal Diaz MD [Primary Care Provider] - 1 Week Discharge Medications: New naproxen 375 mg tablet,delayed release (DR/EC) 375 mg PO BID Qty: 20 0RF oxycodone-acetaminophen [Percocet] 5-325 mg tablet 1 tab PO Q8H PRN (Reason: pain (scale score 7-10)) Qty: 4 0RF Rx Instructions: Partial Fill upon patient request. Continued escitalopram oxalate 20 mg tablet 1 tab PO DAILY Otezla 30 mg tablet 1 tab PO BID Discharge Orders: Discharge Order (Routine); Ordered 10/29/22 Ordered By: Damion Cramer Diet: Advance to usual diet Activity on Discharge: As tolerated Stand Alone Forms: Patient Portal Discharge page Care Plan Goals: Increase fluid intake, up to 2 liters, avoid soda, limit caffeine, low sodium diet Health Concerns: diet modification, decrease risk for kidney stone forming Plan of Treatment: Increase fluid intake, up to 2 liters, avoid soda, limit caffeine, low sodium diet, Follow-up in outpatient urology with Dr. Lundberg in 14-21 days Assessment: Stable for discharge Discharge Date/Time: 10/29/22 11:33
--- NOTE | 2022-10-29 08:56 | MHC.CM.PN ---
PT WILL DC HOME TODAY WITH NO SERVICES PT TO ARRANGE TRANSPORT
--- NOTE | 2022-10-29 12:46 | HO.POSTANES ---
Post Anesthesia Evaluation Post Anesthesia Evaluation Vital Signs: Vital Signs Temp Pulse Resp BP Pulse Ox O2 Del Method 10/29/22 07:40 97.0 F 59 18 131/71 92 Room Air 10/29/22 02:43 97.6 F 73 18 126/65 94 Room Air Anesthesia: General Mental Status: Awake Pain Control: Satisfactory Nausea/Vomiting: None Hydration: Adequate Anesthesia-Related Issues: No Anes. Related Issues
[2022-11-04 17:13] LABS: Stone Source LEFT KIDNEY STONE
== END 2022-10-29 11:33 | disposition home or self-care (01) ==
LOC: HO.ED 11:21 → HO.SSS 15:50 → HO.SSSA 18:12 → HO.S3 18:14
PROVIDERS: Anesthesiology; Admitting Provider Urology; Emergency Provider Emergency Medicine; PCP Internal Medicine; Visit Provider Urology
DX: N13.2 Hydronephrosis with renal and ureteral calculous obstruction (principal); R10.9 Unspecified abdominal pain; Z20.822 Contact with and (suspected) exposure to COVID-19
CPT/HCPCS: 52356; 36415; 74176; 80053; 81001; 81025; 82365; 85025; 87086; 87635; 88300; 96361; 96374; 96375; 96376; 99221; 99285; C1769; C2617; J0690; J1100; J1170; J1885; J2250; J2370; J2405; J3010; Q9967

== ENCOUNTER 2022-11-10 14:07 | Outpatient (REF) | payer OTHER, SELFPAY ==
--- NOTE | ~2022-11-10 | US_ITS ---
EXAMINATION: US RETROPERITONEAL LIMITED (RENAL ONLY) CLINICAL INFORMATION: Unspecified abdominal pain. COMPARISON: CT abdomen and pelvis without contrast 10/28/2022. Ultrasound retroperitoneal limited (renal only) 10/22/2022. Ultrasound abdomen limited 03/16/2021. TECHNIQUE: Real-time imaging of the kidneys. FINDINGS: RIGHT KIDNEY: 11.2 x 4.4 x 5.8 cm (SAG x AP x TRV). The kidney is normal in size, contour, and echogenicity. Renal cortical thickness is normal. No calculi or focal parenchymal lesions. No hydronephrosis. LEFT KIDNEY: 10.5 x 4.5 x 5.2 cm (SAG x AP x TRV). The kidney is normal in size, contour, and echogenicity. Renal cortical thickness is normal. No focal parenchymal lesions. There is left pelviectasis, without juan luis hydronephrosis. A 7 mm proximal left ureteric calculus is questioned. US/US renal BI IMPRESSION: A 7 mm proximal left ureteric calculus is questioned. No further urinary calculus is seen on this examination. There is mild left renal pelviectasis. No juan luis hydronephrosis is noted bilaterally.
== END 2022-11-10 14:08 | disposition home or self-care (01) ==
LOC: HO.US 14:07
PROVIDERS: Visit Provider Nurse Practitioner Family
DX: R10.9 Unspecified abdominal pain (principal); N20.0 Calculus of kidney
CPT/HCPCS: 76775

== ENCOUNTER 2023-01-14 13:17 | Outpatient (REF) | payer OTHER, SELFPAY ==
[2023-01-14 15:19] LABS: Appearance Urine Clear; Color Urine Yellow; Glucose Urine UA Negative (Negative); Leukocyte Esterase Urine Moderate (2+) (Negative); Nitrite Urine Negative (Negative); PH 6.5 (5.0-9.0); UMIC TRIGGER UA YES; Urine Blood Moderate (2+) (Negative); Urine Ketones Negative (Negative); Urine Protein Negative (Neg-Trace)
[2023-01-14 15:42] LABS: Bacteria Urine Trace (None Seen); Hyaline Casts Urine 0-2 /LPF (0-2); RBC Urine 0-2 /HPF (0-2); WBC Urine 0-5 /HPF (0-5)
== END 2023-01-14 13:18 | disposition home or self-care (01) ==
LOC: HO.LAB 13:17
PROVIDERS: PCP Internal Medicine; Visit Provider Pediatrics Pediatric Gastroenterology
DX: R10.9 Unspecified abdominal pain (principal)
CPT/HCPCS: 81001

== ENCOUNTER 2023-01-21 13:46 | Outpatient (REF) | payer OTHER, SELFPAY ==
--- NOTE | ~2023-01-21 | US_ITS ---
EXAMINATION: US RETROPERITONEAL LIMITED (RENAL ONLY) CLINICAL INFORMATION: Unspecified abdominal pain. COMPARISON: Renal ultrasound 11/10/2022 and 10/22/2022. CT abdomen and pelvis 10/28/2022. X-ray KUB 03/19/2019. TECHNIQUE: Real-time imaging of the kidneys. FINDINGS: RIGHT KIDNEY: 11.4 x 4.3 x 5.1 cm (SAG x AP x TRV). The kidney is normal in size, contour, and echogenicity. Renal cortical thickness is normal. No calculi or focal parenchymal lesions. No hydronephrosis. LEFT KIDNEY: 11.6 x 5.6 x 5.3 cm (SAG x AP x TRV). The kidney is normal in size, contour, and echogenicity. Renal cortical thickness is normal. No calculi or focal parenchymal lesions. No hydronephrosis. No obstructing ureteral stone seen. Mild pelvic fullness again noted. US/US renal BI IMPRESSION: No obstructive stone seen on the current study.
== END 2023-01-21 13:47 | disposition home or self-care (01) ==
LOC: HO.US 13:46
PROVIDERS: PCP Internal Medicine; Visit Provider Urology
DX: R10.9 Unspecified abdominal pain (principal)
CPT/HCPCS: 76775

== ENCOUNTER 2023-01-26 10:59 | Emergency (ER) | payer OTHER, SELFPAY ==
--- NOTE | ~2023-01-26 | US_ITS ---
EXAMINATION: US RETROPERITONEAL LIMITED (RENAL ONLY) CLINICAL INFORMATION: Left flank pain. COMPARISON: Renal ultrasound from 01/04/202009/2022 TECHNIQUE: Sonographic imaging of the kidneys is performed. FINDINGS: RIGHT KIDNEY: 11.3 x 4.3 x 5.4 cm (SAG x AP x TRV). The kidney is normal in size, contour, and echogenicity. Renal cortical thickness is normal. No calculi or focal parenchymal lesions. No hydronephrosis. LEFT KIDNEY: 11.2 x 4.5 x 5.5 cm (SAG x AP x TRV). The kidney is normal in size, contour, and echogenicity. Renal cortical thickness is normal. No calculi or focal parenchymal lesions. No hydronephrosis. OTHER: The partially visualized liver is hyperechoic; this suggests likelihood of steatosis. US/US renal BI IMPRESSION: No acute abnormalities compared to 01/21/2023. No evidence of renal stones, hydronephrosis or perinephric fluid collection.
[2023-01-26 11:05] VITALS: BP 146/95; PULSE 80; RESP 16; TEMP 36.6; O2SAT 98; BMI 32.7
--- NOTE | 2023-01-26 11:05 | ED.ABDPAIN ---
HPI - Abdominal Pain General Chief Complaint: Urogenital-Female Stated Complaint: symptoms of kidney stones Time Seen by Provider: 01/26/23 11:13 Source: patient Mode of arrival: ambulatory Limitations: no limitations History of Present Illness MD elicited complaint: flank pain Pertinent past history: kidney stones Onset (ago): month(s) (1) Pain Consistency: intermittent Location: L flank Severity: moderate Pain scale (0-10): 5 Quality: stabbing and sharp Radiation: LUQ and LLQ Migration to: no migration Exacerbating factors: nothing Relieving factors: nothing Context: history of similar episodes Associated symptoms: nausea, chills and constipation Treatments prior to arrival: NSAIDs Related Data Home Medications Medication Instructions Recorded Confirmed apremilast 30 mg tablet (Otezla) 1 tab PO BID 10/19/22 10/28/22 escitalopram oxalate 20 mg tablet 1 tab PO DAILY 10/19/22 10/28/22 Previous Rx's Medication Instructions Recorded naproxen 375 mg tablet,delayed 375 mg PO BID #20 tabs 10/29/22 release oxycodone-acetaminophen 5 mg-325 1 tab PO Q8H PRN pain (scale score 10/29/22 mg tablet (Percocet) 7-10) #4 tabs sulfamethoxazole 800 1 tab PO BID 5 days #10 tabs 11/04/22 mg-trimethoprim 160 mg tablet (Bactrim DS) nitrofurantoin 100 mg PO BID #6 caps 01/14/23 monohydrate/macrocrystals 100 mg capsule (Macrobid) gabapentin 300 mg capsule 300 mg PO TID #14 caps 01/26/23 meloxicam 15 mg tablet 15 mg PO DAILY #14 tabs 01/26/23 Allergies Allergy/AdvReac Type Severity Reaction Status Date / Time No Known Allergies Allergy Verified 10/28/22 06:29 [No Known Allergies*] Review of Systems Review of Systems CONSTITUTIONAL: Denies weight loss, fever and chills. HEENT: Denies changes in vision and hearing. RESPIRATORY: Denies SOB and cough. CV: Denies palpitations no CP. GI: Denies abdominal pain, nausea, vomiting and diarrhea. : + dysuria and urinary frequency. MSK: Denies myalgia and joint pain. SKIN: Denies rash and pruritus. NEUROLOGICAL: Denies headache and syncope. PSYCHIATRIC: Denies recent changes in mood. Denies anxiety and depression. All other ROS are negative unless in HPI PMFSH Past Medical History Medical History IBS (irritable bowel syndrome) Pyelonephritis Syncope Ureteral stent present UTI (urinary tract infection) Vaso vagal episode Surgical History No pertinent past surgical history Social History Social History Household Members: Spouse Household Members Other:: 2 Housing: House Do you presently have visiting nurse or other home services: No Alcohol intake: never Patient Tobacco Use Status: Never used Tobacco Smoked in Last 30 Days: No e-Cigarette/Vaping Use: Never Used Second Hand Smoke Exposure: No Use of substances other than those prescribed or required for medical reasons: Yes Substance Use Type: Marijuana Advance Directives: Yes Advance Directives on File: Yes Advance Directives Date on File: 10/25/22 service: No Current occupational status: unemployed Physical Exam ED Vital Signs: Vital Signs - 24 hr 01/26/23 11:05 Temperature 97.8 F Pulse Rate 80 Respiratory Rate 16 Blood Pressure 146/95 H Pulse Oximetry 98 Oxygen Delivery Method Room Air BMI result Body Mass Index 32.7 GEN: Well developed, no acute distress, alert, oriented HEENT: Normocephalic, atraumatic, normal external ears, nose appears normal, no oropharyngeal edema or exudates Eyes: Normal to appearance Neck: Supple, no lymphadenopathy Respiratory: Talks in complete sentences, no respiratory distress, clear to auscultation bilaterally Cardiovascular: Regular rate and rhythm, no murmurs rubs or gallops Abdomen: Soft, nontender, nondistended, no guarding, no rebound Back: No CVA tenderness Extremities: No clubbing cyanosis or edema Neurologic: No focal neurologic deficits, cranial nerves 2-12 intact, strength is 5/5 bilaterally Skin: No rash Course Course Course Narrative: RME: 32-year-old female the past medical history of renal stones presenting to the ED complaining of left flank pain and chills x 3 weeks, admits symptoms of worsening. Admits had outpatient ultrasound on Tuesday which is unremarkable, however pain worsened. Denies nausea, vomiting, fever labs, UA, Renal US ordered Full HPI, ROS and PE to be performed by primary ED provider. Reevaluation(s) Reevaluation #1: I re-evaluated the patient. She appears to do well. She has no significant pain at this time. Discussed results of the ultrasound which showed no evidence of stones or hydronephrosis. Her urine shows no evidence UTI or hematuria. At this point, cause for pain is not entirely clear but it does not appear to be a kidney stone pyelonephritis. Her belly exam was benign. Doubt acute diverticulitis, colitis, or other surgical etiology of her symptoms. She requested a CT scan. At this time, I do not believe this is warranted and would expose her to undue radiation. I did discuss that if her pain comes continues to progress that she could certainly come back and be re-evaluated. At that time, the provider and may agree with doing a CT scan at that time. She does have a follow-up appointment with her urologist tomorrow. Time: 14:23 Medical Decision Making Medical Decision Making [facility] Narrative: 32-year-old female with history of kidney stones followed by Dr. Giron presents with left flank pain intermittently for 1 month. Examination is benign. She does have some urinary complaints. Differential diagnosis could include nephrolithiasis, ureterolithiasis, pyelonephritis, IBD, IBS, musculoskeletal, anxiety. Will obtain an ultrasound to rule out hydronephrosis and possible stone as an etiology for symptoms. Will obtain urinalysis to rule urinary tract infection or check for hematuria. Will provide patient with analgesia, IV fluids and antiemetics. Will evaluate patient frequently to assess for progression in her symptoms. Differential Diagnosis Differential Diagnoses: The differential diagnosis associated with the presentation includes (See above) Left flank pain Lab Data [facility] Lab Attestation statement: I reviewed the patient's lab results. 01/26/23 11:23 01/26/23 11:23 Labs: Lab Results 01/26/23 01/26/23 01/26/23 Range/Units 11:10 11:10 11:23 WBC (4.8-10.8) X10*3/uL RBC (4.20-5.50) X10*6/uL Hgb (12.0-16.0) g/dl Hct (37.0-47.0) % MCV (80.0-98.0) fL MCH (27.0-33.0) pg MCHC (31.0-35.0) g/dl RDW (11.0-16.0) % Plt Count (160-400) X10*3/uL MPV (9.4-12.3) fL Immature Gran % (Auto) (0.0-0.4) % Neut % (Auto) (45-73) % Lymph % (Auto) (20-40) % Beadle % (Auto) (2-11) % Eos % (Auto) (0-4) % Baso % (Auto) (0-2) % Lymph # (Auto) (1.2-4.9) X10*3/uL Beadle # (Auto) (0.1-1.2) X10*3/uL Eos # (Auto) (0.0-0.4) X10*3/uL Baso # (Auto) (0.0-0.2) X10*3/uL Abs Immat Gran (auto) (0.00-0.03) X10*3/uL Absolute Neuts (auto) (2.0-8.3) x10*3/uL Absolute Nucleated RBC (0.0-0.012) X10*3/uL Nucleated RBC % (auto) (0.0-0.2) /100WBC Sodium 140 (135-145) mmol/L Potassium 3.9 (3.3-5.1) mmol/L Chloride 107 (96-108) mmol/L Carbon Dioxide 25 (22-29) mmol/L Anion Gap 12 (12-20) BUN 9 (9-16) mg/dL Creatinine 0.71 (0.5-1.4) mg/dL Estim Creat Clear Calc 137.5 Estimated GFR > 60 Random Glucose 88 (60-115) mg/dL Calcium 9.6 D (8.4-10.2) mg/dL Magnesium 2.1 (1.6-2.6) mg/dL Total Bilirubin 0.4 (0.0-1.0) mg/dL Direct Bilirubin 0.2 (0.0-0.5) mg/dL AST 16 (5-31) U/L ALT 12 (0-31) U/L Alkaline Phosphatase 105 (39-117) U/L Total Protein 7.3 (6.5-8.0) g/dL Albumin 4.0 (3.5-5.0) g/dL Lipase 16 (8-78) U/L Urine Color Yellow Urine Appearance Clear Urine pH 6.5 (5.0-9.0) Ur Specific [place] <= 1.005 (1.005-1.025) Urine Protein Negative (Neg-Trace) mg/dL Urine Glucose (UA) Negative (Negative) mg/dL Urine Ketones Negative (Negative) mg/dL Urine Blood Negative (Negative) Urine Nitrite Negative (Negative) Ur Leukocyte Esterase Negative (Negative) Urine Test NEGATIVE (NEGATIVE) 01/26/23 Range/Units 11:23 WBC 7.0 (4.8-10.8) X10*3/uL RBC 5.44 (4.20-5.50) X10*6/uL Hgb 14.5 (12.0-16.0) g/dl Hct 44.4 (37.0-47.0) % MCV 81.6 (80.0-98.0) fL MCH 26.7 L (27.0-33.0) pg MCHC 32.7 (31.0-35.0) g/dl RDW 13.2 (11.0-16.0) % Plt Count 213 (160-400) X10*3/uL MPV 9.6 (9.4-12.3) fL Immature Gran % (Auto) 0.4 (0.0-0.4) % Neut % (Auto) 60.9 (45-73) % Lymph % (Auto) 27.8 (20-40) % Beadle % (Auto) 8.9 (2-11) % Eos % (Auto) 1.3 (0-4) % Baso % (Auto) 0.7 (0-2) % Lymph # (Auto) 1.9 (1.2-4.9) X10*3/uL Beadle # (Auto) 0.6 (0.1-1.2) X10*3/uL Eos # (Auto) 0.1 (0.0-0.4) X10*3/uL Baso # (Auto) 0.1 (0.0-0.2) X10*3/uL Abs Immat Gran (auto) 0.03 (0.00-0.03) X10*3/uL Absolute Neuts (auto) 4.2 (2.0-8.3) x10*3/uL Absolute Nucleated RBC 0.000 (0.0-0.012) X10*3/uL Nucleated RBC % (auto) 0.0 (0.0-0.2) /100WBC Sodium (135-145) mmol/L Potassium (3.3-5.1) mmol/L Chloride (96-108) mmol/L Carbon Dioxide (22-29) mmol/L Anion Gap (12-20) BUN (9-16) mg/dL Creatinine (0.5-1.4) mg/dL Estim Creat Clear Calc Estimated GFR Random Glucose (60-115) mg/dL Calcium (8.4-10.2) mg/dL Magnesium (1.6-2.6) mg/dL Total Bilirubin (0.0-1.0) mg/dL Direct Bilirubin (0.0-0.5) mg/dL AST (5-31) U/L ALT (0-31) U/L Alkaline Phosphatase (39-117) U/L Total Protein (6.5-8.0) g/dL Albumin (3.5-5.0) g/dL Lipase (8-78) U/L Urine Color Urine Appearance Urine pH (5.0-9.0) Ur Specific Leeds (1.005-1.025) Urine Protein (Neg-Trace) mg/dL Urine Glucose (UA) (Negative) mg/dL Urine Ketones (Negative) mg/dL Urine Blood (Negative) Urine Nitrite (Negative) Ur Leukocyte Esterase (Negative) Urine Test (NEGATIVE) Independent Interpretation I performed an independent interpretation of an: Ultrasound (Renal: No acute findings) Radiology Impression Discussion of test interpretation with radiology: I have reviewed the radiologist's reading. Radiologist Impression: US/US renal BI IMPRESSION: No acute abnormalities compared to 01/21/2023. No evidence of renal stones, hydronephrosis or perinephric fluid collection. Dictated By: Eugene Pillai MD Signed By: <Electronically signed by Eugene Pillai MD in OV> 01/26/23 1312 DD/ 1214 TD/TT:? Video Production Specialist: PD Independent Historian Clinical information obtained from an independent historian. History obtained from or confirmed by: Parent Prescription Management I considered prescription management with: Pain Medication and Antibiotic Medications Administered Discontinued Medications Generic Name Dose Route Start Last Admin Trade Name Freq PRN Reason Stop Dose Admin Sodium Chloride 1,000 mls @ 999 mls/hr 01/26/23 11:30 01/26/23 13:20 Ns IV 01/26/23 12:30 Infused .Q1H1M BENJAMIN Infusion Ketorolac Tromethamine 15 mg 01/26/23 11:28 01/26/23 11:54 Ketorolac Tromethamine 15 Mg/Ml Vial IVPUSH 01/26/23 11:29 15 mg ONCE ONE Administration Morphine Sulfate 4 mg 01/26/23 12:48 01/26/23 12:51 Morphine Sulfate 4 Mg/Ml Cartridge IVPUSH 01/26/23 12:49 4 mg ONCE ONE Administration Protocol Ondansetron HCl 4 mg 01/26/23 11:28 01/26/23 11:54 Ondansetron Hcl 4 Mg/2 Ml Vial IVPUSH 01/26/23 11:29 4 mg ONCE ONE Administration Discharge Plan Discharge Clinical Impression: Acute flank pain Patient Disposition: Home, Self-Care Instructions: Flank Pain (ED) Prescriptions: New meloxicam 15 mg tablet 15 mg PO DAILY Qty: 14 0RF gabapentin 300 mg capsule 300 mg PO TID Qty: 14 0RF No Action sulfamethoxazole-trimethoprim [Bactrim DS] 800-160 mg tablet 1 tab PO BID 5 Days Qty: 10 0RF nitrofurantoin monohyd/m-cryst [Macrobid] 100 mg capsule 100 mg PO BID Qty: 6 0RF Rx Instructions: must administer with a meal/food escitalopram oxalate 20 mg tablet 1 tab PO DAILY Otezla 30 mg tablet 1 tab PO BID naproxen 375 mg tablet,delayed release (DR/EC) 375 mg PO BID Qty: 20 0RF oxycodone-acetaminophen [Percocet] 5-325 mg tablet 1 tab PO Q8H PRN (Reason: pain (scale score 7-10)) Qty: 4 0RF Rx Instructions: Partial Fill upon patient request. Referrals: Damion Cramer MD [Physician] - 1 day
[2023-01-26 11:18] LABS: Appearance Urine Clear; Color Urine Yellow; Glucose Urine UA Negative (Negative); Leukocyte Esterase Urine Negative (Negative); Nitrite Urine Negative (Negative); PH 6.5 (5.0-9.0); Specific Gravity - Urine <= 1.005 (1.005-1.025); Urine Blood Negative (Negative); Urine Ketones Negative (Negative); Urine Protein Negative (Neg-Trace)
--- NOTE | 2023-01-26 11:26 | PC.NURSE ---
Pt arrived ambulatory with mom at bedside. Pt reporting she has been having symtpoms for 3 weeks, went for outpt U/S which did not show stones, she does have a hx of having kidney stones, at this time, she is having urinary symptoms, nausea, and Flank pain. Pt afebrile at this time
[2023-01-26 11:29] LABS: MANUAL DIFF FLAG NO
[2023-01-26 11:30] LABS: Basophils Absolute Auto 0.1 X10*3/uL (0.0-0.2); Basophils Percent Auto 0.7 % (0-2); Eosinophils Absolute Auto 0.1 X10*3/uL (0.0-0.4); Eosinophils Percent Auto 1.3 % (0-4); Hematocrit 44.4 % (37.0-47.0); Hemoglobin 14.5 g/dl (12.0-16.0); Imm Gran Abs Auto 0.03 X10*3/uL (0.00-0.03); Imm Gran Pct Auto 0.4 % (0.0-0.4); Lymphocytes Absolute Auto 1.9 X10*3/uL (1.2-4.9); Lymphocytes Percent Auto 27.8 % (20-40); Mean Corpuscular HGB Conc 32.7 g/dl (31.0-35.0); Mean Corpuscular Hemoglobin 26.7 pg (27.0-33.0); Mean Corpuscular Volume 81.6 fL (80.0-98.0); Mean Platelet Volume 9.6 fL (9.4-12.3); Monocytes Absolute Auto 0.6 X10*3/uL (0.1-1.2); Monocytes Percent Auto 8.9 % (2-11); Neutrophils Absolute Auto 4.2 x10*3/uL (2.0-8.3); Neutrophils Percent Auto 60.9 % (45-73); Platelet Count 213 X10*3/uL (160-400); Red Blood Count 5.44 X10*6/uL (4.20-5.50); Red Cell Distribution Width 13.2 % (11.0-16.0)
[2023-01-26 11:48] LABS: Alanine Aminotransferase 12 U/L (0-31); Alkaline Phosphatase 105 U/L (39-117); Anion Gap 12 (12-20); Aspartate Amino Transferase 16 U/L (5-31); Bilirubin Direct 0.2 mg/dL (0.0-0.5); Bilirubin Total 0.4 mg/dL (0.0-1.0); Blood Urea Nitrogen 9 mg/dL (9-16); Calcium 9.6 mg/dL (8.4-10.2); Carbon Dioxide 25 mmol/L (22-29); Chloride 107 mmol/L (96-108); Creatinine Clr Calc Pharmacy 137.5; Estimated Glomerular Filt Rate > 60; Glucose Random 88 mg/dL (60-115); Lipase 16 U/L (8-78); Magnesium 2.1 mg/dL (1.6-2.6); Potassium 3.9 mmol/L (3.3-5.1); Sodium 140 mmol/L (135-145); Total Protein 7.3 g/dL (6.5-8.0)
[2023-01-26] MEDS: ondansetron HCL 4 MG/2 ML VIAL IVPUSH (11:54)
[2023-01-26] MEDS: Ketorolac Tromethamine 15 MG/ML VIAL IVPUSH (11:54)
[2023-01-26] MEDS: 0.9 % Sodium Chloride 1,000 ML 999 ML IV (11:54)
[2023-01-26 11:58] LABS: UPreg QC Valid YES; Urine Pregnancy NEGATIVE (NEGATIVE)
[2023-01-26] MEDS: Morphine Sulfate 4 MG/ML CARTRIDGE IVPUSH (12:51)
[2023-01-26 14:40] VITALS: BP 127/78; PULSE 78; RESP 15; TEMP 36.6; O2SAT 97
== END 2023-01-26 14:42 | disposition home or self-care (01) ==
PROVIDERS: Physician Assistant; Emergency Provider Emergency Medicine; PCP Internal Medicine
DX: R10.32 Left lower quadrant pain (principal); R10.12 Left upper quadrant pain; Z79.899 Other long term (current) drug therapy
CPT/HCPCS: 36415; 76775; 80048; 80076; 81003; 81025; 83690; 83735; 85025; 96361; 96374; 96375; 99284; 99285; J1885; J2270; J2405

== ENCOUNTER → 2023-01-27 11:46 | Outpatient (BNVA) | payer OTHER, SELFPAY | PROVIDERS: PCP Internal Medicine; Visit Provider Urology | DX: N23 Unspecified renal colic (principal); Z87.442 Personal history of urinary calculi | CPT/HCPCS: 99212 ==

== ENCOUNTER 2023-06-15 10:57 | Emergency (ER) | payer OTHER, SELFPAY ==
--- NOTE | ~2023-06-15 | US_ITS ---
EXAMINATION: US RETROPERITONEAL LIMITED (RENAL ONLY) CLINICAL INFORMATION: Left flank pain. COMPARISON: 01/18/2023 TECHNIQUE: Real-time sonographic evaluation FINDINGS: RIGHT KIDNEY: 10.6 x 4.3 x 4.5 cm (SAG x AP x TRV). The kidney is normal in size, contour, and echogenicity. Renal cortical thickness is normal. No calculi or focal parenchymal lesions. No hydronephrosis. LEFT KIDNEY: 12.1 x 4.8 x 5.6 cm (SAG x AP x TRV). The kidney is normal in size, contour, and echogenicity. Renal cortical thickness is normal. No calculi or focal parenchymal lesions. No hydronephrosis. US/US renal BI IMPRESSION: No hydronephrosis or mass..
--- NOTE | 2023-06-15 11:10 | ED_ITS ---
HPI - Abdominal Pain General Chief Complaint: Abdominal Pain Stated Complaint: Back & abdominal pain Time Seen by Provider: 06/15/23 11:30 Source: patient and family (dad) Mode of arrival: ambulatory Limitations: no limitations History of Present Illness HPI narrative: 32-year-old female with pmhx significant for bulging disc, nephrolithiasis requiring lithotripsy, and IBS presents to the ED today with 3 months of intermittent left flank pain, worsening yesterday. Pain radiates into her lower left quadrant and groin area. Rates pain intensity 6/10 at present. Reports taking meloxicam and baclofen at 7:00 a.m. this morning without relief of pain. Endorses nausea without vomiting and dysuria upon urinating this morning. States she last had a kidney stone 8 mo ago and that this discomfort feels similar. Last BM was this morning and was normal. Denies fever, chills, headache, dizziness, chest pain, SOB, hematuria, constipation, diarrhea, hematuria, or vaginal discharge. Denies concern for STI. Denies concern for . Denies previous abdominal surgeries. Related Data Home Medications Medication Instructions Recorded Confirmed apremilast 30 mg tablet (Otezla) 1 tab PO BID 10/19/22 10/28/22 escitalopram oxalate 20 mg tablet 1 tab PO DAILY 10/19/22 10/28/22 Previous Rx's Medication Instructions Recorded naproxen 375 mg tablet,delayed 375 mg PO BID #20 tabs 10/29/22 release oxycodone-acetaminophen 5 mg-325 1 tab PO Q8H PRN pain (scale score 10/29/22 mg tablet (Percocet) 7-10) #4 tabs sulfamethoxazole 800 1 tab PO BID 5 days #10 tabs 11/04/22 mg-trimethoprim 160 mg tablet (Bactrim DS) nitrofurantoin 100 mg PO BID #6 caps 01/14/23 monohydrate/macrocrystals 100 mg capsule (Macrobid) gabapentin 300 mg capsule 300 mg PO TID #14 caps 01/26/23 meloxicam 15 mg tablet 15 mg PO DAILY #14 tabs 01/26/23 tamsulosin 0.4 mg capsule (Flomax) 0.4 mg PO BEDTIME #30 caps 02/24/23 naproxen 500 mg tablet 500 mg PO Q8H PRN pain (scale 06/15/23 score 4-6) #30 tabs tamsulosin 0.4 mg capsule (Flomax) 0.4 mg PO BEDTIME 7 days #7 caps 06/15/23 Allergies Allergy/AdvReac Type Severity Reaction Status Date / Time No Known Allergies Allergy Verified 06/15/23 11:13 [No Known Allergies*] Review of Systems Review of Systems Constitutional: No fever, chills, fatigue, night sweats, weight changes ENT/Mouth: No ear pain, hearing loss, nasal congestion, sinus pain, rhinorrhea, sore throat Eyes: No eye pain, swelling, redness, vision changes, discharge Cardio: No chest pain, palpitations, MANJARREZ, orthopnea, peripheral edema Pulm: No SOB, cough, sputum, wheezing, dyspnea, hemoptysis GI: No nausea, vomiting, hematemesis, abdominal pain, diarrhea, constipation, hematochezia, melena : No irregular bleeding, +dysuria, No frequency, urgency, hesitancy, hematuria, + left flank pain, No urinary flow changes, urinary incontinence or retention MSK: No back pain, neck pain, joint pain, myalgias Skin: No lesions, rashes Neuro: No weakness, numbness, paresthesias, LOC, dizziness, headache All other systems reviewed and are negative. [facility] Past Medical History Attestation statement: The following information was validated with the patient. Source: old records reviewed and nursing notes reviewed Medical History Ureteral stent present UTI (urinary tract infection) Pyelonephritis Syncope Vaso vagal episode IBS (irritable bowel syndrome) Surgical History No pertinent past surgical history Social History Social History Household Members: Spouse Household Members Other:: 2 Housing: House Do you presently have visiting nurse or other home services: No Alcohol intake: never Patient Tobacco Use Status: Never used Tobacco Smoked in Last 30 Days: No e-Cigarette/Vaping Use: Never Used Second Hand Smoke Exposure: No Use of substances other than those prescribed or required for medical reasons: Yes Substance Use Type: Marijuana Substance Use Frequency: Weekly Substance Use Frequency Other:: pain relief, hx bulging disc Advance Directives: Yes Advance Directives on File: Yes Advance Directives Date on File: 10/25/22 Patient : No service: No Current occupational status: unemployed Physical Exam ED Vital Signs: Vital Signs - 24 hr 06/15/23 11:12 06/15/23 13:34 Temperature 98.3 F Pulse Rate 90 Respiratory Rate 16 16 Blood Pressure 138/92 H Pulse Oximetry 97 Oxygen Delivery Method Room Air BMI result Body Mass Index 38.0 Vital signs stable Const General: cooperative, healthy appearing, comfortable, no acute distress, alert and awake; No diaphoretic Orientation/consciousness: patient oriented x3 Limitations: no limitations HENMT Head: Yes normal to inspection Ears: hearing grossly normal bilaterally General nose exam: Normal external nose present Eyes General: appearance normal, both eyes and all related structures Conjunctivae: conjunctivae normal Sclerae: sclerae normal Pupils: Equal, round and reactive pupils present Resp Effort & Inspection: normal respiratory effort Auscultation: clear to auscultation bilaterally Cardio Rate: regular rate Rhythm: regular rhythm Peripheral pulses: radial pulses present GI Other: Abdomen soft, nondistended, mildly tender to palpation of the left lower quadrant without rebound tenderness or guarding. Normoactive bowel sounds x4. No palpable inguinal hernia/ mass Inspection: Yes normal to inspection Other: + left CVAT Back/Spine/Pelvis Other: No midline spinous tenderness. No paraspinal muscle tenderness bilaterally. No step-off deformity. Skin General skin exam: no rashes or lesions noted Neuro General: patient oriented x3, gait normal, moves all extremities and deep tendon reflexes 2+ bilaterally Cranial nerves: Yes CN's II-XII intact bilaterally and Yes Equal, round and reactive pupils present Extrem General: Yes normal to inspection, Yes full ROM and Yes capillary refill normal Course Course Course Narrative: RME: 32-year-old female the past medical history of renal stones, bulging disc, presenting to the ED complaining of left flank pain radiating to pelvic region & down LLE x last night. Admits to urinary hesitancy this AM. denies fever, chills, hematuria. Had colonoscopy on Tuesday. denies incontinence/retention Labs, UA, Renal US ordered Full HPI, ROS and PE to be performed by primary ED provider. Reevaluation(s) Reevaluation #1: 1203-- CBC without leukocytosis or anemia. Chemistry without acute electrolyte abnormalities requiring intervention. Lipase WNL. Urine negative for however shows moderate amount of blood and rbc's indicative of possible renal stone. There is no evidence of a urinary tract infection. Awaiting renal ultrasound. > Tylenol and IV fluids ordered. 1316-- US of b/l kidneys without evidence of stones or hydronephrosis > patient's symptoms are consistent with renal colic. There is no evidence of obstruction on imaging or labs. I discussed lab, urine, and imaging results with patient. She is hesitant about going home as she was admitted for renal stones in the past. I do not feel as though admission is warranted at this time as there is no evidence of obstruction or decreased renal function. Will discharge patient home with naproxen and tamsulosin. Advised her to follow-up with her urologist, Dr. magali Almazan this week. Discussed strict return precautions. All questions answered at this time. Patient is stable for discharge. Medical Decision Making Medical Decision Making [facility] Narrative: 32-year-old female with pmhx significant for bulging disc, nephrolithiasis requiring lithotripsy, and IBS presents to the ED today with 3 months of intermittent left flank pain, worsening yesterday. VSS. Abdomen soft, nondistended, mildly tender to palpation of the left lower quadrant without rebound tenderness or guarding. There is no palpable mass or inguinal hernia. Normoactive bs x4. + Left CVAT. No midline spinous or paraspinal muscle tenderness bilaterally. No step-off deformity. Clinical concern for urinary tract infection, renal colic, nephrolithiasis, hydronephrosis, , ectopic , hernia. Unlikely pyelonephritis, diverticulitis/diverticulosis, SBO, ovarian torsion, ovarian cyst rupture, acute abdomen. Plan at this time is basic labs, urinalysis, urine , renal ultrasound and re-evaluation. Differential Diagnosis Differential Diagnoses: The differential diagnosis associated with the presentation includes As above. Admission/Observation Not indicated. Lab Data [facility] Lab Attestation statement: I reviewed the patient's lab results. As above. 06/15/23 11:21 06/15/23 11:21 Labs: Lab Results 06/15/23 Range/Units 11:21 WBC 8.3 (4.8-10.8) X10*3/uL RBC 5.25 (4.20-5.50) X10*6/uL Hgb 14.7 (12.0-16.0) g/dl Hct 43.5 (37.0-47.0) % MCV 82.9 (80.0-98.0) fL MCH 28.0 (27.0-33.0) pg MCHC 33.8 (31.0-35.0) g/dl RDW 13.3 (11.0-16.0) % Plt Count 239 (160-400) X10*3/uL MPV 9.9 (9.4-12.3) fL Immature Gran % (Auto) 0.5 H (0.0-0.4) % Neut % (Auto) 65.1 (45-73) % Lymph % (Auto) 23.9 (20-40) % Deuel % (Auto) 8.7 (2-11) % Eos % (Auto) 1.3 (0-4) % Baso % (Auto) 0.5 (0-2) % Lymph # (Auto) 2.0 (1.2-4.9) X10*3/uL Deuel # (Auto) 0.7 (0.1-1.2) X10*3/uL Eos # (Auto) 0.1 (0.0-0.4) X10*3/uL Baso # (Auto) 0.0 (0.0-0.2) X10*3/uL Abs Immat Gran (auto) 0.04 H (0.00-0.03) X10*3/uL Absolute Neuts (auto) 5.4 (2.0-8.3) x10*3/uL Absolute Nucleated RBC 0.000 (0.0-0.012) X10*3/uL Nucleated RBC % (auto) 0.0 (0.0-0.2) /100WBC Sodium 141 (135-145) mmol/L Potassium 3.5 (3.3-5.1) mmol/L Chloride 110 H (96-108) mmol/L Carbon Dioxide 25 (22-29) mmol/L Anion Gap 10 L (12-20) BUN 7 L (9-16) mg/dL Creatinine 0.73 (0.5-1.4) mg/dL Estim Creat Clear Calc 144.8 Estimated GFR > 60 Random Glucose 86 (60-115) mg/dL Calcium 9.1 (8.4-10.2) mg/dL Total Bilirubin 0.3 (0.0-1.0) mg/dL Direct Bilirubin 0.1 (0.0-0.5) mg/dL AST 16 (5-31) U/L ALT 13 (0-31) U/L Alkaline Phosphatase 92 (39-117) U/L Total Protein 7.3 (6.5-8.0) g/dL Albumin 4.2 (3.5-5.0) g/dL Lipase 15 (8-78) U/L Urine Color Dark Yellow Urine Appearance Clear Urine pH 6.0 (5.0-9.0) Ur Specific Sylvester >= 1.030 H (1.005-1.025) Urine Protein 30 (1+) H (Neg-Trace) mg/dL Urine Glucose (UA) Negative (Negative) mg/dL Urine Ketones Trace (Negative) mg/dL Urine Blood Moderate (2+) H (Negative) Urine Nitrite Negative (Negative) Ur Leukocyte Esterase Trace H (Negative) Urine RBC 3-5 H (0-2) /HPF Urine WBC 0-5 (0-5) /HPF Ur Squamous Epith Cells 11-20 (0-2) /HPF Urine Bacteria None Seen (None Seen) Hyaline Casts 3-5 (0-2) /LPF Urine Test NEGATIVE (NEGATIVE) Independent Interpretation I performed an independent interpretation of an: Ultrasound Interpretation: Ultrasound bilateral kidneys without hydronephrosis or calculi, agree with radiologist's interpretation. Radiology Impression Discussion of test interpretation with radiology: I have reviewed the radiologist's reading. Radiologist Impression: US renal BI IMPRESSION: No hydronephrosis or mass.. Independent Historian Clinical information obtained from an independent historian. History obtained from or confirmed by: Parent (dad) External Record Review External record reviewed: Inpatient record, Office record, Outpatient record, Prior outpatient labs, Prior outpatient radiology, Primary care record and Outside ED record Tests considered The following testing was considered but not selected: Considered obtaining CT abd/pelvis w/o con however labs wnl, normal renal function and unremarkable renal US > unlikely obstructing stone. Prescription Management I considered prescription management with: Pain Medication and Other (Antiemetic) Chronic Conditions Patient?s care impacted by: Other (Nephrolithiasis, bulging disc) Social Determinants Patient?s care significantly limited by Social Determinants of Health including: Other Social Determinant of Health Medications Administered Discontinued Medications Generic Name Dose Route Start Last Admin Trade Name Pelon PRN Reason Stop Dose Admin Acetaminophen 975 mg 06/15/23 11:53 06/15/23 12:12 Acetaminophen 325 Mg Tablet PO 06/15/23 11:54 975 mg ONCE ONE Administration Sodium Chloride 1,000 mls @ 999 mls/hr 06/15/23 12:00 06/15/23 13:15 Ns IV 06/15/23 13:00 Infused .Q1H1M BENJAMIN Infusion Critical Care Time Critical Care Time Critical Care Time: No Discharge Plan Discharge Clinical Impression: Nephrolithiasis Patient Disposition: Home, Self-Care Instructions: Kidney Stones (ED) Additional Instructions: Your labs today are reassuring. Your urine was negative for infection and however did show a moderate amount of blood indicative of a kidney stone. Your ultrasound did not show enlargement of the kidneys or any stones within the kidneys. You're likely passing a renal stone. Flomax has been sent to your pharmacy. Take this for the next 7 days to help with stone passage. Take this as night as it may affect her blood pressure. Naproxen has been your pharmacy for pain control. Do not take this with other NSAID making increase risk for GI bleed. You have also been provided a referral to a urologist to follow-up with. He may call them to make an appointment. They will not call you. You may also call your previous urologist, Dr. Almazan to make a follow-up appointment this week. If her symptoms persist or worsen despite treatment, return to the emergency department. In the case of an emergency call 911. Prescriptions: New tamsulosin [Flomax] 0.4 mg capsule 0.4 mg PO BEDTIME 7 Days Qty: 7 0RF naproxen 500 mg tablet 500 mg PO Q8H PRN (Reason: pain (scale score 4-6)) Qty: 30 0RF No Action sulfamethoxazole-trimethoprim [Bactrim DS] 800-160 mg tablet 1 tab PO BID 5 Days Qty: 10 0RF nitrofurantoin monohyd/m-cryst [Macrobid] 100 mg capsule 100 mg PO BID Qty: 6 0RF Rx Instructions: must administer with a meal/food tamsulosin [Flomax] 0.4 mg capsule 0.4 mg PO BEDTIME Qty: 30 2RF escitalopram oxalate 20 mg tablet 1 tab PO DAILY Otezla 30 mg tablet 1 tab PO BID meloxicam 15 mg tablet 15 mg PO DAILY Qty: 14 0RF gabapentin 300 mg capsule 300 mg PO TID Qty: 14 0RF naproxen 375 mg tablet,delayed release (DR/EC) 375 mg PO BID Qty: 20 0RF oxycodone-acetaminophen [Percocet] 5-325 mg tablet 1 tab PO Q8H PRN (Reason: pain (scale score 7-10)) Qty: 4 0RF Rx Instructions: Partial Fill upon patient request. Referrals: [facility] [Provider Group] Komal Diaz MD [Primary Care Provider] - Stand Alone Forms: Work/School Release Interventions: ED Discharge Assessment Last Done: 06/15/23 13:34 Discharge Date/Time: 06/15/23 13:35
[2023-06-15 11:12] VITALS: BP 138/92; PULSE 90; RESP 16; TEMP 36.8; O2SAT 97; BMI 38.0
[2023-06-15 11:26] LABS: MANUAL DIFF FLAG NO
[2023-06-15 11:29] LABS: Basophils Percent Auto 0.5 % (0-2); Eosinophils Absolute Auto 0.1 X10*3/uL (0.0-0.4); Eosinophils Percent Auto 1.3 % (0-4); Hematocrit 43.5 % (37.0-47.0); Hemoglobin 14.7 g/dl (12.0-16.0); Imm Gran Abs Auto 0.04 X10*3/uL (0.00-0.03); Imm Gran Pct Auto 0.5 % (0.0-0.4); Lymphocytes Percent Auto 23.9 % (20-40); Mean Corpuscular HGB Conc 33.8 g/dl (31.0-35.0); Mean Corpuscular Volume 82.9 fL (80.0-98.0); Mean Platelet Volume 9.9 fL (9.4-12.3); Monocytes Absolute Auto 0.7 X10*3/uL (0.1-1.2); Monocytes Percent Auto 8.7 % (2-11); Neutrophils Absolute Auto 5.4 x10*3/uL (2.0-8.3); Neutrophils Percent Auto 65.1 % (45-73); Platelet Count 239 X10*3/uL (160-400); Red Blood Count 5.25 X10*6/uL (4.20-5.50); Red Cell Distribution Width 13.3 % (11.0-16.0); White Blood Count 8.3 X10*3/uL (4.8-10.8)
[2023-06-15 11:30] LABS: Appearance Urine Clear; Color Urine Dark Yellow; Glucose Urine UA Negative (Negative); Leukocyte Esterase Urine Trace (Negative); Nitrite Urine Negative (Negative); Specific Gravity - Urine >= 1.030 (1.005-1.025); UMIC TRIGGER UACC YES; Urine Blood Moderate (2+) (Negative); Urine Ketones Trace mg/dL (Negative); Urine Protein 30 (1+) mg/dL (Neg-Trace)
[2023-06-15 11:32] LABS: UPreg QC Valid YES; Urine Pregnancy NEGATIVE (NEGATIVE)
[2023-06-15 11:44] LABS: Alanine Aminotransferase 13 U/L (0-31); Albumin Level 4.2 g/dL (3.5-5.0); Alkaline Phosphatase 92 U/L (39-117); Anion Gap 10 (12-20); Aspartate Amino Transferase 16 U/L (5-31); Bacteria Urine None Seen (None Seen); Bilirubin Direct 0.1 mg/dL (0.0-0.5); Bilirubin Total 0.3 mg/dL (0.0-1.0); Blood Urea Nitrogen 7 mg/dL (9-16); Calcium 9.1 mg/dL (8.4-10.2); Carbon Dioxide 25 mmol/L (22-29); Chloride 110 mmol/L (96-108); Creatinine Clr Calc Pharmacy 144.8; Estimated Glomerular Filt Rate > 60; Glucose Random 86 mg/dL (60-115); Lipase 15 U/L (8-78); Potassium 3.5 mmol/L (3.3-5.1); Sodium 141 mmol/L (135-145); Total Protein 7.3 g/dL (6.5-8.0); WBC Urine 0-5 /HPF (0-5)
[2023-06-15] MEDS: 0.9 % Sodium Chloride 1,000 ML 999 ML IV (12:11)
[2023-06-15] MEDS: Acetaminophen 325 MG TABLET 975 MG PO (12:12)
--- NOTE | 2023-06-15 12:17 | PC.NURSE ---
pt a&ox4, vss, reporting 6/10 left flank/pelvic pain starting ~ 1 week ago but worsening yesterday, dysuria, hx of kidney stones in October. 20G IV placed left AC, 1L NS running, medicated per SEP. resting quietly, father at bedside, pending u/s results. no new orders at this time.
[2023-06-15 13:34] VITALS: RESP 16
== END 2023-06-15 13:35 | disposition home or self-care (01) ==
PROVIDERS: Physician Assistant; Emergency Provider Emergency Medicine Emergency Medical Services; PCP Internal Medicine
DX: N20.0 Calculus of kidney (principal); R10.9 Unspecified abdominal pain; M54.50 Low back pain, unspecified; R10.32 Left lower quadrant pain; R11.2 Nausea with vomiting, unspecified; Z79.899 Other long term (current) drug therapy
CPT/HCPCS: 36415; 76775; 80048; 80076; 81001; 81025; 83690; 85025; 96360; 99284; 99285

== ENCOUNTER 2023-09-13 07:20 | Emergency (ER) | payer OTHER, SELFPAY ==
--- NOTE | ~2023-09-13 | US_ITS ---
EXAMINATION: US RETROPERITONEAL LIMITED (RENAL ONLY) CLINICAL INFORMATION: Left flank pain. COMPARISON: Ultrasound renal from 06/15/2023 TECHNIQUE: [place] scale and color images of the bilateral FINDINGS: RIGHT KIDNEY: 11.1 x 4.4 x 5.0 cm (SAG x AP x TRV). The kidney is normal in size, contour, and echogenicity. Renal cortical thickness is normal. No calculi or focal parenchymal lesions. No hydronephrosis. LEFT KIDNEY: 11.3 x 4.4 x 4.6 cm (SAG x AP x TRV). The kidney is normal in size, contour, and echogenicity. Renal cortical thickness is normal. No focal parenchymal lesions. No hydronephrosis. Punctate echogenic focus noted in the left renal lower pole measuring 2 mm without clinical may represents a nonshadowing calculus versus angiomyolipoma. US/US renal BI IMPRESSION: Punctate echogenic focus noted in the left renal lower pole measuring 2 mm without clinical may represents a nonshadowing calculus versus angiomyolipoma.
[2023-09-13 07:34] VITALS: BP 146/89; PULSE 84; RESP 18; TEMP 36.2; O2SAT 100; BMI 37.0
[2023-09-13 07:58] LABS: MANUAL DIFF FLAG NO
[2023-09-13 07:59] LABS: Basophils Percent Auto 0.5 % (0-2); Eosinophils Absolute Auto 0.1 X10*3/uL (0.0-0.4); Eosinophils Percent Auto 0.9 % (0-4); Hematocrit 45.1 % (37.0-47.0); Hemoglobin 15.1 g/dl (12.0-16.0); Imm Gran Abs Auto 0.04 X10*3/uL (0.00-0.03); Imm Gran Pct Auto 0.5 % (0.0-0.4); Lymphocytes Absolute Auto 2.8 X10*3/uL (1.2-4.9); Lymphocytes Percent Auto 32.4 % (20-40); Mean Corpuscular HGB Conc 33.5 g/dl (31.0-35.0); Mean Corpuscular Hemoglobin 28.4 pg (27.0-33.0); Mean Corpuscular Volume 84.8 fL (80.0-98.0); Monocytes Absolute Auto 0.7 X10*3/uL (0.1-1.2); Monocytes Percent Auto 8.6 % (2-11); Neutrophils Absolute Auto 4.9 x10*3/uL (2.0-8.3); Neutrophils Percent Auto 57.1 % (45-73); Platelet Count 243 X10*3/uL (160-400); Red Blood Count 5.32 X10*6/uL (4.20-5.50); Red Cell Distribution Width 12.7 % (11.0-16.0); White Blood Count 8.6 X10*3/uL (4.8-10.8)
[2023-09-13 08:01] LABS: Appearance Urine Cloudy; Color Urine Dark Yellow; Glucose Urine UA Negative (Negative); Leukocyte Esterase Urine Trace (Negative); Nitrite Urine Negative (Negative); PH 5.5 (5.0-9.0); Specific Gravity - Urine >= 1.030 (1.005-1.025); UMIC TRIGGER UACC YES; Urine Blood Trace (Negative); Urine Ketones Trace mg/dL (Negative); Urine Protein 30 (1+) mg/dL (Neg-Trace)
[2023-09-13 08:05] LABS: UPreg QC Valid YES; Urine Pregnancy NEGATIVE (NEGATIVE)
[2023-09-13 08:13] LABS: Alanine Aminotransferase 12 U/L (0-31); Albumin Level 4.3 g/dL (3.5-5.0); Alkaline Phosphatase 94 U/L (39-117); Anion Gap 12 (12-20); Aspartate Amino Transferase 16 U/L (5-31); Bilirubin Direct 0.2 mg/dL (0.0-0.5); Bilirubin Total 0.5 mg/dL (0.0-1.0); Blood Urea Nitrogen 10 mg/dL (9-16); Calcium 9.2 mg/dL (8.4-10.2); Carbon Dioxide 24 mmol/L (22-29); Chloride 108 mmol/L (96-108); Creatinine Clr Calc Pharmacy 130.1; Estimated Glomerular Filt Rate > 60; Glucose Random 89 mg/dL (60-115); Lipase 18 U/L (8-78); Potassium 3.8 mmol/L (3.3-5.1); Sodium 140 mmol/L (135-145); Total Protein 7.6 g/dL (6.5-8.0)
[2023-09-13 08:14] LABS: Bacteria Urine Trace (None Seen); Granular Casts Urine Present; Hyaline Casts Urine >20 /LPF (0-2); RBC Urine 0-2 /HPF (0-2); UACC Culture Trigger YES
[2023-09-13 12:39] VITALS: BP 137/91; PULSE 80; RESP 18; TEMP 36.5; O2SAT 97
[2023-09-13 13:00] LABS: Appearance Urine Clear; Color Urine Yellow; Glucose Urine UA Negative (Negative); Leukocyte Esterase Urine Trace (Negative); Nitrite Urine Negative (Negative); PH 5.5 (5.0-9.0); Specific Gravity - Urine 1.015 (1.005-1.025); UMIC TRIGGER UACC YES; Urine Blood Negative (Negative); Urine Ketones Negative (Negative); Urine Protein Negative (Neg-Trace)
[2023-09-13 13:02] LABS: Bacteria Urine None Seen (None Seen); Hyaline Casts Urine 0-2 /LPF (0-2); RBC Urine 0-2 /HPF (0-2); Squamous Epithelial Cell Urine 0-2 /HPF (0-2); WBC Urine 0-5 /HPF (0-5)
--- NOTE | 2023-09-13 13:36 | ED_ITS ---
HPI - Abdominal Pain General Chief Complaint: Abdominal Pain Stated Complaint: L flank pain Time Seen by Provider: 09/13/23 13:33 Source: patient, RN notes reviewed and old records reviewed Mode of arrival: ambulatory History of Present Illness HPI narrative: 32-year-old female with a past medical history IBS, syncope, pyelonephritis, ureteral stent, presenting to the ED complaining of left flank pain radiating to left lower quadrant intermittently x4 days with associated dysuria and nausea. Denies fever, chills, vomiting, diarrhea, hematuria, vaginal bleeding or discharge at present. MD elicited complaint: abdominal pain and flank pain Related Data Home Medications Medication Instructions Recorded Confirmed apremilast 30 mg tablet (Otezla) 1 tab PO BID 10/19/22 10/28/22 escitalopram oxalate 20 mg tablet 1 tab PO DAILY 10/19/22 10/28/22 Previous Rx's Medication Instructions Recorded naproxen 375 mg tablet,delayed 375 mg PO BID #20 tabs 10/29/22 release oxycodone-acetaminophen 5 mg-325 1 tab PO Q8H PRN pain (scale score 10/29/22 mg tablet (Percocet) 7-10) #4 tabs sulfamethoxazole 800 1 tab PO BID 5 days #10 tabs 11/04/22 mg-trimethoprim 160 mg tablet (Bactrim DS) nitrofurantoin 100 mg PO BID #6 caps 01/14/23 monohydrate/macrocrystals 100 mg capsule (Macrobid) gabapentin 300 mg capsule 300 mg PO TID #14 caps 01/26/23 meloxicam 15 mg tablet 15 mg PO DAILY #14 tabs 01/26/23 naproxen 500 mg tablet 500 mg PO Q8H PRN pain (scale 06/15/23 score 4-6) #30 tabs tamsulosin 0.4 mg capsule (Flomax) 0.4 mg PO BEDTIME 7 days #7 caps 06/15/23 ketorolac 10 mg tablet 10 mg PO TID PRN pain 5 days #15 09/13/23 tabs tamsulosin 0.4 mg capsule 0.4 mg PO BEDTIME #90 caps 09/13/23 tamsulosin 0.4 mg capsule (Flomax) 0.4 mg PO DAILY #14 caps 09/13/23 Allergies Allergy/AdvReac Type Severity Reaction Status Date / Time No Known Allergies Allergy Verified 09/13/23 07:37 [No Known Allergies*] Review of Systems Review of Systems Constitutional: No Fever, No Chills ENT/Mouth: No Ear Pain, No Nasal Congestion, No sore throat, No Rhinorrhea, No Swallowing Difficulty Cardiovascular: No Chest Pain, No SOB Respiratory: No Cough, No Sputum, No Wheezing Gastrointestinal: +Nausea, No Vomiting, No Diarrhea, No Constipation,+ Abdominal pain Genitourinary: +Dysuria, No Urinary Frequency, No Hematuria, No Urinary Incontinence/retention, No Urgency, +Flank Pain Musculoskeletal: No joint pain, No Myalgias, No Joint Swelling Skin: No Skin Lesions, No rash Neuro: No Weakness, No Numbness, No Paresthesias Yes all other systems are reviewed and are negative Constitutional: Reports as per [facility] Past Medical History Attestation statement: The following information was validated with the patient. Source: old records reviewed Medical History Ureteral stent present UTI (urinary tract infection) Pyelonephritis Syncope Vaso vagal episode IBS (irritable bowel syndrome) Surgical History No pertinent past surgical history Social History Social History Household Members: Spouse Household Members Other:: 2 Housing: House Do you presently have visiting nurse or other home services: No Alcohol intake: never Patient Tobacco Use Status: Never used Tobacco e-Cigarette/Vaping Use: Never Used Second Hand Smoke Exposure: No Substance Use Type: Marijuana Advance Directives: Yes Advance Directives on File: Yes Advance Directives Date on File: 10/25/22 service: No Current occupational status: unemployed Physical Exam ED Vital Signs: Vital Signs - 24 hr 09/13/23 07:34 09/13/23 12:39 09/13/23 13:49 Temperature 97.2 F 97.7 F 98.6 F Pulse Rate 84 80 91 Respiratory Rate 18 18 16 Blood Pressure 146/89 H 137/91 H 129/77 Pulse Oximetry 100 97 96 Oxygen Delivery Method Room Air Room Air Room Air 09/13/23 15:32 Temperature 98.6 F Pulse Rate 84 Respiratory Rate 16 Blood Pressure 145/84 H Pulse Oximetry 99 Oxygen Delivery Method BMI result Body Mass Index 37.0 Const General: cooperative, healthy appearing and no acute distress Orientation/consciousness: patient oriented x3 Limitations: no limitations HENMT Head: Yes normal to inspection and Yes atraumatic Ears: hearing grossly normal bilaterally General nose exam: Normal external nose present Face and sinus: Yes normal facial exam Eyes General: appearance normal, both eyes and all related structures EOM: EOMs intact bilaterally Neck Neck: Yes normal visual inspection and Yes no meningeal signs Resp Effort & Inspection: normal respiratory effort and no respiratory distress Cardio Rate: regular rate GI Inspection: Yes normal to inspection Palpation (GI): Soft to palpation, nontender, no guarding and not rigid General: Yes no CVA tenderness Back/Spine/Pelvis Back: no CVA tenderness Skin Rashes: no rashes Wounds: no wounds Neuro General: patient oriented x3, tone normal and no meningeal signs Cranial nerves: Yes CN's II-XII intact bilaterally Gait exam (Neuro): Normal gait present Extrem General: Yes normal to inspection Course Course Course Narrative: -1347--labs reassuring. UA not infected, urine negative 1517--US renal BI IMPRESSION: Punctate echogenic focus noted in the left renal lower pole measuring 2 mm without clinical may represents a nonshadowing calculus versus angiomyolipoma. >Results discussed with patient, patient has remained comfortable in the ED, ambulating without difficulty. Discussed discharge home with close Urology follow-up, w/Toradol and Flomax. Discussed worrisome signs and symptoms and strict return precautions, and when to return to the emergency department. They verbalized understanding and feel safe for discharge at this time. Medical Decision Making Medical Decision Making MDM Narrative: 32-year-old female with a past medical history IBS, syncope, pyelonephritis, ureteral stent, presenting to the ED complaining of left flank pain radiating to left lower quadrant intermittently x4 days with associated dysuria and nausea. On exam vital signs stable, NAD, nontoxic appearing, abdomen soft/nontender, no CVAT. Concern for UTI/pyelo vs renal stone. Lower suspicion for diverticulitis/colitis, appendicitis, cholecystitis/cholelithiasis or pancreatitis Plan: Labs, UA, renal ultrasound, IVF, pain control, re-evaluate Please refer to course for remaining clinical decision making, interpretation of labs/imaging results, and discussions with consultants and/or family members. Differential Diagnosis Differential Diagnoses: The differential diagnosis associated with the presentation includes As above Admission/Observation Consideration of admission/observation: Escalation of care including admission/observation considered Lab Data MDM Lab Attestation statement: I reviewed the patient's lab results. 09/13/23 07:49 09/13/23 07:49 Labs: Lab Results 09/13/23 09/13/23 09/13/23 Range/Units 07:46 07:49 12:53 WBC 8.6 (4.8-10.8) X10*3/uL RBC 5.32 (4.20-5.50) X10*6/uL Hgb 15.1 (12.0-16.0) g/dl Hct 45.1 (37.0-47.0) % MCV 84.8 (80.0-98.0) fL MCH 28.4 (27.0-33.0) pg MCHC 33.5 (31.0-35.0) g/dl RDW 12.7 (11.0-16.0) % Plt Count 243 (160-400) X10*3/uL MPV 10.0 (9.4-12.3) fL Immature Gran % (Auto) 0.5 H (0.0-0.4) % Neut % (Auto) 57.1 (45-73) % Lymph % (Auto) 32.4 (20-40) % [place] % (Auto) 8.6 (2-11) % Eos % (Auto) 0.9 (0-4) % Baso % (Auto) 0.5 (0-2) % Lymph # (Auto) 2.8 (1.2-4.9) X10*3/uL [place] # (Auto) 0.7 (0.1-1.2) X10*3/uL Eos # (Auto) 0.1 (0.0-0.4) X10*3/uL Baso # (Auto) 0.0 (0.0-0.2) X10*3/uL Abs Immat Gran (auto) 0.04 H (0.00-0.03) X10*3/uL Absolute Neuts (auto) 4.9 (2.0-8.3) x10*3/uL Absolute Nucleated RBC 0.000 (0.0-0.012) X10*3/uL Nucleated RBC % (auto) 0.0 (0.0-0.2) /100WBC Sodium 140 (135-145) mmol/L Potassium 3.8 (3.3-5.1) mmol/L Chloride 108 (96-108) mmol/L Carbon Dioxide 24 (22-29) mmol/L Anion Gap 12 (12-20) BUN 10 (9-16) mg/dL Creatinine 0.80 (0.5-1.4) mg/dL Estim Creat Clear Calc 130.1 Estimated GFR > 60 Random Glucose 89 (60-115) mg/dL Calcium 9.2 (8.4-10.2) mg/dL Total Bilirubin 0.5 (0.0-1.0) mg/dL Direct Bilirubin 0.2 (0.0-0.5) mg/dL AST 16 (5-31) U/L ALT 12 (0-31) U/L Alkaline Phosphatase 94 (39-117) U/L Total Protein 7.6 (6.5-8.0) g/dL Albumin 4.3 (3.5-5.0) g/dL Lipase 18 (8-78) U/L Urine Color Dark Yellow Yellow Urine Appearance Cloudy Clear Urine pH 5.5 5.5 (5.0-9.0) Ur Specific [place] >= 1.030 H 1.015 (1.005-1.025) Urine Protein 30 (1+) H Negative (Neg-Trace) mg/dL Urine Glucose (UA) Negative Negative (Negative) mg/dL Urine Ketones Trace Negative (Negative) mg/dL Urine Blood Trace H Negative (Negative) Urine Nitrite Negative Negative (Negative) Ur Leukocyte Esterase Trace H Trace H (Negative) Urine RBC 0-2 0-2 (0-2) /HPF Urine WBC 6-10 H 0-5 (0-5) /HPF Ur Squamous Epith Cells 11-20 0-2 (0-2) /HPF Urine Bacteria Trace None Seen (None Seen) Hyaline Casts >20 0-2 (0-2) /LPF Granular Casts Present Urine Test NEGATIVE (NEGATIVE) Independent Interpretation I performed an independent interpretation of an: Ultrasound Radiology Impression Discussion of test interpretation with radiology: I have reviewed the radiologist's reading. External Record Review External record reviewed: Inpatient record, Office record, Outpatient record, Prior outpatient labs, Prior outpatient radiology, Primary care record and Outside ED record Tests considered The following testing was considered but not selected: As above Prescription Management I considered prescription management with: Pain Medication and Antibiotic Chronic Conditions Patient?s care impacted by: Other Medications Administered Discontinued Medications Generic Name Dose Route Start Last Admin Trade Name Freq PRN Reason Stop Dose Admin Sodium Chloride 1,000 mls @ 999 mls/hr 09/13/23 13:45 09/13/23 13:54 Ns IV 09/13/23 14:45 999 mls/hr .Q1H1M BENJAMIN Administration Ketorolac Tromethamine 30 mg 09/13/23 13:44 09/13/23 13:52 Ketorolac Tromethamine 30 Mg/Ml Vial IVPUSH 09/13/23 13:45 30 mg ONCE ONE Administration Discharge Plan Discharge Clinical Impression: Renal calculus Patient Disposition: Home, Self-Care Instructions: Kidney Stones (ED) Additional Instructions: Your ultrasound is suspicious for small stone in your left kidney. Flomax will help dilate your ureter to help pass stones Toradol as an anti-inflammatory/pain medication, take with food. Please do not take Motrin/ibuprofen, Aleve and Toradol, pick 1 is there similar medications In addition take Tylenol Please follow-up with urology, call tomorrow to make an appointment If symptoms persist or worsen, if constant worsening/unbearable pain, persistent nausea/vomiting or fever, or your unable to urinate please return to the emergency department Prescriptions: New ketorolac 10 mg tablet 10 mg PO TID PRN (Reason: pain) 5 Days Qty: 15 0RF tamsulosin [Flomax] 0.4 mg capsule 0.4 mg PO DAILY Qty: 14 0RF No Action sulfamethoxazole-trimethoprim [Bactrim DS] 800-160 mg tablet 1 tab PO BID 5 Days Qty: 10 0RF nitrofurantoin monohyd/m-cryst [Macrobid] 100 mg capsule 100 mg PO BID Qty: 6 0RF Rx Instructions: must administer with a meal/food tamsulosin 0.4 mg capsule 0.4 mg PO BEDTIME Qty: 90 3RF escitalopram oxalate 20 mg tablet 1 tab PO DAILY Otezla 30 mg tablet 1 tab PO BID meloxicam 15 mg tablet 15 mg PO DAILY Qty: 14 0RF gabapentin 300 mg capsule 300 mg PO TID Qty: 14 0RF naproxen 375 mg tablet,delayed release (DR/EC) 375 mg PO BID Qty: 20 0RF oxycodone-acetaminophen [Percocet] 5-325 mg tablet 1 tab PO Q8H PRN (Reason: pain (scale score 7-10)) Qty: 4 0RF Rx Instructions: Partial Fill upon patient request. tamsulosin [Flomax] 0.4 mg capsule 0.4 mg PO BEDTIME 7 Days Qty: 7 0RF naproxen 500 mg tablet 500 mg PO Q8H PRN (Reason: pain (scale score 4-6)) Qty: 30 0RF Referrals: [facility] [place] [facility] [Provider Group] - 1 week Discharge Date/Time: 09/13/23 15:33
[2023-09-13 13:49] VITALS: BP 129/77; PULSE 91; RESP 16; TEMP 37; O2SAT 96
[2023-09-13] MEDS: Ketorolac Tromethamine 30 MG/ML VIAL IVPUSH (13:52)
[2023-09-13] MEDS: 0.9 % Sodium Chloride 1,000 ML 999 ML IV (13:54)
--- NOTE | 2023-09-13 13:54 | PC.NURSE ---
a&ox4. vss and up to date. pt presents to the ED w/ left sided flank pain that radiates to the LLQ. pt also verbalizing nausea/dysuria. denies any other urinary sx. pt rates intermittent pain at 3/10 at this time. no sob/wob noted. respirations even and unlabored. 20gIV placed in the right AC. IVF/medication administered per provider order. US bedside at this time. plan of care ongoing. call greer placed within reach.
[2023-09-13 15:32] VITALS: BP 145/84; PULSE 84; RESP 16; TEMP 37; O2SAT 99
== END 2023-09-13 15:33 | disposition home or self-care (01) ==
PROVIDERS: Physician Assistant Medical; Emergency Provider Emergency Medicine Emergency Medical Services; PCP Internal Medicine
DX: N20.0 Calculus of kidney (principal); R10.30 Lower abdominal pain, unspecified; R30.0 Dysuria; R11.2 Nausea with vomiting, unspecified; Z79.899 Other long term (current) drug therapy
CPT/HCPCS: 36415; 76775; 80048; 80076; 81001; 81003; 81025; 83690; 85025; 87086; 96374; 99283; 99284; J1885

== ENCOUNTER 2023-10-06 11:12 | Outpatient (AMB) | payer OTHER, SELFPAY ==
--- NOTE | 2023-10-06 11:25 | MHC.OFFVIS ---
Intake Intake Visit Reasons: Kidney Stones/[facility] Results(set) Intake Note: Patient presents today for a follow-up Kidney Stones Urology Medications: none Allergies to Antibiotic: None Blood Thinner: None Learning And Development Manager Required: No Accompanied by: Self / Same As Patient Allergies No Known Allergies [No Known Allergies*] Allergy (Verified 10/06/23 12:00) Medication List - Last Reconciled 10/06/23 by LUL Trevino-JENY apremilast (Otezla) 1 tab PO BID escitalopram oxalate 1 tab PO DAILY gabapentin 300 mg PO TID ketorolac 10 mg PO TID PRN 5 days meloxicam 15 mg PO DAILY naproxen 375 mg PO BID naproxen 500 mg PO Q8H PRN semaglutide (weight loss) (Wegovy) mg subcut HPI HPI Comments History of Present Illness Details Kristine is a very pleasant 32-year-old female patient of Dr. Diaz. She has a past medical history of pyelonephritis, nephrolithiasis, IBS, and pots syndrome. She presents to the office today for follow-up of her nephrolithiasis. Recent renal imaging results reviewed with the patient today. Right kidney with no calculi, lesions, or hydronephrosis. Left kidney with no hydronephrosis. Punctate echogenic focus noted in the left renal lower pole measuring approximately 2 mm may represent nonshadowing calculus versus angiolipoma. In discussion with the patient today she reports to be doing and feeling well. She reports at times she experiences left-sided flank pain however pain varies. She reports noting over the last 2-3 weeks she has been feeling better. Recent 24 hour urine collection results reviewed with the patient today. Discussed increasing urine volume to approximately 2 L per day, borderline hyperoxaluria, increase urine PH, and mild hyperuricosuria. Discussed increased in urine sodium however patient discusses she suffers from POTS and has been instructed to increase sodium intake. She also recalls having had a migraine the day of the 24 hour urine collection and had a electrolyte drink with increased sodium. She otherwise denies any bothersome urinary issues. She denies urinary urgency, urinary frequency, incontinence, nocturia, hematuria, dysuria, foul smelling urine, changes to urinary stream, flank pain, fever, and or chills. She is happy with her current voiding parameters. She has a previous surgical history of nephrolithiasis requiring stent placement. In office urinalysis results reviewed with the patient today. Discussed at length potential causes of nephrolithiasis. Discussed continuing with surveillance monitoring. She otherwise offers no other issues or concerns at this time. [facility] Medical History Ureteral stent present UTI (urinary tract infection) Pyelonephritis Syncope Vaso vagal episode IBS (irritable bowel syndrome) Surgical History No pertinent past surgical history Social History Household Members: Spouse Household Members Other:: 2 Housing: House Do you presently have visiting nurse or other home services: No Alcohol intake: never Patient Tobacco Use Status: Never used Tobacco e-Cigarette/Vaping Use: Never Used Second Hand Smoke Exposure: No Substance Use Type: Marijuana Advance Directives Date on File: 10/25/22 service: No Current occupational status: unemployed Review of Systems Const Reports no additional complaints Eyes Reports no additional complaints ENT Reports no additional complaints Card Reports as per HPI Resp Reports no additional complaints GI Reports as per HPI Reports as per HPI Musc Reports no additional complaints Neuro Reports no additional complaints Psych Reports no additional complaints Endo Reports no additional complaints Eliot/Lymph Reports no additional complaints Aller/Immun Reports no additional complaints Physical Exam Const General: cooperative, healthy appearing, comfortable, no acute distress, well developed, alert and awake Nutritional Appearance: overweight Orientation/consciousness: patient oriented x3 Limitations: no limitations HEENT Head: Yes normal to inspection, Yes normocephalic and Yes atraumatic Ears: hearing grossly normal bilaterally Eyes General: appearance normal, both eyes and all related structures Neck Neck: Yes normal visual inspection and Yes trachea midline Chest Chest palpation & inspection: normal inspection of the chest Resp Effort & Inspection: normal respiratory effort and able to speak in complete sentences Cardio Rate: regular rate GI Inspection: Yes normal to inspection General: Yes no CVA tenderness Back/Spine/Pelvis Back: no CVA tenderness Skin General skin exam: no rashes or lesions noted Neuro General: patient oriented x3 Extrem General: Yes normal to inspection Psych Appearance: grossly normal and well kempt Mental Status: mental status grossly normal Speech and movement: Normal speech and movement present and Clear speech present Affect: normal affect Attitude: cooperative Thought process: Normal thought process present Thought content: Normal thought content present Insight: Fair insight present (Psych) Judgement: Fair judgement present (Psych) Results AMB Urinalysis, Automated UA Leukoctes 0 Marcia/uL Last Edit by Jose Luis Jade on 10/06/23 11:38 UA Nitrite Negative Last Edit by Jose Luis Jade on 10/06/23 11:38 UA Urobilinogen 0.2 mg/dL Last Edit by EvntLiveminnie Jade on 10/06/23 11:38 UA Protein 15 mg/dL Last Edit by [employer] on 10/06/23 11:38 UA pH 6.0 Last Edit by [email or web address] on 10/06/23 11:38 UA Blood 80 Oleksandr/uL Last Edit by EvntLiveminnie Jade on 10/06/23 11:38 UA Specific [place] 1.025 Last Edit by [employer]ila Jade on 10/06/23 11:38 UA Ketone Negative Last Edit by [employer] Jade on 10/06/23 11:38 UA Bilirubin 0 mg/dL Last Edit by [employer] on 10/06/23 11:38 UA Glucose 0 mg/dL Last Edit by [email or web address] on 10/06/23 11:38 Results Reviewed Results Reviewed: Laboratory Last Values Urine pH (Auto) 6.0 10/06/23 11:30 Specific [place] (Auto) 1.025 10/06/23 11:30 Urine Protein (Auto) 15 mg/dL 10/06/23 11:30 Glucose (UA)(Auto) 0 mg/dL 10/06/23 11:30 Urine Ketones (Auto) Negative 10/06/23 11:30 Urine Blood (Auto) 80 Oleksandr/uL 10/06/23 11:30 Urine Nitrite (Auto) Negative 10/06/23 11:30 Urine Bilirubin (Auto) 0 mg/dL 10/06/23 11:30 Urine Urobilinogen (Auto) 0.2 mg/dL 10/06/23 11:30 Leukocyte Esterase (Auto) 0 Marcia/uL 10/06/23 11:30 Date of Service: 09/13/23 EXAMINATION: US RETROPERITONEAL LIMITED (RENAL ONLY) FINDINGS: RIGHT KIDNEY: 11.1 x 4.4 x 5.0 cm (SAG x AP x TRV). The kidney is normal in size, contour, and echogenicity. Renal cortical thickness is normal. No calculi or focal parenchymal lesions. No hydronephrosis. LEFT KIDNEY: 11.3 x 4.4 x 4.6 cm (SAG x AP x TRV). The kidney is normal in size, contour, and echogenicity. Renal cortical thickness is normal. No focal parenchymal lesions. No hydronephrosis. Punctate echogenic focus noted in the left renal lower pole measuring 2 mm without clinical may represents a nonshadowing calculus versus angiomyolipoma. IMPRESSION: Punctate echogenic focus noted in the left renal lower pole measuring 2 mm without clinical may represents a nonshadowing calculus versus angiomyolipoma. 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 Recent renal ultrasound results reviewed with the patient today; as noted above. Twenty-four urine collection results reviewed with the patient today; as noted above. Discussed at length potential causes of nephrolithiasis. Start vitamin B6 as discussed and prescribed. She currently denies any bothersome urinary issues or concerns. She reports to be happy with her current voiding parameters. Discussed, educated, and stressed the importance of drinking plenty of water daily. Will obtain renal ultrasound in 6 months. Follow-up in 6 months with imaging to be completed prior; or sooner with any issues, concerns, and or questions. Orders: Orders AMB Urinalysis Automated Today Z13.9 - Encounter for screening, unspecified US renal BI 6 Months N20.0 - Calculus of kidney Medications: New pyridoxine (vitamin B6) 100 mg PO DAILY 90 days 90 tabs 3RF N20.0 - Calculus of kidney Discontinued gabapentin Discontinued Reason: Patient Completed Course 300 mg PO TID 14 caps 0RF naproxen Discontinued Reason: Patient Completed Course 375 mg PO BID 20 tabs 0RF meloxicam Discontinued Reason: Patient Completed Course 15 mg PO DAILY 14 tabs 0RF ketorolac Discontinued Reason: Patient Completed Course 10 mg PO TID 5 days PRN 15 tabs 0RF pain Patient Instructions: The patient had an opportunity to ask questions regarding the treatment plan. All questions were answered. Physical exam, labs, and imaging were discussed and reviewed in detail. As well as risks, benefits, and discussion of treatment choices. No major barriers to understanding were identified. The patient expressed understanding and agreement with the above treatment plan. The patient was made aware they should contact our office by phone for worsening of their current condition, the appearance of new symptoms, or with any questions or concerns. Compliance is encouraged with any medications and follow up testing that is ordered. It is a privilege to be allowed the opportunity to participate in? your urological care.? Again, if you have any questions or concerns If you have any questions or concerns please do not hesitate to contact me. The office is [phone]. This note is constructed using voice recognition software. While every effort has been made to ensure accuracy soaping department supervisor errors may have been included. 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
== END 2023-10-06 12:03 | disposition home or self-care (01) ==
PROVIDERS: PCP Internal Medicine; Visit Provider Nurse Practitioner Family
DX: R10.9 Unspecified abdominal pain (principal); N20.0 Calculus of kidney; D17.9 Benign lipomatous neoplasm, unspecified; Z13.9 Encounter for screening, unspecified
CPT/HCPCS: 99214

== ENCOUNTER → 2023-10-06 11:12 | Outpatient (BNVA) | payer OTHER, SELFPAY | PROVIDERS: PCP Internal Medicine; Visit Provider Nurse Practitioner Family | DX: R10.9 Unspecified abdominal pain (principal); N20.0 Calculus of kidney; D17.9 Benign lipomatous neoplasm, unspecified | CPT/HCPCS: 81003; 99212 ==

== ENCOUNTER 2024-01-11 17:22 | Emergency (ER) | payer OTHER, SELFPAY ==
--- NOTE | ~2024-01-11 | CT_ITS ---
EXAMINATION: CT ABDOMEN AND PELVIS WITHOUT CONTRAST CLINICAL INFORMATION: Pain. COMPARISON: 10/28/2022 TECHNIQUE: Multidetector volumetric imaging was performed from the superior aspect of the liver through the pubic symphysis. Sagittal and coronal reformatted images were obtained on the technologist's workstation. This CT examination was performed using dose optimization techniques as appropriate, variously including the following: *Automated exposure control *Adjustment of mA and/or kV according to patient size (this includes techniques or standardized protocols for targeted exams where dose is matched to indication/reason for exam; i.e. extremities or head) *Use of iterative reconstruction technique DLP: 817 mGy-cm FINDINGS: LUNG BASES: The visualized lung bases are unremarkable. LIVER, GALLBLADDER, AND BILIARY TREE: The liver is normal in size, shape, and attenuation. No focal hepatic lesion or biliary ductal dilatation is present. The gallbladder is unremarkable with no evidence of radiopaque gallstones, gallbladder wall thickening, or obvious pericholecystic inflammatory changes. PANCREAS: Unremarkable. SPLEEN: Unremarkable. ADRENAL GLANDS: Unremarkable. KIDNEYS AND URETERS: The kidneys are normal in size, shape, and attenuation. There is a 1 mm calculus mid to upper pole right kidney. No hydronephrosis, hydroureter. No perinephric stranding. BLADDER: Unremarkable. GASTROINTESTINAL TRACT: The small and large bowel are unremarkable. The appendix is unremarkable. ABDOMINAL WALL: No significant hernia is appreciated. LYMPH NODES: Normal. VASCULAR: Unremarkable. PELVIC VISCERA: Unremarkable. OSSEOUS STRUCTURES: Unremarkable. CT/CT abdomen pelvis wo IV con IMPRESSION: Nonobstructing 1 mm calculus mid to upper pole right kidney. No other significant abnormality seen. Fleischner guidelines were followed.
[2024-01-11 18:50] VITALS: BP 129/93; PULSE 98; RESP 18; TEMP 36.5; O2SAT 99; BMI 36.5
--- NOTE | 2024-01-11 18:53 | ED_ITS ---
[facility] - General Adult General Chief complaint: Abdominal Pain Stated complaint: UTI Time Seen by Provider: 01/12/24 01:15 Source: patient Mode of arrival: ambulatory History of Present Illness ED Provider: Dr Doyle [facility] narrative: 33-year-old female, history of renal colic and presents with 1 week of waxing and waning left flank pain associated with dysuria and urinary frequency, patient states that she has also been experiencing nausea with chills and subjective fevers, she was started on ciprofloxacin yesterday for a urinary tract infection. She is currently on Nexplanon. Related Data Home Medications ?Medication ?Instructions ?Recorded ?Confirmed apremilast 30 mg tablet (Otezla) 1 tab PO BID 10/19/22 10/06/23 escitalopram oxalate 20 mg tablet 1 tab PO DAILY 10/19/22 10/06/23 semaglutide (weight loss) 2.4 mg subcut 10/06/23 10/06/23 mg/0.75 mL subcutaneous pen injector (Wegovy) Previous Rx's ?Medication ?Instructions ?Recorded naproxen 500 mg tablet 500 mg PO Q8H PRN pain (scale 06/15/23 score 4-6) #30 tabs pyridoxine (vitamin B6) 100 mg 100 mg PO DAILY 90 days #90 tabs 10/06/23 tablet Allergies Allergy/AdvReac Type Severity Reaction Status Date / Time No Known Allergies Allergy Verified 01/11/24 18:51 [No Known Allergies*] Review of Systems 2 Review of Systems: Pertinent positives and negatives as stated in [facility] Past Medical History Source: nursing notes reviewed Medical History Ureteral stent present UTI (urinary tract infection) Pyelonephritis Syncope Vaso vagal episode IBS (irritable bowel syndrome) Surgical History No pertinent past surgical history Social History Social History Household Members: Spouse Household Members Other:: 2 Housing: House Do you presently have visiting nurse or other home services: No Alcohol intake: never Patient Tobacco Use Status: Never used Tobacco e-Cigarette/Vaping Use: Never Used Second Hand Smoke Exposure: No Substance Use Type: Marijuana Advance Directives: Yes Advance Directives on File: Yes Advance Directives Date on File: 10/25/22 service: No Current occupational status: unemployed Physical Exam ED Vital Signs: Vital Signs - 24 hr 01/11/24 18:50 01/12/24 00:00 01/12/24 03:06 Temperature 97.7 F 98.0 F 98.0 F Pulse Rate 98 80 76 Respiratory Rate 18 16 16 Blood Pressure 129/93 H 130/87 136/83 Pulse Oximetry 99 97 97 Oxygen Delivery Method Room Air Room Air Room Air BMI result Body Mass Index 36.5 VITAL SIGNS: Reviewed. GENERAL: Well developed, well nourished, in no acute distress. HEAD: Normocephalic/atraumatic EYES: PERRLA, EOMI EARS: Ext canals without abnormality NOSE: Nares patent bilateral OROPHARYNX: no oral lesions noted, posterior pharynx clear NECK: Supple, no adenopathy LUNGS: Normal breath sounds. No adventitious sounds or accessory muscle use. SpO2<97> CARDIOVASCULAR: Regular rate and rhythm without noted murmurs ABDOMEN: Soft, non-tender, non-distended with bowel sounds. MUSCULOSKELETAL: No tenderness, deformities, or effusions noted on gross inspection. EXTREMITIES: No cyanosis, clubbing or edema. SKIN: Inspection of the skin reveals no rashes NEUROLOGIC: Alert and oriented x 4. Strength and sensation to light touch were grossly intact x 4. Course Course Course Narrative: This is a rapid medical exam performed by Eldon Esposito NP: Additional HPI, ROS, PE not included below will be deferred to primary provider. Patient is a 33-year-old female with history of kidney stones presenting to the ED complaining of feeling worse since starting Cipro yesterday, has taken two doses so far. Has left flank pain and states she feels generally terrible. Plan: labs, UA Medical Decision Making Medical Decision Making MDM Narrative: 33-year-old female with history and clinical presentation, DDX: Renal colic, pyelonephritis, low clinical suspicion for diverticulitis or obstruction/ectopic . I reviewed all investigations and hematologic indices are negative for leukocytosis/anemia/thrombocytopenia. Chemistry indices do not demonstrate an RASHAD or electrolyte/liver enzyme derangements and beta hCG is undetectable. Urinalysis is negative for UTI or hematuria. Follow-up CT scan, no evidence of ureterolithiasis or hydronephrosis, patient provided with combination analgesics and discharged home with instructions to follow-up with primary care doctor. Differential Diagnosis Differential Diagnoses: The differential diagnosis associated with the presentation includes Please see the discussion above Admission/Observation Consideration of admission/observation: Escalation of care including admission/observation considered Please see the discussion above Lab Data MDM Lab Attestation statement: I reviewed the patient's lab results. Please see the discussion 01/11/24 19:38 01/11/24 19:38 Labs: Lab Results 01/11/24 Range/Units 19:38 WBC 8.8 (4.8-10.8) X10*3/uL RBC 5.04 (4.20-5.50) X10*6/uL Hgb 14.7 (12.0-16.0) g/dl Hct 42.5 (37.0-47.0) % MCV 84.3 (80.0-98.0) fL MCH 29.2 (27.0-33.0) pg MCHC 34.6 (31.0-35.0) g/dl RDW 13.0 (11.0-16.0) % Plt Count 227 (160-400) X10*3/uL MPV 10.1 (9.4-12.3) fL Immature Gran % (Auto) 0.7 H (0.0-0.4) % Neut % (Auto) 66.1 (45-73) % Lymph % (Auto) 24.8 (20-40) % [place] % (Auto) 6.9 (2-11) % Eos % (Auto) 1.0 (0-4) % Baso % (Auto) 0.5 (0-2) % Lymph # (Auto) 2.2 (1.2-4.9) X10*3/uL [place] # (Auto) 0.6 (0.1-1.2) X10*3/uL Eos # (Auto) 0.1 (0.0-0.4) X10*3/uL Baso # (Auto) 0.0 (0.0-0.2) X10*3/uL Abs Immat Gran (auto) 0.06 H (0.00-0.03) X10*3/uL Absolute Neuts (auto) 5.8 (2.0-8.3) x10*3/uL Absolute Nucleated RBC 0.000 (0.0-0.012) X10*3/uL Nucleated RBC % (auto) 0.0 (0.0-0.2) /100WBC Sodium 140 (135-145) mmol/L Potassium 4.1 (3.3-5.1) mmol/L Chloride 108 (96-108) mmol/L Carbon Dioxide 24 (22-29) mmol/L Anion Gap 12 (12-20) BUN 9 (9-16) mg/dL Creatinine 0.80 (0.5-1.4) mg/dL Estim Creat Clear Calc 128.0 Estimated GFR > 60 Random Glucose 94 (60-115) mg/dL Calcium 9.8 D (8.4-10.2) mg/dL Total Bilirubin 0.2 (0.0-1.0) mg/dL AST 20 (5-31) U/L ALT 36 H (0-31) U/L Alkaline Phosphatase 69 (39-117) U/L Total Protein 7.4 (6.5-8.0) g/dL Albumin 4.1 (3.5-5.0) g/dL Beta HCG, Quant < 2 mIU/mL Urine Color Yellow Urine Appearance Clear Urine pH 5.5 (5.0-9.0) Ur Specific [place] >= 1.030 H (1.005-1.025) Urine Protein Negative (Neg-Trace) mg/dL Urine Glucose (UA) Negative (Negative) mg/dL Urine Ketones Negative (Negative) mg/dL Urine Blood Negative (Negative) Urine Nitrite Negative (Negative) Ur Leukocyte Esterase Negative (Negative) Radiology Impression Discussion of test interpretation with radiology: I have reviewed the radiologist's reading. Radiologist Impression: Please see the discussion above External Record Review External record reviewed: Outpatient record, Prior outpatient labs and Prior outpatient radiology Critical Care Time Critical Care Time Critical Care Time: Yes Total Critical Care Time: 45 Attestation: I personally attest to this time spent taking care of the patient. Discharge Plan Discharge Clinical Impression: Left flank pain, UTI (urinary tract infection) Instructions: Flank Pain (ED) Additional Instructions: 1. Resume your antibiotics and complete the entire course. 2. Your workup has otherwise been negative today and recommend that you continue with antibiotics and use Tylenol ibuprofen for pain control. 3. Follow-up with your primary care doctor. Return to the ER for any worsening symptoms. Prescriptions: No Action escitalopram oxalate 20 mg tablet 1 tab PO DAILY Otezla 30 mg tablet 1 tab PO BID naproxen 500 mg tablet 500 mg PO Q8H PRN (Reason: pain (scale score 4-6)) Qty: 30 0RF Wegovy 2.4 mg/0.75 mL pen injector subcut pyridoxine (vitamin B6) 100 mg tablet 100 mg PO DAILY 90 Days Qty: 90 3RF Referrals: Komal Diaz MD [Primary Care Provider] - Print Language: Armenian
[2024-01-11 19:44] LABS: MANUAL DIFF FLAG NO
[2024-01-11 19:50] LABS: Basophils Percent Auto 0.5 % (0-2); Eosinophils Absolute Auto 0.1 X10*3/uL (0.0-0.4); Hematocrit 42.5 % (37.0-47.0); Hemoglobin 14.7 g/dl (12.0-16.0); Imm Gran Abs Auto 0.06 X10*3/uL (0.00-0.03); Imm Gran Pct Auto 0.7 % (0.0-0.4); Lymphocytes Absolute Auto 2.2 X10*3/uL (1.2-4.9); Lymphocytes Percent Auto 24.8 % (20-40); Mean Corpuscular HGB Conc 34.6 g/dl (31.0-35.0); Mean Corpuscular Hemoglobin 29.2 pg (27.0-33.0); Mean Corpuscular Volume 84.3 fL (80.0-98.0); Mean Platelet Volume 10.1 fL (9.4-12.3); Monocytes Absolute Auto 0.6 X10*3/uL (0.1-1.2); Monocytes Percent Auto 6.9 % (2-11); Neutrophils Absolute Auto 5.8 x10*3/uL (2.0-8.3); Neutrophils Percent Auto 66.1 % (45-73); Platelet Count 227 X10*3/uL (160-400); Red Blood Count 5.04 X10*6/uL (4.20-5.50); White Blood Count 8.8 X10*3/uL (4.8-10.8)
[2024-01-11 19:54] LABS: Appearance Urine Clear; Color Urine Yellow; Glucose Urine UA Negative (Negative); Leukocyte Esterase Urine Negative (Negative); Nitrite Urine Negative (Negative); PH 5.5 (5.0-9.0); Specific Gravity - Urine >= 1.030 (1.005-1.025); Urine Blood Negative (Negative); Urine Ketones Negative (Negative); Urine Protein Negative (Neg-Trace)
[2024-01-11 20:10] LABS: Alanine Aminotransferase 36 U/L (0-31); Albumin Level 4.1 g/dL (3.5-5.0); Alkaline Phosphatase 69 U/L (39-117); Anion Gap 12 (12-20); Aspartate Amino Transferase 20 U/L (5-31); Bilirubin Total 0.2 mg/dL (0.0-1.0); Blood Urea Nitrogen 9 mg/dL (9-16); Calcium 9.8 mg/dL (8.4-10.2); Carbon Dioxide 24 mmol/L (22-29); Chloride 108 mmol/L (96-108); Estimated Glomerular Filt Rate > 60; Glucose Random 94 mg/dL (60-115); Potassium 4.1 mmol/L (3.3-5.1); Sodium 140 mmol/L (135-145); Total Protein 7.4 g/dL (6.5-8.0)
[2024-01-11 20:11] LABS: HCG Quantitative < 2 mIU/mL
[2024-01-12] VITALS: BP 130/87; PULSE 80; RESP 16; TEMP 36.7; O2SAT 97
[2024-01-12 03:06] VITALS: BP 136/83; PULSE 76; RESP 16; TEMP 36.7; O2SAT 97
[2024-01-12] MEDS: Acetaminophen 325 MG TABLET 975 MG PO (04:01)
[2024-01-12] MEDS: Ibuprofen 400 MG TABLET PO (04:01)
[2024-01-12 04:05] VITALS: BP 136/83; PULSE 76; RESP 16; TEMP 36.7; O2SAT 97
== END 2024-01-12 04:05 | disposition home or self-care (01) ==
PROVIDERS: Registered Nurse Emergency; Emergency Provider Student in an Organized Health Care Education/Training Program; PCP Internal Medicine
DX: N39.0 Urinary tract infection, site not specified (principal); R10.9 Unspecified abdominal pain; R30.0 Dysuria; R35.0 Frequency of micturition; R11.0 Nausea; R68.83 Chills (without fever)
CPT/HCPCS: 36415; 74176; 80053; 81003; 84702; 85025; 99284

== ENCOUNTER 2025-02-11 10:49 | Emergency (ER) | payer OTHER, SELFPAY ==
--- NOTE | ~2025-02-11 | CT_ITS ---
EXAMINATION: CT HEAD WITHOUT CONTRAST CLINICAL INFORMATION: b/l floaters, blurred vision, AMBRIZ COMPARISON: None available. TECHNIQUE: Contiguous axial imaging was performed from the skull base to vertex without intravenous administration of contrast. This CT examination was performed using dose optimization techniques as appropriate, variously including the following: *Automated exposure control *Adjustment of mA and/or kV according to patient size (this includes techniques or standardized protocols for targeted exams where dose is matched to indication/reason for exam; i.e. extremities or head) *Use of iterative reconstruction technique DLP: 711 mGy-cm FINDINGS: Sellar/suprasellar region demonstrated no gross masses or focal hemorrhage. There is an intrasellar CSF prominence. No acute intracranial hemorrhage, mass effect, midline shift, hydrocephalus or herniation. [place]-white matter differentiation is normal. Posterior cranial fossa contents demonstrated no gross masses or mass effect. There is normal position of the cerebellar tonsils. Small retention cysts versus polyp, left maxillary sinus. No air-fluid levels in the included paranasal sinuses. Tympanic cavities and mastoid air cells are aerated. CT/CT head/brain wo IV con IMPRESSION: No acute intracranial hemorrhage. No acute or structural brain abnormality by CT. Electronically signed by: Desmnod Lua MD 02/11/2025 01:22 PM EDT
[2025-02-11 10:53] VITALS: BP 134/87; PULSE 85; RESP 16; TEMP 36.4; O2SAT 98; BMI 28.1
--- NOTE | 2025-02-11 10:54 | ED.GENADULT ---
HPI - General Adult General Chief complaint: Eye Problems Stated complaint: vission issues Time Seen by Provider: 02/11/25 15:14 Source: patient Mode of arrival: ambulatory Limitations: no limitations History of Present Illness ED Provider: DR. Uriarte HPI narrative: A 34-year-old female history of migraine came in for evaluation of 3 days of headache and blurry vision with intermittent seen floaters are both eyes, s/p minor head injury yesterday which was after the headache started. No fever, no chills. No sick contacts, no recent travel, patient with known history of migraine get headache every now and then, just started her menstruation yesterday which made the headache worse. Related Data Home Medications ?Medication ?Instructions ?Recorded ?Confirmed apremilast 30 mg tablet (Otezla) 1 tab PO BID 10/19/22 10/06/23 escitalopram oxalate 20 mg tablet 1 tab PO DAILY 10/19/22 10/06/23 semaglutide (weight loss) 2.4 mg subcut 10/06/23 10/06/23 mg/0.75 mL subcutaneous pen injector (Wegovy) Previous Rx's ?Medication ?Instructions ?Recorded naproxen 500 mg tablet 500 mg PO Q8H PRN pain (scale 06/15/23 score 4-6) #30 tabs pyridoxine (vitamin B6) 100 mg 100 mg PO DAILY 90 days #90 tabs 10/06/23 tablet Allergies Allergy/AdvReac Type Severity Reaction Status Date / Time haloperidol (From Haldol) AdvReac Unknown Verified 02/11/25 10:55 Review of Systems Review of Systems: All other systems are reviewed and are negative Constitutional: Reports as per HPI and Reports no additional constitutional complaints Eyes: Reports as per HPI and Reports no additional eye complaints Reports system reviewed and no additional complaints, except as documented Cardiovascular: Reports as per HPI and Reports no additional cardiovascular complaints Respiratory: Reports as per HPI and Reports no additional respiratory complaints Gastrointestinal: Reports as per HPI and Reports no additional gastrointestinal complaints Genitourinary: Reports no additional female genitourinary complaints Musculoskeletal: Reports no additional musculoskeletal complaints Skin/Breast: Reports system reviewed and no additional complaints, except as docu Psychiatric: Reports no additional psychiatric complaints Endocrine: Reports no additional endocrine complaints Hematologic/Lymphatic: Reports no additional hematologic/lymphatic complaints Allergic/Immunologic: Reports no additional allergic/immunologic complaints Reports system reviewed and no additional complaints, except as documented and Reports Abnormal speech present [facility] Past Medical History Medical History Ureteral stent present UTI (urinary tract infection) Pyelonephritis Syncope Vaso vagal episode IBS (irritable bowel syndrome) Surgical History No pertinent past surgical history Social History Social History Household Members: Spouse Household Members Other:: 2 Housing: House Do you presently have visiting nurse or other home services: No Alcohol intake: never Patient Tobacco Use Status: Never used Tobacco e-Cigarette/Vaping Use: Never Used Second Hand Smoke Exposure: No Substance Use Type: Marijuana Advance Directives: Yes Advance Directives on File: Yes Advance Directives Date on File: 10/25/22 Do you have a plan to hurt others: No Plan service: No Current occupational status: unemployed Physical Exam ED Vital Signs: Vital Signs - 24 hr 02/11/25 10:53 Temperature 97.5 F Pulse Rate 85 Respiratory Rate 16 Blood Pressure 134/87 Pulse Oximetry 98 Oxygen Delivery Method Room Air BMI result Body Mass Index 28.1 Vital signs have been reviewed and appear to be correct. Blood pressure elevated. Heart rate normal. Respiratory rate normal. Temperature normal. Oxygen saturation normal. Appearance: Alert. Oriented X3. No acute distress. Head: Normal external exam. Normocephalic. Atraumatic. No Ellison signs noted. No raccoon eyes noted Eyes: [place] 20/20 right/20/20 left/20/20 bilateral. Patient reports blurred vision to both eyes General: appearance normal, both eyes and all related structures Visual Klein: normal visual klein by confrontation Alignment and Position: alignment normal and position normal Periorbital: periorbital findings normal Eyelids: Yes eyelids normal Conjunctivae: conjunctivae normal Sclerae: sclerae normal Corneas: corneas normal Pupils: Equal, round and reactive pupils present and Pupil accommodation reflex normal EOM: EOM abnormal (Limited abduction of right eye) and No Nystagmus present Direct Ophthalmoscopy: normal light reflex, no photophobia, no papilledema and fundi normal bilaterally ENT: TM's Normal. Pharynx normal. Uvula midline. Moist mucous membranes. No trismus noted. No drooling noted. No muffled voice noted. Neck: Normal inspection. Neck supple. FROM. No adenopathy. Thyroid Normal. No meningeal signs. No neck mass noted. CVS: Normal heart rate and rhythm. Heart sound normal. No murmurs noted. Pulses normal throughout. Respiratory: No respiratory distress. Painless inspiration. Breath sounds normal. No wheezes/rales/rhonchi noted. Chest nontender. No accessory muscle usage noted or decreased air movement noted. Abdomen: Soft and nontender. Bowel sounds normal in all 4 quadrants. No distention noted. No organomegaly noted. No visible injury noted. Back: No CVA tenderness. Full range of motion noted. Skin: Skin warm and dry. Normal skin color. Normal skin turgor. No rashes/lesions/lacerations noted. Extremities: No lower extremity edema. Extremities exhibit normal range of motion. Extremities nontender. Neuro: Mental status: Normal attention, orientation, memory, and affect. Cranial nerves: Pupils are equal, round and reactive to light, EOMI, visual klein are fall, face is symmetric, facial sensations are normal. Motor examination normal muscle tone, strength to 4 extremities. DTR are +2, planter's are flexor. Sensory exam; normal coordination, no ataxia, gait stable. Cerebellar exam: [id number] and slsc-pm-asot is normal. Extrapyramidal system: No tremors, no rigidity with normal facial expressions. Pronator drift not present Course Course Course Narrative: 02/11/25 1056 BHAVANI Lopez This is a Rapid Medical Examination (RME) performed by Albertina Hendricks PA-C in triage. Full HPI, ROS, assessment and treatment plan per primary provider in the Main ED. Hx: 34 yo F hx of migraines here for eval of intermittent floaters/blurred vision and AMBRIZ x3 days. no head strike. no thinners. PE/vitals: exam nonfocal. Plan: labs, CT head Reevaluation(s) Reevaluation #1: Patient received IV Tylenol, IV Toradol, and IV hydration. Repeat neuro exam is intact, patient feels much better, normal eye exam. Discharge to follow-up with PCP, and Neurology. Time: 16:58 Medications Administered Discontinued Medications Generic Name Dose Route Start Last Admin Trade Name Pelon PRN Reason Stop Dose Admin Acetaminophen 650 mg 02/11/25 13:06 02/11/25 15:46 Acetaminophen 325 Mg Tablet PO 02/11/25 13:07 Not Given ONCE ONE Acetaminophen 1,000 mg in 100 mls @ 400 mls/hr 02/11/25 15:26 02/11/25 16:02 Ofirmev IV 02/11/25 15:40 Infused ONCE ONE Infusion Sodium Chloride 1,000 mls @ 999 mls/hr 02/11/25 15:26 02/11/25 17:02 Ns IV 02/11/25 16:26 Infused .Q1H1M ONE Infusion Ketorolac Tromethamine 15 mg 02/11/25 15:27 02/11/25 15:43 Ketorolac Tromethamine 15 Mg/Ml Vial IVPUSH 02/11/25 15:28 15 mg ONCE ONE Administration Medical Decision Making Differential Diagnosis Differential Diagnoses: The differential diagnosis associated with the presentation includes (Intracranial bleed, ocular migraine, headache.) Admission/Observation Consideration of admission/observation: Escalation of care including admission/observation considered Lab Data MDM Lab Attestation statement: I reviewed the patient's lab results. 02/11/25 13:00 02/11/25 13:00 Labs: Lab Results 02/11/25 Range/Units 13:00 WBC 7.4 (4.8-10.8) X10*3/uL RBC 4.91 (4.20-5.50) X10*6/uL Hgb 13.8 (12.0-16.0) g/dl Hct 42.1 (37.0-47.0) % MCV 85.7 (80.0-98.0) fL MCH 28.1 (27.0-33.0) pg MCHC 32.8 (31.0-35.0) g/dl RDW 13.0 (11.0-16.0) % Plt Count 229 (160-400) X10*3/uL MPV 10.1 (9.4-12.3) fL Immature Gran % (Auto) 0.4 (0.0-0.4) % Neut % (Auto) 57.8 (45-73) % Lymph % (Auto) 32.3 (20-40) % [place] % (Auto) 7.3 (2-11) % Eos % (Auto) 1.8 (0-4) % Baso % (Auto) 0.4 (0-2) % Lymph # (Auto) 2.4 (1.2-4.9) X10*3/uL [place] # (Auto) 0.5 (0.1-1.2) X10*3/uL Eos # (Auto) 0.1 (0.0-0.4) X10*3/uL Baso # (Auto) 0.0 (0.0-0.2) X10*3/uL Abs Immat Gran (auto) 0.03 (0.00-0.03) X10*3/uL Absolute Neuts (auto) 4.3 (2.0-8.3) x10*3/uL Absolute Nucleated RBC 0.000 (0.0-0.012) X10*3/uL Nucleated RBC % (auto) 0.0 (0.0-0.2) /100WBC ESR 16 (0-20) MM/HR Sodium 141 (135-145) mmol/L Potassium 4.0 (3.3-5.1) mmol/L Chloride 109 H (96-108) mmol/L Carbon Dioxide 26 (22-29) mmol/L Anion Gap 10 L (12-20) BUN 10 (9-16) mg/dL Creatinine 0.78 (0.5-1.4) mg/dL Estim Creat Clear Calc 114.2 Estimated GFR > 60 Random Glucose 93 (60-115) mg/dL Calcium 8.9 D (8.4-10.2) mg/dL Magnesium 2.2 (1.6-2.6) mg/dL Total Bilirubin 0.2 (0.0-1.0) mg/dL AST 22 (5-31) U/L ALT 22 (0-31) U/L Alkaline Phosphatase 65 (39-117) U/L C-Reactive Protein 0.45 (< or = 0.50) mg/dL Total Protein 6.7 (6.5-8.0) g/dL Albumin 4.0 (3.5-5.0) g/dL Beta HCG, Quant < 2 mIU/mL Independent Interpretation I performed an independent interpretation of an: CT Scan (Head: No acute intra cranial pathology) Radiology Impression Discussion of test interpretation with radiology: I have reviewed the radiologist's reading. Discharge Plan Discharge Clinical Impression: Ocular migraine Patient Disposition: Home, Self-Care Instructions: Ocular Migraine (ED) Prescriptions: No Action escitalopram oxalate 20 mg tablet 1 tab PO DAILY Otezla 30 mg tablet 1 tab PO BID naproxen 500 mg tablet 500 mg PO Q8H PRN (Reason: pain (scale score 4-6)) Qty: 30 0RF Wegovy 2.4 mg/0.75 mL pen injector subcut pyridoxine (vitamin B6) 100 mg tablet 100 mg PO DAILY 90 Days Qty: 90 3RF Referrals: Komal Diaz MD [Primary Care Provider, Internal Medicine] Amilcar Torres MD [Physician, Neurology] Print Language: Puerto Rican
[2025-02-11 13:08] LABS: MANUAL DIFF FLAG NO
[2025-02-11 13:13] LABS: Hematocrit 42.1 % (37.0-47.0); Hemoglobin 13.8 g/dl (12.0-16.0); Imm Gran Abs Auto 0.03 X10*3/uL (0.00-0.03); Imm Gran Pct Auto 0.4 % (0.0-0.4); Lymphocytes Absolute Auto 2.4 X10*3/uL (1.2-4.9); Mean Corpuscular HGB Conc 32.8 g/dl (31.0-35.0); Mean Corpuscular Hemoglobin 28.1 pg (27.0-33.0); Mean Corpuscular Volume 85.7 fL (80.0-98.0); NRBC Abs Auto 0.000 X10*3/uL (0.0-0.012); NRBC Pct Auto 0.0 /100WBC (0.0-0.2); Platelet Count 229 X10*3/uL (160-400); Red Blood Count 4.91 X10*6/uL (4.20-5.50); White Blood Count 7.4 X10*3/uL (4.8-10.8)
[2025-02-11 13:33] LABS: Alanine Aminotransferase 22 U/L (0-31); Albumin Level 4.0 g/dL (3.5-5.0); Alkaline Phosphatase 65 U/L (39-117); Anion Gap 10 (12-20); Aspartate Amino Transferase 22 U/L (5-31); Blood Urea Nitrogen 10 mg/dL (9-16); Calcium 8.9 mg/dL (8.4-10.2); Carbon Dioxide 26 mmol/L (22-29); Chloride 109 mmol/L (96-108); Creatinine Clr Calc Pharmacy 114.2; Estimated Glomerular Filt Rate > 60; Magnesium 2.2 mg/dL (1.6-2.6); Potassium 4.0 mmol/L (3.3-5.1); Sodium 141 mmol/L (135-145); Total Protein 6.7 g/dL (6.5-8.0)
--- OUTSIDE RECORDS SUMMARY | 2025-02-11 16:51 | XMS_ITS ---
Author Name [facility] Organization Unknown Encounters Encounter Type Encounter Reason Primary Diagnosis Location Date Ambulatory [facility] 05/11/2024 Care Team Organization Name Specialty Phone Email Start Date End Da te [facility] 2024
--- OUTSIDE RECORDS SUMMARY | 2025-02-11 16:51 | XMS_ITS | Encounter Summary ---
Author Organization [facility] Address [address] [place] [address] Care Team Providers Care Border Machine Operator Name Role Phone Komal Diaz MD Primary Care Prov ider Reason for Visit * Reason Onset Date Comments Eye Problem 02/11/2025 Encounter Details Date Type Department Care Team (Late st Contact Info) Description 02/11/2025 Telephone Adult Medicine - [place] [address] [place] [phone] Komal Diaz MD [address] [place] [address] Eye Problem Social History Tobacco Use Types Packs/Day Years Used Date Smoking Tobacco: Never Smokeless Tobacco: Never Alcohol Use Standard Drinks/Week Comments No 0 (1 standard drink = 0.6 oz pur e alcohol) Financial Risk Answer Date Recorded How hard is it for you to pa y for the very basics like food, housing, medical care, and air conditioning / heating? Somewhat hard 10/28/2024 Comments No Sex and Gender Information Value Date Recorded Sex Assigned at Not on file Legal Sex Female 6:06 PM EST Gender Identity Not on file Sexual Orientation Not on file documented as of this encounter Progress Notes * Jose A Gonzalez RN - 02/11/2025 9:31 AM EDT Pt states that she has lights flashing and cascading down in her eye , she is having blurriness andspinning, pt states that she cannot get int an eye dr , pt was advised to go to the er , pt agreed * Jessica Alcala - 02/11/2025 9:21 AM EDT Patient call requires triage: Symptoms patient is presenting: visual disturbances - flashing lights,blurry - spinning in her eye How long has patient had these symptoms?: 2 days For ALL patients calling to schedule any appointment (routine, sick visit, follow up, consult, etc.) in the outpatient setting please ask the following questions: Do you have fever of higher than 101, sore throat with difficulty swallowing or severe shortness ofbreath? no If YES to any of these above symptoms, send a message to triage and do not book. Red dot. If no, an audio or video visit should be booked. Have you had close contact with someone with Coronavirus in the last 14 days? no Have you traveled abroad? no Have you traveled recently to another state outside of [place], [place], [place], [place], [place], [place], [place]? no o If yes, did you quarantine for 14 days or have a negative covid test? no If yes to any of the above, patient is not to be scheduled in office until after 14 day quarantine or negative covid test. If pain or injury related was it due to an accident at work or from a motor vehicle accident? If yes, date of accident/Injury: No If yes, gather 3rd democrat insurance information [employer] Party Information: not applicable PCP: Komal Diaz MD Payor: [facility] / Plan: [facility] / Product Type: *No Product type* / documented in this encounter Plan of Treatment Upcoming Encounters Date Type Department Care Team (Late st Contact Info) Description 03/18/2025 11:15 AM EDT Office Visit Adult Medicine - [place] [address] [place] [phone] Zane Haro PA [address] [place] [address] 07/16/2025 1:00 PM EST Office Visit Pulmonolgy - [place] [address] [place] [id number] Brooke Mitchell, TRUNG [address] [place] [address] documented as of this encounter Visit Diagnoses Not on filedocumented in this encounter Additional Health Concerns Assessment Noted Time PHQ-9 Depression Total Score: 1 08/24/19 25 1:13 PM EST documented as of this encounter Care Teams Border Machine Operator Relationship Specialty Start Date End Date Komal Diaz MD [address] [place] [id number] PCP - General 02/27/10 documented as of this encounter
--- OUTSIDE RECORDS SUMMARY | 2025-02-11 16:51 | XMS_ITS | Clinical Summary ---
Author Organization [facility] Address [address] [place] [address] Care Team Providers Care Sales Consultant Residential Manager Name Role Phone Unavailable Primary Care Provider Unavailabl e Allergies No known active allergies Medications Medication Sig Dispensed Refills Start Date End Date Status escitalopram (LEXAPRO) tablet 10 mg Take 10 mg by mouth daily. PT UNSURE OF DOSE 0 Active etonogestrel-ethinyl estradiol (NUVARING) 0.12-0.015 MG/24HR vaginal ring Place 1 each vaginally every 28 days. Insert vaginally and leave in place for 3 consecutive weeks, then remove for 1 week. 0 Active prazosin (MINIPRESS) 1 MG capsule TAKE ONE CAPSULE BY MOUTH AT BEDTIME 0 03/28/2017 Active hydrOXYzine (ATARAX) 50 MG tablet TAKE 1 TABLET TWICE A DAY NEEDED FOR ANXIETY OR SLEEP 2 05/14/2017 Active Active Problems Problem Noted Date Diagnosed Date Anxiety state 06/16/2017 Social History Tobacco Use Types Packs/Day Years Used Date Smoking Tobacco: Never Smokeless Tobacco: Never Alcohol Use Standard Drinks/Week Comments No 0 (1 standard drink = 0.6 oz pur e alcohol) Sex and Gender Information Value Date Recorded Sex Assigned at Not on file Gender Identity Not on file Sexual Orientation Not on file Job Start Date Occupation Industry Not on file Not on file Not on file Last Filed Vital Signs Vital Sign Reading Time Taken Comments Blood Pressure 116/84 10/12/2017 10:56 AM EDT Pulse 120 05/06/2017 11:07 AM EDT Temperature 36.4 C (97.6 F) 10/12/2017 10:56 AM EDT Respiratory Rate - - Oxygen Saturation 99% 05/06/2017 11:07 AM EDT Inhaled Oxygen Concentration - - Weight 114.8 kg (253 lb) 07/05/2017 2:07 PM EST Height - - Body Mass Index - - Plan of Treatment Health Maintenance Due Date Last Done Comments Hepatitis B Vaccines (1 of 3 - 3-dose series) 1989 Hepatitis C Screening 1989 COVID-19 Vaccine (#1) 06/02/1990 Depression Screening 2001 Preventative Health Evaluation 12/01/2007 Cervical Cancer Screening (Pap Smear) 2010 DTap / Tdap / Td (7 - Td or Tdap) 12/12/2016 12/12/2006, 03/29/1995, 07/13/1991, Additional history exists Influenza Vaccine (#1) 2025 05/17/2011 Pneumococcal Vaccine Aged Out No long er eligible based on patient's age to complete this topic RSV Ped < 20 months Aged Out No longe r eligible based on patient's age to complete this topic Kristine Orr Personal/Family Self 1990 [address] [place] [address] Kristine Orr Personal/Family Self 1990 [address] [place] [address]
[2025-02-11 18:03] VITALS: BP 139/86; PULSE 84; RESP 16; TEMP 36.6; O2SAT 99
[2025-02-11 18:04] VITALS: BP 139/86; PULSE 84; RESP 16; TEMP 36.6; O2SAT 99
== END 2025-02-11 18:04 | disposition home or self-care (01) ==
PROVIDERS: Physician Assistant Medical; Emergency Provider Emergency Medicine; PCP Internal Medicine
DX: G43.109 Migraine with aura, not intractable, without status migrainosus (principal); H53.8 Other visual disturbances
CPT/HCPCS: 36415; 70450; 80053; 83735; 84702; 85025; 85652; 86140; 96361; 96374; 96375; 99284; J0131; J1885

== ENCOUNTER → 2025-02-11 10:54 | Outpatient (BNV) | payer OTHER, SELFPAY | PROVIDERS: Emergency Provider Emergency Medicine; PCP Internal Medicine; Visit Provider Radiology Diagnostic Radiology | DX: R51.9 Headache, unspecified (principal); H53.8 Other visual disturbances; H43.393 Other vitreous opacities, bilateral | CPT/HCPCS: 70450 ==